=== PATIENT | female | born 1960 | race Hispanic/Latino ===

== ENCOUNTER 2018-10-24 13:42 | Emergency (ER) | payer SELFPAY ==
[2018-10-24] MEDS ORDERED: AZITHROMYCIN 200 MG/5ML ORAL SUSP ONE (14:12)
[2018-10-24] MEDS ORDERED: AMOX/K CLAV 875 MG TAB ONE (14:18)
[2018-10-24] MEDS ORDERED: HYDROCODONE/APAP 10/325 TAB ONE (14:18)
[2018-10-24] MEDS ORDERED: LIDOCAINE 1% 20 ML MDV ONE (14:18)
--- NOTE | 2018-10-24 14:43 | RAD REPORT ---
EXAM DESCRIPTION: RAD -Hand Left 3 View - 10/24/2018 2:34 pm CLINICAL HISTORY: Left hand pain status post injury FINDINGS: Moderately displaced fracture involves the base of the first metacarpal. No dislocation seen. The bones are osteoporotic
[2018-10-24] MEDS ORDERED: CEFAZOLIN SODIUM 1 GM/VIAL ONE (15:24)
[2018-10-24] MEDS ORDERED: NA CHLORIDE 0.9% 100 ML IV ONE (15:24)
--- NOTE | 2018-10-24 16:23 | RAD REPORT ---
EXAM DESCRIPTION: RAD - Humerus Right - 10/24/2018 4:17 pm CLINICAL HISTORY: PAIN Animal bite, pain and swelling COMPARISON: Hand Left 3 View dated 10/24/2018 FINDINGS: No fracture, dislocation or aggressive marrow lesion. No radiopaque foreign body seen.
--- NOTE | 2018-10-24 16:28 | ER ---
Nurse's Notes [facility] Name: Alexander Byrd Age: 58 yrs Sex: Female : 1960 Arrival Date: 10/24/2018 Time: 13:44 Bed 19 Private MD: None, None Diagnosis: Displaced fracture of shaft of first metacarpal bone, left hand;Bitten by dog;Puncture wound without foreign body of left hand;Laceration without foreign body of right upper arm Presentation: 10/24 13:54 Presenting complaint: Patient states: Dog bite to R upper arm and L wrist/ hand that ss occurred approx 45 minutes ago while at home attempting to separate her two dogs. [place] [employer] have been notified and were on scene as well as EMS. Transition of care: patient was not received from another setting of care. Onset of symptoms was October 24, 2018. Risk Assessment: Do you want to hurt yourself or someone else? Patient reports no desire to harm self or others. Initial Sepsis Screen: Does the patient meet any 2 criteria? RR > 20 per min. Does the patient have a suspected source of infection? No. Patient's initial sepsis screen is negative. Care prior to arrival: None. Care prior to arrival: kerlix dressing placed By EMS to L wrist/ hand. 13:54 Acuity: ISAIAS 3 ss 13:54 Method Of Arrival: Ambulatory ss Triage Assessment: 14:15 Bite description: bite sustained to right tricep and right bicep and right arm and left hb hand by a dog, animal information: vaccination(s) is current. Historical: - Allergies: 13:57 Advil (lip swelling); ss 13:57 peanuts; ss - PMHx: 13:57 Anxiety; ss - Immunization history:: Adult Immunizations up to date. - Social history:: Smoking status: Patient/guardian denies using tobacco. - Ebola Screening: : Patient denies exposure to infectious person Patient denies travel to an Ebola-affected area in the 21 days before illness onset. Screenin:15 Abuse screen: Denies threats or abuse. Denies injuries from another. Nutritional hb screening: No deficits noted. Tuberculosis screening: No symptoms or risk factors identified. Fall Risk None identified. Assessment: 14:05 General: Appears in no apparent distress. Behavior is cooperative, crying. Pain: Pain hb currently is 8 out of 10 on a pain scale. Neuro: Level of Consciousness is awake, alert, obeys commands, Oriented to person, place, time, situation. Cardiovascular: Heart tones S1 S2 Capillary refill < 3 seconds Patient's skin is warm and dry. Respiratory: Airway is patent Respiratory effort is even, unlabored, Respiratory pattern is regular, symmetrical, Breath sounds are clear bilaterally. GI: No signs and/or symptoms were reported involving the gastrointestinal system. : No signs and/or symptoms were reported regarding the genitourinary system. EENT: No signs and/or symptoms were reported regarding the EENT system. Derm: Skin is healthy with good turgor, Skin is pink, warm \T\ dry. Musculoskeletal: No signs and/or symptoms reported regarding the musculoskeletal system. Injury Description: multiple puncture wound to left hand, hematoma to left hand and right upper arm, lacerations to right upper arm x 3. 15:00 Reassessment: Patient appears in no apparent distress at this time. Patient and/or hb family updated on plan of care and expected duration. Pain level reassessed. Patient is alert, oriented x 3, equal unlabored respirations, skin warm/dry/pink. 15:50 Reassessment: [place] [employer] Event #[id number]. hb 16:00 Reassessment: Patient appears in no apparent distress at this time. No changes from previously documented assessment. Patient and/or family updated on plan of care and expected duration. Pain level reassessed. Patient is alert, oriented x 3, equal unlabored respirations, skin warm/dry/pink. 16:08 Reassessment: Pt refused tetanus vaccine, WATER CONSERVATION SPECIALIST Zuri lazcano. hb 17:00 Reassessment: Patient appears in no apparent distress at this time. Patient and/or hb family updated on plan of care and expected duration. Pain level reassessed. Patient is alert, oriented x 3, equal unlabored respirations, skin warm/dry/pink. Transfer to [facility] pending. Vital Signs: 13:53 BP 125 / 83; Pulse 107; Resp 22; Temp 99.0(TE); Pulse Ox 97% on R/A; Weight 68.04 kg; ss Height 5 ft. 3 in. (160.02 cm); Pain 8/10; 15:00 BP 126 / 76; Pulse 89; Resp 16; Pulse Ox 100% on R/A; hb 16:30 BP 122 / 70; Pulse 75; Resp 16; Temp 98.7; Pulse Ox 100% on R/A; Pain 4/10; hb 13:53 Body Mass Index 26.57 (68.04 kg, 160.02 cm) ED Course: 13:44 Patient arrived in ED. mr 13:44 None, None is Private Physician. mr 13:54 Zuri Fontana, [facility] kb 13:54 Elier Patrick MD is Attending Physician. kb 13:55 Triage completed. ss 13:57 Arm band placed on left wrist. ss 14:00 Patient has correct armband on for positive identification. Bed in low position. Call hb light in reach. Side rails up X 1. 14:05 Galina Le, STONE is Primary Nurse. hb 14:15 Wound care: cleaned wounds to left hand and right upper arm with chlorhexidine and dh3 normal saline. Soaked wounds to left hand with Betadine and normal saline. Temporary dressing applied to right upper arm wounds with wet gauze and Kerlix. 14:30 X-ray completed. Portable x-ray completed in exam room. Patient tolerated procedure jb2 well. 14:35 Hand Left 3 View XRAY In Process Unspecified. EDMS 16:17 X-ray completed. Portable x-ray completed in exam room. Patient tolerated procedure ls3 well. 16:18 Humerus Right XRAY In Process Unspecified. EDMS 16:47 Dressings: Kerlix X 2; left hand and right upper arm non-adherent dressing x 4 left dh3 hand and right upper arm. 17:30 No provider procedures requiring assistance completed. Patient transferred, IV remains hb in place. Administered Medications: 14:11 Drug: [place] 10 mg-325 mg 1 tabs Route: PO; hb 15:00 Follow up: Response: No adverse reaction hb 14:11 Drug: Augmentin 875 mg Route: PO; hb 15:00 Follow up: Response: No adverse reaction hb 14:50 Drug: Lidocaine (1 %) 1 vials {Note: by AMADOU Keating.} Volume: 20 ml; Route: Infiltration;hb 15:30 Follow up: Response: No adverse reaction hb 15:26 Drug: Ancef 1 grams Route: IVPB; Site: left antecubital; hb 16:08 Follow up: Response: No adverse reaction; IV Status: Completed infusion hb 16:08 Not Given (Patient Refused): Tetanus-Diphtheria Toxoid Adult 0.5 ml IM once hb 17:12 Drug: Unasyn 3 grams Route: IVPB; Infused Over: 30 mins; Site: left antecubital; hb 17:42 Follow up: Response: No adverse reaction; IV Status: Completed infusion hb Outcome: 16:28 ER care complete, transfer ordered by MD. krause 17:50 Transferred by ground EMS to [facility]. hb 17:50 Condition: stable 17:50 Instructed on the need for transfer, Demonstrated understanding of instructions. 17:52 Patient left the ED. hb Signatures: Dispatcher [employer] EDMS Zuri Fontana, PROCESSING TALC AND BORATE SUPERVISOR-C PROCESSING TALC AND BORATE SUPERVISOR-Ham RobertoaNilam Simon Moreira jb2 Simona Bailey RN RN Galina Le RN RN Talita Schaefer dh3 Monica Dailey ls3 Corrections: (The following items were deleted from the chart) 14:26 14:15 Wound care: cleaned wounds to left hand and right upper arm with chlorhexidine dh3 and normal saline. Soaked wounds to left hand with Betadine and normal saline. Dressed right upper arm wounds with wet gauze and Kerlix. dh3
--- NOTE | 2018-10-24 16:28 | EDPHYS ---
Physician Documentation [facility] Name: Alexander Byrd Age: 58 yrs Sex: Female : 1960 Arrival Date: 10/24/2018 Time: 13:44 Bed 19 Private MD: None, None ED Physician Elier Patrick HPI: 10/24 14:07 This 58 yrs old Female presents to ER via Ambulatory with complaints of Dog kb Bite. 14:07 The patient was bitten on the left hand and right upper arm, by a dog, while trying to kb stop animals from fighting, at home. Onset: The symptoms/episode began/occurred just prior to arrival. Animal information: The animal was reported to appear healthy. Animal's vaccinations are up to date. Secondary to the bite the patient reports multiple lacerations, that are superficial, with the longest being 2 cm(s), pain, swelling. Associated signs and symptoms: Pertinent positives: pain at site, swelling at site, tenderness. Severity of symptoms: At their worst the symptoms were moderate, in the emergency department the symptoms are unchanged. The patient has not experienced similar symptoms in the past. The patient has not recently seen a physician. Pt reports her dogs were fighting so she tried to break them up and ended up getting bitten. 3 lacerations to right upper arm, bleeding controlled. Decreased ROM and large hematomas to left hand, 2 puncture wounds/lacerations to left hand. Flip SHERMAN on scene to take report. Historical: - Allergies: 13:57 Advil (lip swelling); ss 13:57 peanuts; ss - PMHx: 13:57 Anxiety; ss - Immunization history:: Adult Immunizations up to date. - Social history:: Smoking status: Patient/guardian denies using tobacco. - Ebola Screening: : Patient denies exposure to infectious person Patient denies travel to an Ebola-affected area in the 21 days before illness onset. ROS: 14:04 Constitutional: Negative for fever, chills, and weight loss, ENT: Negative for injury, kb pain, and discharge, Neck: Negative for injury, pain, and swelling, Cardiovascular: Negative for chest pain, palpitations, and edema, Respiratory: Negative for shortness of breath, cough, wheezing, and pleuritic chest pain, Abdomen/GI: Negative for abdominal pain, nausea, vomiting, diarrhea, and constipation, Neuro: Negative for headache, weakness, numbness, tingling, and seizure. 14:04 MS/extremity: Positive for injury or acute deformity, bite, decreased range of motion, ecchymosis, pain, swelling, tenderness, of the left hand. 14:04 Skin: Positive for ecchymosis, hematoma, laceration(s), puncture, swelling, of the left hand and right upper arm. Exam: 14:04 Constitutional: This is a well developed, well nourished patient who is awake, alert, kb and in no acute distress. Head/Face: Normocephalic, atraumatic. Chest/axilla: Normal chest wall appearance and motion. Nontender with no deformity. No lesions are appreciated. Cardiovascular: Regular rate and rhythm with a normal S1 and S2. No gallops, murmurs, or rubs. Normal PMI, no JVD. No pulse deficits. Respiratory: Lungs have equal breath sounds bilaterally, clear to auscultation and percussion. No rales, rhonchi or wheezes noted. No increased work of breathing, no retractions or nasal flaring. Abdomen/GI: Soft, non-tender, with normal bowel sounds. No distension or tympany. No guarding or rebound. No evidence of tenderness throughout. Neuro: Awake and alert, GCS 15, oriented to person, place, time, and situation. Cranial nerves II-XII grossly intact. Motor strength 5/5 in all extremities. Sensory grossly intact. Cerebellar exam normal. Normal gait. 14:04 Musculoskeletal/extremity: Extremities: grossly normal except: noted in the left hand: bite, decreased ROM, ecchymosis, pain, swelling, tenderness, ROM: limited active range of motion due to pain, in the left hand, Circulation is intact in all extremities. Sensation intact. 14:04 Skin: injury, bite(s), superficial, jagged, of the left hand and right upper arm, laceration(s), the wound is approximately 1.5 cm(s), of the right bicep, the second wound is approximately 2 cm(s), of the right tricep, the third wound is approximately 1.5 cm(s), of the right tricep, that can be described as clean, no foreign body, irregular. Vital Signs: 13:53 BP 125 / 83; Pulse 107; Resp 22; Temp 99.0(TE); Pulse Ox 97% on R/A; Weight 68.04 kg; ss Height 5 ft. 3 in. (160.02 cm); Pain 8/10; 15:00 BP 126 / 76; Pulse 89; Resp 16; Pulse Ox 100% on R/A; hb 16:30 BP 122 / 70; Pulse 75; Resp 16; Temp 98.7; Pulse Ox 100% on R/A; Pain 4/10; hb 13:53 Body Mass Index 26.57 (68.04 kg, 160.02 cm) ss Laceration: 15:47 Wound Repair of 2cm ( 0.8in ) subcutaneous laceration to right tricep. Linear shaped.. kb Distal neuro/vascular/tendon intact. Anesthesia: Wound infiltrated with 1 mls of 1% lidocaine. Wound prep: Extensive cleansing with hibiclenz by me, Wound irrigation with saline by me. Skin closed with 2 5-0 Prolene using interrupted sutures and sterile technique. Dressed with bandaid. Patient tolerated well. 15:47 Wound Repair of 2cm ( 0.8in ) subcutaneous laceration to right tricep. Linear shaped.. kb Distal neuro/vascular/tendon intact. Anesthesia: Wound infiltrated with 1 mls of 1% lidocaine. Wound prep: Extensive cleansing with hibiclenz by me, Wound irrigation with saline by me. Skin closed with 2 5-0 Prolene using interrupted sutures and sterile technique. Dressed with bandaid. Patient tolerated well. 15:47 Wound Repair of 1.5cm ( 0.6in ) subcutaneous laceration to right bicep. Linear shaped.. kb Distal neuro/vascular/tendon intact. Anesthesia: Wound infiltrated with 1 mls of 1% lidocaine. Wound prep: Moderate cleansing with hibiclenz by me, Wound irrigation with saline by me. Skin closed with 1 5-0 Prolene using interrupted sutures and sterile technique. Dressed with bandaid. Patient tolerated well. MDM: 13:54 Patient medically screened. kb 14:07 Data reviewed: vital signs, nurses notes. Data interpreted: Pulse oximetry: on room air kb is 97 %. Interpretation: normal. 15:01 Physician consultation: Esa Alves MD was called at 15:01, regarding consult, jimi voicemail left, awaiting call back . 15:49 Physician consultation: Esa Alves MD was contacted at 15:15, regarding consult, patient's condition, after a discussion of the case, a recommendation for transfer for higher level of care is made. 16:26 Counseling: I had a detailed discussion with the patient and/or guardian regarding: the historical points, exam findings, and any diagnostic results supporting the discharge/admit diagnosis, radiology results, the need to transfer to another facility, for higher level of care, [facility] does not immediately have the required specialist. ED course: Dr Moy, hand surgeon at [facility], accepted pt for transfer. 10/24 14:01 Order name: Hand Left 3 View XRAY; Complete Time: 14:49 kb 10/24 15:46 Order name: Humerus Right XRAY; Complete Time: 16:25 kb 10/24 14:01 Order name: Prolene, Sutures; Complete Time: 14:14 kb 10/24 14:01 Order name: Dressing - Wound; Complete Time: 16:49 kb 10/24 14:01 Order name: Gloves, Sterile; Complete Time: 14:14 kb 10/24 14:01 Order name: Setup Suture Tray; Complete Time: 14:14 kb 10/24 15:02 Order name: IV Start; Complete Time: 15:27 kb Administered Medications: 14:11 Drug: [place] 10 mg-325 mg 1 tabs Route: PO; hb 15:00 Follow up: Response: No adverse reaction hb 14:11 Drug: Augmentin 875 mg Route: PO; hb 15:00 Follow up: Response: No adverse reaction hb 14:50 Drug: Lidocaine (1 %) 1 vials {Note: by AMADOU Keating.} Volume: 20 ml; Route: Infiltration;hb 15:30 Follow up: Response: No adverse reaction hb 15:26 Drug: Ancef 1 grams Route: IVPB; Site: left antecubital; hb 16:08 Follow up: Response: No adverse reaction; IV Status: Completed infusion hb 16:08 Not Given (Patient Refused): Tetanus-Diphtheria Toxoid Adult 0.5 ml IM once hb 17:12 Drug: Unasyn 3 grams Route: IVPB; Infused Over: 30 mins; Site: left antecubital; hb 17:42 Follow up: Response: No adverse reaction; IV Status: Completed infusion hb Disposition: 10/25 07:17 Co-signature as Attending Physician, Elier Patrick MD I agree with the assessment and bar plan of care. Disposition: 10/24/18 16:28 Transfer ordered to [facility]. Diagnosis are Displaced fracture of shaft of first metacarpal bone, left hand, Bitten by dog, Puncture wound without foreign body of left hand, Laceration without foreign body of right upper arm. - Reason for transfer: Higher level of care. - Accepting physician is Chinmay. - Condition is Stable. - Problem is new. - Symptoms are unchanged. Signatures: Dispatcher [employer] EDMS Zuri Fontana, WET PRESS TENDER-C WET PRESS TENDER-Ckb Elier Patrick MD MD cha Smirch, Shelby, STONE RITTER Galina Le RN RN Corrections: (The following items were deleted from the chart) 10/24 17:52 16:28 10/24/2018 16:28 Transfer ordered to [facility]. hb Diagnosis is Displaced fracture of shaft of first metacarpal bone, left hand; Bitten by dog; Puncture wound without foreign body of left hand; Laceration without foreign body of right upper arm. Reason for transfer: Higher level of care. Accepting physician is Chinmay. Condition is Stable. Problem is new. Symptoms are unchanged. kb
[2018-10-24] MEDS ORDERED: AMPICILLIN/SULBACT 3 GM in NA CHLORIDE 0.9% 100 ML IVPB ONE (17:00)
== END 2018-10-24 17:52 | disposition short-term general hospital (02) ==
LOC: ER 13:42
PROC: 0JQD0ZZ Repair Right Upper Arm Subcutaneous Tissue and Fascia, Open Approach (ICD-10-PCS; principal; 2018-10-24)
DX: S61.452A Open bite of left hand, initial encounter (principal); S41.151A Open bite of right upper arm, initial encounter; S62.242A Displaced fracture of shaft of first metacarpal bone, left hand, initial encounter for closed fracture; W54.0XXA Bitten by dog, initial encounter; F41.9 Anxiety disorder, unspecified; Z88.6 Allergy status to analgesic agent; Z91.010 Allergy to peanuts
CPT/HCPCS: 96365; 96367; 99285; J0295; J0690

== ENCOUNTER 2020-12-30 20:40 | Inpatient (IN) | payer SELFPAY ==
--- OUTSIDE RECORDS SUMMARY | 2020-12-30 20:44 | XMS REPORT | Continuity of Care Document ---
:1960 Author Organization [facility] t Address [address] [place] [address] Care Team Providers Name Role Phone Asked, No Pcp Primary Care Physician Unavailable Rebeka Domingo MD Attending Clinician Francisco CHEEK Attending Clinician Ortiz Singh MD Attending Clinician Lenin Brooke Attending Clinician MICHAEL Attending Clinician Unavailable FRANCISCO Admitting Clinician Unavailable Problems Condition Condition Condition Status Onset Resolution Last Treating Co mments Source Name Details Category Date Date Treatment Clinician Date Gastroesop Gastroesop Disease Active 2020-0 [place] hageal hageal 4-13 Methodi reflux reflux 00:00: st disease disease 00 Chest pain Chest pain Disease Active 2020-0 [place] 4-12 [facility]i 00:00: st 00 Pain of Pain of Problem Active [facility] left hand left hand ity of [place] [facility] ans Laceration Laceration Problem Active U nivers of flexor of flexor ity of muscle, muscle, [place] fascia and fascia and Ph ysici tendon of tendon of ans left index left index finger at finger at wrist and wrist and hand hand level, level, initial initial encounter encounter Extensor Extensor Problem Active Unive rs tendon tendon ity of laceration laceration [place] of left of left Physici wrist with wrist with an s open open wound, wound, initial initial encounter encounter Displaced Displaced Problem Active Uni vers fracture fracture ity of of shaft of shaft [place] of first of first Physic i metacarpal metacarpal an s bone, bone, right right hand, hand, initial initial encounter encounter for open for open fracture fracture Allergies, Adverse Reactions, Alerts Allergy Allergy Status Severity Reaction(s) Onset Inactive Treating Comm ents Source Name Type Date Date Clinician Ibuprofe Propensi Active Hives [place] ty to 12-16 [facility] adverse 00:00: st reaction 00 s to drug Family History Family Member Diagnosis Comments Start Date Stop Date Source Natural father Heart disease [place] [facility] Natural mother Arthritis [place] [facility] Natural mother Cancer [facility] Natural mother Depression [facility] Natural mother Hypertension [place] [facility] Social History Social Habit Start Date Stop Date Quantity Comments Source Tobacco use and 2020-12-16 2020-12-16 Never used [facility] ethodist exposure 00:00:00 00:00:00 Alcohol intake 2020-12-16 2020-12-16 Current drinker Javi[facility] 00:00:00 00:00:00 of alcohol (finding) Sex Ass[birth year] [facility] ethodist 00:00:00 00:00:00 Smoking Status Start Date Stop Date Source Never smoker [place] [facility] t Medications Ordered Filled Start Stop Current Ordering Indication Dosage Frequency Signature Comments Components Source Medication Medication Date Date Medication? Clinician (SIG) Name Name hydrocortis 2020- Yes Q.5D Insert Priscila isabeln one 12-18 into the Methodi (ANUSOL-HC) 00:00: 23:59 rectum 2 s t 2.5 % 00 :00 (two) rectal times a cream day as needed for hemorrhoid s for up to 30 days. Lactobacill 2020- Yes 1{tbl} Q.[id number] Take 1 [facility] 12-18 [id number] tablet by Met cristino [place] 00:00: 23:[address] ulgar 00 :00 (three) (FLORANEX) times a 1 million day for 30 cell tablet days. sucralfate 2020- Yes 1g Q.25D Take 10 mL [place] (CARAFATE) 12-18 (1 g Methodi 100 mg/mL 00:00: 23:59 total) by st suspension 00 :00 mouth 4 (four) times a day before meals and nightly for 30 days. ondansetron 2020- Yes 4mg Q8H Take 1 Priscila ston (Zofran) 4 12-18 tablet (4 Met hodi MG tablet 00:00: 23:59 mg total) st 00 :00 by mouth every 8 (eight) hours as needed for nausea or vomiting for up to 30 days. metroNIDAZO 2020- Yes 500mg Q.[id number] Take 1 Urr[facility]ia LE (FLAGYL) 12-18 [id number] tablet Methodi 500 MG 00:00: 23:59 3D ([address] tablet 00 :00 total) by mouth 3 (three) times a day for 14 days. amoxicillin 2020- Yes 500mg Q.[id number] Take 1 Renan (AMOXIL) 12-18 [id number] capsule M ethodi 500 MG 00:00: 23:59 3D ([address] capsule 00 :00 total) by mouth 3 (three) times a day for 14 days. bismuth 2020- Yes 30mL Q.25D Take 30 mL Raymon sweet subsalicyla 12-18 by mouth 4 M ethodi te (PEPTO 00:00: 23:59 (four) st BISMOL) 262 00 :00 times a mg/15 mL day for 14 suspension days. clarithromy 2020- Yes 500mg Q.5D Take 1 Raymon sweet wes 12-18 tablet Methodi (BIAXIN) 00:00: 23:59 ([address] 500 MG 00 :00 total) by tablet mouth 2 (two) times a day for 14 days. traMADoL 2020-2020- No acute pain 50mg Q6H Take 1 Renan (Ultram) 50 12-18 tablet (50 M ethodi mg tablet 00:00: 23:59 mg total) st 00 :00 by mouth every 6 (six) hours as needed for moderate pain for up to 10 days .acute pain. metroNIDAZO Yes 500mg Q.5D Take 500 [place] LE (FLAGYL) 4-08 mg by Methodi 500 MG 00:00: mouth 2 st tablet 00 (two) times a day. Acetaminoph Acetaminoph 2019-0 Yes SHEILA TAKE 1 Univers en-Codeine en-Codeine 2-28 MANSOUR TABLET ity of #3 300-30 #3 300-30 00:00: M.D. EVERY 4 TO [place] MG Oral MG Oral 00 6 HOURS Phy sici Tablet Tablet NEEDED FOR ans PAIN. Vital Signs Vital Name Observation Time Observation Value Comments Source Systolic blood 2020-12-18 07:34:51 135 mm[Hg] Jason n [facility] pressure Diastolic blood 2020-12-18 07:34:51 70 mm[Hg] Sebastian on [facility] pressure Heart rate 2020-12-18 07:34:51 77 /min Renan Emerson Body temperature 2020-12-18 07:34:51 37 Lynda Javier ton [facility] Oxygen saturation in 2020-12-18 07:34:51 96 /min Renan Emerson Arterial blood by Pulse oximetry Respiratory rate 2020-12-18 05:22:23 18 /min Javier [facility] Body height 2020-12-16 20:41:51 157.5 cm Renan Emerson Body weight 2020-12-16 20:41:51 61.916 kg Renan Emerson BMI 2020-12-16 20:41:51 24.97 kg/m2 Renan Emerson Procedures Procedure Date / Time Performing Clinician Source Performed US HEPATIC 2020-12-17 14:26:51 Deanna Singh hodist Natvarlakatelyn ECG 12-LEAD 2020-12-17 13:40:44 Mely Hirsch Anali XR SACRUM AND COCCYX 2020-12-17 13:30:00 Deanna Singh Natvarlal URINE CULTURE 2020-12-17 11:46:00 Natalee Rudolph Nv [facility]odist URINALYSIS SCREEN AND 2020-12-17 11:46:00 Natalee Rudolph MICROSCOPY, WITH REFLEX TO CULTURE TROPONIN 2020-12-17 04:00:00 Natalee Rudolph [facility] COMPREHENSIVE METABOLIC 2020-12-17 04:00:00 Natalee Rudolph [place] [facility] PANEL ESTIMATED GFR 2020-12-17 04:00:00 Natalee Rudolph Me [facility] RESPIRATORY PATHOGEN 2020-12-16 20:12:00 Danie Domingo [facility] PANEL WITH COVID-19 ECG 12-LEAD 2020-12-16 20:10:22 Natalee Rudolph [facility] TROPONIN 2020-12-16 19:28:00 Natalee Rudolph [facility] XR CHEST 1 VW PORTABLE 2020-12-16 17:00:00 Danie Domingo [facility] B NATRIURETIC PEPTIDE 2020-12-16 16:35:00 Danie Domingo [facility] CREATINE KINASE, TOTAL 2020-12-16 16:35:00 Danie Domingo [facility] (CPK) TROPONIN 2020-12-16 16:35:00 Natalee Rudolph [facility] HC COMPLETE BLD COUNT 2020-12-16 14:48:00 Danie Domingo [facility] W/AUTO DIFF COMPREHENSIVE METABOLIC 2020-12-16 14:48:00 Danie Domingo [facility] PANEL LIPASE LEVEL 2020-12-16 14:48:00 Danie Domingo [facility] AMYLASE LEVEL 2020-12-16 14:48:00 Danie Domingo [facility] ESTIMATED GFR 2020-12-16 14:48:00 Danie Domingo [facility] [U] XRAY HAND MIN 3 VWS 2018-12-19 00:00:00 [facility] LEFT [id number] Physicians [U] XRAY HAND MIN 3 VWS 2018-11-28 00:00:00 [facility] LEFT [id number] Physicians [U] XRAY HAND MIN 3 VWS 2018-11-21 00:00:00 [facility] LEFT [id number] Physicians [U] XRAY HAND MIN 3 VWS 2018-11-10 00:00:00 [facility] LEFT [id number] Physicians Post Op Promise 29 2018-11-04 00:00:00 [facility] Survey Physicians Post Op Promis 29 Survey 2018-11-04 00:00:00 [facility] Physicians Plan of Care Planned Activity Planned Date Details Comments Source Future Scheduled 2021-04-06 INFLUENZA VACCINE [place] [facility] Test 00:00:00 [code = INFLUENZA VACCINE] Future Scheduled 2010 BREAST CANCER [place] [facility] Test 00:00:00 SCREENING [code = BREAST CANCER SCREENING] Future Scheduled 2010 COLONOSCOPY SCREENING [place] [facility] Test 00:00:00 [code = COLONOSCOPY SCREENING] Future Scheduled 2010 SHINGLES VACCINES [place] [facility] Test 00:00:00 (#1) [code = SHINGLES VACCINES (#1)] Future Scheduled 1981 Screening for [facility] Test 00:00:00 malignant neoplasm of cervix (procedure) [code = 286754097] Future Scheduled 1978 Hepatitis C screening [place] [facility] Test 00:00:00 (procedure) [code = 886160309] Future Scheduled 1976 COVID-19 VACCINE (1) Priscila ston [facility] Test 00:00:00 [code = COVID-19 VACCINE (1)] Encounters Start End Encounter Admission Attending Care Care Encounter Source Date/Time Date/Time Type Type Clinicians Facility Department ID 2020-12-16 2020-12-18 Inpatient [facility] 064 [id number] [place] 00:00:00 00:00:[address] 2020-11-18 2020-11-[address] [facility] [id number] 17:09:00 19:58:00 Lauren [place] [id number] [place] [id number] Hallie [id number] 2018-12-22 2018-12-22 JOHN [facility] 51 [id number] Univers 09:45:00 09:45:00 t; joycelyn [facility] Nickolas Hollins Physici M.D. ans 2018-12-01 2018-12-01 JOHN [facility] 51 [id number] [facility] 08:45:00 08:45:00 t; joycelyn [facility] Nickolas Hollins, Physici M.D. ans 2018-11-22 2018-11-22 [facility]OD[facility] 51 [id number] Univers 10:30:00 10:30:00 t; joycelyn [facility] Nickolas Hollins Physici M.D. ans 2018-11-11 2018-11-11 [facility] JOHN RODRIGUEZ [facility] 51 [id number] Univers 14:30:00 14:30:00 t; joycelyn [facility] [place] Aliya [facility] M.D. ans 2018-11-10 2018-11-10 [facility] JOHN RODRIGUE[facility] 50 [id number] Univers 10:45:00 10:45:00 t; joycelyn [facility] Nickolas Hollins Physici M.D. ans 2018-11-03 2018-11-03 [facility] JOHN RODRIGUEZ [facility] 50 [id number] Univers 09:30:00 09:30:00 t; Gunjan SOSA M.D. [place] Aliya SOSA M.D. ans Results Test Description Test Time Test Comments Results Result Comments Source ECG 12 lead 2020-12-21 18:12:10 Test Item Value Reference Range Interpretation Comme nts Ventricular rate (test code = 253) 69 Atrial rate (test code = 255) 69 OR interval (test code = 266) 134 QRSD interval (test code = 260) 90 QT interval (test code = 264) 394 QTC interval (test code = 265) 422 P axis 1 (test code = 267) 72 QRS axis 1 (test code = 268) 4 T wave axis (test code = 270) 6 EKG impression (test code = 273) Normal sinus rhythm-Normal ECG-In automated comparison with ECG of 16-DEC-2020 20:10,-No significant change was found- Renan Cowan [id number] 17:41:04 Test Item Value Reference Range Interpretation Comments Urine culture Mixed kalina Specimen isolate (test <=10-3 col/cc InformationSp ecimen code = 34523-3) Source: Urin eSpecimen Site: Clean cat Renan Ghotra [id number] 16:31:50Hm Interface, Radiology Results 12/17/2020 4:34 PM CDT EXAMINATION: US HEPATICCLINICAL HISTORY: acute transaminitisCOMPARISON:None.TECHNIQUE: Focused sonographic evaluation of the liver was performed utilizing grayscale/B mode as well as color Doppler.FINDINGS:Liver: The liver demonstrates is normal in size and echogenicity without focal mass or intrahepatic biliary ductal dilatation.Gallbladder: The gallbladder has been surgically removed.CBD: The common bile duct measures 0.5 cm, within normal limits. Portions of the extra hepatic common bile duct measuring up to 1.0 cm, likely due to reservoir effect status post cholecystectomy.MPV: Doppler evaluation of the portal vein demonstrates normal hepatopetal flow. Measuring 0.9 cm, within normal limits.Ascites: No free fluid/ascites was seen.Right pleural effusion: NoneIM PRESSION:Prior cholecystectomy. The common bile duct measures up to 1 cm which is at the upper limits of normal following cholecystectomy.[facility]- [id number] and approved by vice president compliance/fellow: Rony Flor M.D.I, JERMAINE ACEVEDO MD, personally reviewed the images and resident's/fellow's findings and agree with the final report.Renan Sanchez Sacrum And [id number] 14:41:31Hm Interface, Radiology Results 12/17/2020 2:44 PM CDT EXAMINATION: XR SACRUM AND COCCYXCLINICAL HISTORY: painCOMPARISON: NoneIMPRESSION:7 views were obtained.No fracture. No subluxation. No suspicious osseous abnormalities.Minimal degenerative sclerosis about the sacroiliac joints.[id number] Chest 1 Vw [id number] 17:32:04Hm Interface, Radiology Results 12/16/2020 5:35 PM CDT EXAMINATION: XR CHEST 1 VW PORTABLECLINICAL HISTORY: 60 years Female chest painCOMPARISON: None.IMPRESSION:The cardiomediastinal silhouette is not enlarged The lungs are clear The osseous structures are within normal limits...[place] [facility][U] XRAY HAND MIN 3 VWS LEFT [id number] 08:31:00Images acquired, not reported on this accession number.[facility][U] XRAY HAND MIN 3 VWS LEFT [id number] 15:09:00Images acquired, not reported on this accession number.[facility][U] XRAY HAND MIN 3 VWS LEFT [id number] 2018-11-03 09:32:00Images acquired, not reported on this accession number. [facility]
[2020-12-30 22:57] LABS: Urine Blood Trace-intact (Negative); Urine Glucose Negative (Negative); Urine Protein 3+ (Negative); Urine pH 5.5 (5.0-7.0)
[2020-12-30 23:19] LABS: Absolute Lymphocytes (CBC) 1.1 K/uL (0.7-4.9); Basophils % 0.4 % (0-1.3); Hematocrit 39.3 % (36.0-45.0); Lymphocytes % 8.5 % (15.3-44.8); MPV 9.2 fL (7.6-11.3); RBC Red Blood Cell Count 4.41 M/uL (3.86-4.86)
[2020-12-30] MEDS ORDERED: CEFTRIAXONE/SWI 1gm 1 GM/10 ML SYR ONE (23:28)
[2020-12-30] MEDS ORDERED: ONDANSETRON 4 MG/2 ML VIAL ONE (23:28)
[2020-12-30] MEDS ORDERED: FAMOTIDINE 20 MG/2 ML VIAL IV ONE (23:28)
[2020-12-30 23:41] LABS: Albumin 3.9 g/dL (3.4-5.0); Bilirubin Direct 0.2 mg/dL (0-0.2); Potassium 3.5 mmol/L (3.5-5.1); Protein, Total 7.6 g/dL (6.4-8.2)
[2020-12-31] MEDS ORDERED: MORPHINE 2 MG/ML SYR ONE ×2 (00:26→02:13)
[2020-12-31 00:57] LABS: Urine Bacteria <20 /HPF (<20); Urine Urothelial Cells <5 /HPF (NONE SEEN)
[2020-12-31 00:58] LABS: Urine RBC <5 /HPF (NONE SEEN)
--- NOTE | 2020-12-31 02:25 | EDPHYS ---
Physician Documentation [facility] Name: Alexander Byrd Age: 60 yrs Sex: Female : 1960 Arrival Date: 12/30/2020 Time: 20:41 Bed 4 Private MD: ED Physician Yang Love HPI: 12/30 22:55 This 60 yrs old Female presents to ER via Ambulatory with complaints of Back cp Pain, Nausea. 22:55 The patient presents with pain that is acute, with no known mechanism of injury. cp 22:55 The symptoms are located in the left mid back and right mid back. Onset: The cp symptoms/episode began/occurred today. The pain does not radiate. Associated signs and symptoms: Pertinent positives: abdominal pain, Pertinent negatives: chest pain, constipation, fever, headache, numbness, tingling, vomiting, weakness. Severity of symptoms: in the emergency department the symptoms are unchanged, despite home interventions. Patient reports history of H. Pylori. Currently taking oral Amoxicillin, Clarithromycin and Metronidazole for past several weeks. Patient reports epigastric pain for past several months. Historical: - Allergies: 21:16 Advil (lip swelling); ca1 21:16 peanuts; ca1 - PMHx: 21:16 Anxiety; H. Pylori; ca1 - PSHx: 21:16 Cholecystectomy; ca1 - Immunization history:: Flu vaccine is up to date. - Social history:: Smoking status: Patient denies any tobacco usage or history of. ROS: 23:05 Abdomen/GI: Positive for abdominal pain, nausea, Negative for vomiting, diarrhea, cp constipation, black/tarry stool, rectal bleeding. 23:05 Constitutional: Negative for fever. cp 23:05 Cardiovascular: Negative for chest pain, palpitations. 23:05 Respiratory: Negative for cough, shortness of breath, wheezing. 23:05 Back: Positive for flank pain, bilaterally. 23:05 Neuro: Negative for altered mental status, headache, weakness. 23:05 All other systems are negative. Exam: 23:10 Constitutional: The patient appears in no acute distress, alert, awake, non-toxic, well cp developed, well nourished. 23:10 Head/Face: Normocephalic, atraumatic. cp 23:10 Eyes: Periorbital structures: appear normal, Conjunctiva: normal, no exudate, no injection, Sclera: no appreciated abnormality, Lids and lashes: appear normal, bilaterally. 23:10 ENT: External ear(s): are unremarkable, Nose: is normal, Posterior pharynx: Airway: no evidence of obstruction, patent. 23:10 Chest/axilla: Inspection: normal, Palpation: is normal, no crepitus, no tenderness. 23:10 Cardiovascular: Rate: tachycardic, Rhythm: regular. 23:10 Respiratory: the patient does not display signs of respiratory distress, Respirations: normal, no use of accessory muscles, no retractions, labored breathing, is not present, Breath sounds: are clear throughout, no decreased breath sounds. 23:10 Abdomen/GI: Inspection: abdomen appears normal, Bowel sounds: active, all quadrants, Palpation: soft, in all quadrants, moderate abdominal tenderness, in the epigastric area, involuntary guarding, is elicited in the epigastric area. 23:10 Back: pain, that is moderate, of the mid back area, ROM is painful, with all movement. 23:10 Skin: no rash present. 23:10 Neuro: Orientation: to person, place \T\ time. Mentation: is normal, Motor: moves all fours, strength is normal, Gait: is steady, without difficulty. Vital Signs: 21:12 BP 143 / 91; Pulse 108; Resp 17 S; Temp 97.7(TE); Pulse Ox 97% on R/A; Weight 58.97 kg ca1 (R); Height 5 ft. 1 in. (154.94 cm) (R); Pain 06/15; 12/31 01:20 BP 151 / 81; Pulse 91; Resp 18; Pulse Ox 98% on R/A; ea 03:00 BP 149 / 81; Pulse 91; Resp 17; Pulse Ox 98% on R/A; rv 04:00 BP 125 / 64; Pulse 87; Resp 17; Pulse Ox 95% on R/A; rv 12/30 21:12 Body Mass Index 24.56 (58.97 kg, 154.94 cm) ca1 MDM: 12/30 22:37 Patient medically screened. cp 23:00 Differential diagnosis: Cholelithiasis Neoplasm Peptic Ulcer Perforated Ulcer cp Pyelonephritis. 12/31 02:21 Data reviewed: vital signs, nurses notes, lab test result(s), radiologic studies, CT cp scan, I have discussed the patient's presentation/case with the attending Emergency Department Physician; and as a result, I will admit patient. Counseling: I had a detailed discussion with the patient and/or guardian regarding: the historical points, exam findings, and any diagnostic results supporting the discharge/admit diagnosis, lab results, radiology results. Physician consultation: Alhaji Nayelisushma DONTE was called at 02:20, was contacted at 02:20, regarding admission, to the medical/surgical unit. patient's condition. 12/30 22:48 Order name: Basic Metabolic Panel; Complete Time: 23:48 12/30 23:48 Interpretation: Normal except: GLUC 121; CRE 1.33; GFR 41. cp 12/30 22:48 Order name: CBC with Diff; Complete Time: 23:48 12/30 23:48 Interpretation: Normal except: WBC 13.10; EM% 82.9; LYM% 8.5; NEUT A 10.9. 12/30 22:48 Order name: Hepatic Function; Complete Time: 23:48 12/30 23:48 Interpretation: Normal except: GLOB 3.7. cp 12/30 22:48 Order name: Lipase; Complete Time: 23:48 12/30 23:49 Interpretation: Normal except: LIP 111. 12/30 22:48 Order name: Urine Microscopic Only; Complete Time: 00:59 12/31 00:59 Interpretation: Normal except: URCRY MANY; GLIT PRESENT. 12/30 22:56 Order name: Urine Dipstick-Ancillary; Complete Time: 23:48 [facility] 12/30 23:48 Interpretation: Normal except: UKET 1+; UBLD Trace-intact; UPROT 3+; UESTR 1+. 12/31 00:59 Order name: Urine Culture EDNC 12/31 02:21 Order name: Procalcitonin 12/31 02:21 Order name: Lactate 12/31 02:23 Order name: Blood Culture Adult (2) la1 12/31 05:22 Order name: SARS-COV-2 RT PCR EDNC 12/31 05:49 Order name: CBC with Automated Diff EDNC 12/31 05:55 Order name: Uric Acid EDNC 12/30 22:48 Order name: IV Saline Lock; Complete Time: 23:06 12/30 22:48 Order name: Labs collected and sent; Complete Time: 23:06 12/30 22:48 Order name: Urine Dipstick-Ancillary (obtain specimen); Complete Time: 23:22 12/30 23:55 Order name: CT Abd/Pelvis - IV Contrast Only cp Administered Medications: 12/30 23:20 Not Given (Other Intervention Used): Zofran (Ondansetron) 4 mg PO once ea 23:20 Not Given (Other Intervention Used): Pepcid (famotidine) 20 mg PO once ea 23:20 Drug: Pepcid (famotidine) 20 mg Route: IVP; Site: right antecubital; ea 12/31 02:03 Follow up: Response: No adverse reaction 12/30 23:20 Drug: Zofran (Ondansetron) 4 mg Route: IVP; Site: right antecubital; ea 12/31 02:03 Follow up: Response: No adverse reaction 12/30 23:21 Drug: Rocephin (cefTRIAXone) 1 grams Route: IV; Rate: 1 calculated rate; Site: right ea antecubital; 12/31 00:00 Follow up: Response: No adverse reaction; IV Status: Completed infusion ea 00:14 Drug: morphine 2 mg Route: IVP; Site: right antecubital; ea 02:02 Drug: morphine 2 mg Route: IVP; Site: right antecubital; ea 03:14 Follow up: Response: No adverse reaction ea Disposition: 02:30 Chart complete. 21:18 Co-signature as Attending Physician, Yang Love MD. rn Disposition: 12/31/20 02:24 Hospitalization ordered by Sam Love for Inpatient Admission. 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 - [facility] - Status is Inpatient Admission. ap3 - Condition is Stable. - Problem is new. - Symptoms have improved. Signatures: Dispatcher [employer] EDKarina Lim Martha, RN RN mw Woody, Diana, RN RN dw Nieto, Roman, MD MD rn Page, Corey, PA PA cp Antunez, Elena, RN RN ea Prokisch, Amanda, RN RN ap3 Tanya Wilde RN STONE ca1 Corrections: (The following items were deleted from the chart) 03:17 02:24 Hospitalization Ordered by Sam Love MD for Inpatient Admission. Preliminary mw diagnosis is Acute tubulo-interstitial nephritis. Bed requested for Telemetry/MedSurg (Inpatient). Status is Inpatient Admission. Condition is Stable. Problem is new. Symptoms have improved. cp 03:41 03:04 CORONAVIRUS+MR.LAB.BRZ ordered. EDMS EDMS 13:17 03:17 12/31/2020 02:24 Hospitalization Ordered by Sam Love MD for Inpatient bd Admission. 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 Bed requested for [facility] ER HOLD. Status is Inpatient Admission. Condition is Stable. Problem is new. Symptoms have improved. mw 13:18 13:17 12/31/2020 02:24 Hospitalization Ordered by Sam Love MD for Inpatient dw Admission. 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 Bed requested for [facility]. Status is Inpatient Admission. Condition is Stable. Problem is new. Symptoms have improved. bd 13:18 13:18 12/31/2020 02:24 Hospitalization Ordered by Sam Love MD for Inpatient bd Admission. 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 Bed requested for Telemetry/MedSurg (Inpatient). Status is Inpatient Admission. Condition is Stable. Problem is new. Symptoms have improved. dw 14:01 13:18 12/31/2020 02:24 Hospitalization Ordered by Sam Love MD for Inpatient ap3 Admission. 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 Bed requested for [facility]. Status is Inpatient Admission. Condition is Stable. Problem is new. Symptoms have improved. bd
--- NOTE | 2020-12-31 02:25 | ER ---
Nurse's Notes [facility] Name: Alexander Byrd Age: 60 yrs Sex: Female : 1960 Arrival Date: 12/30/2020 Time: 20:41 Bed 4 Private MD: Diagnosis: Acute tubulo-interstitial nephritis Presentation: 12/30 21:12 Chief complaint: Patient states: Jonathan flank pain started 1700 today. I feel like it's my ca1 kidneys. I have H. Pylori and I am on lots of medications and maybe that's what caused it. +nausea. Denies HX of Kidney stones. Coronavirus screen: Client denies travel out of the [place] in the last 14 days. nausea, Client presents with at least one sign or symptom that may indicate coronavirus-19. Standard/surgical mask placed on the client. Provider contacted for isolation considerations. The client reports previous COVID testing was negative. Date of collection: December 18, 2020. Ebola Screen: Patient negative for fever greater than or equal to 101.5 degrees Fahrenheit, and additional compatible Ebola Virus Disease symptoms Patient denies exposure to infectious person. Patient denies travel to an Ebola-affected area in the 21 days before illness onset. No symptoms or risks identified at this time. Initial Sepsis Screen: Does the patient meet any 2 criteria? No. Patient's initial sepsis screen is negative. Does the patient have a suspected source of infection? No. Patient's initial sepsis screen is negative. Risk Assessment: Do you want to hurt yourself or someone else? Patient reports no desire to harm self or others. Onset of symptoms was December 30, 2020 at 17:00. 21:12 Method Of Arrival: Ambulatory ca1 21:12 Acuity: ISAIAS 3 ca1 Historical: - Allergies: 21:16 Advil (lip swelling); ca1 21:16 peanuts; ca1 - PMHx: 21:16 Anxiety; H. Pylori; ca1 - PSHx: 21:16 Cholecystectomy; ca1 - Immunization history:: Flu vaccine is up to date. - Social history:: Smoking status: Patient denies any tobacco usage or history of. Screenin:46 Abuse screen: Denies threats or abuse. Nutritional screening: No deficits noted. ea Tuberculosis screening: No symptoms or risk factors identified. Fall Risk None identified. Assessment: 23:07 General: Appears uncomfortable, Behavior is calm, cooperative. Pain: Complains of pain rv in abdomen. Neuro: Level of Consciousness is awake, alert, obeys commands, Oriented to person, place, time, situation. Cardiovascular: Patient's skin is warm and dry. Respiratory: Airway is patent Respiratory effort is even, unlabored, Breath sounds are clear bilaterally. GI: Abdomen is round non-distended, Reports lower abdominal pain, upper abdominal pain. Derm: Skin is intact. 12/31 01:18 Reassessment: Patient and/or family updated on plan of care and expected duration. Pain ea level reassessed. Patient is alert, oriented x 3, equal unlabored respirations, skin warm/dry/pink. 03:15 Reassessment: Patient and/or family updated on plan of care and expected duration. Pain ea level reassessed. Patient is alert, oriented x 3, equal unlabored respirations, skin warm/dry/pink. Provider at bedside updating pt on plan of care. Vital Signs: 12/30 21:12 BP 143 / 91; Pulse 108; Resp 17 S; Temp 97.7(TE); Pulse Ox 97% on R/A; Weight 58.97 kg ca1 (R); Height 5 ft. 1 in. (154.94 cm) (R); Pain 10/10; 12/31 01:20 BP 151 / 81; Pulse 91; Resp 18; Pulse Ox 98% on R/A; ea 03:00 BP 149 / 81; Pulse 91; Resp 17; Pulse Ox 98% on R/A; rv 04:00 BP 125 / 64; Pulse 87; Resp 17; Pulse Ox 95% on R/A; rv 12/30 21:12 Body Mass Index 24.56 (58.97 kg, 154.94 cm) ca1 ED Course: 12/30 20:41 Patient arrived in ED. am4 21:15 Triage completed. ca1 21:16 Arm band placed on right wrist. ca1 22:36 Elier Staley PA is PHCP. cp 22:36 Yang Love MD is Attending Physician. cp 22:46 Stephanie Salas, STONE is Primary Nurse. ea 22:48 Patient has correct armband on for positive identification. Bed in low position. Call ea light in reach. Side rails up X2. 23:07 Initial lab(s) drawn, by me, sent to lab. Missed attempt(s): 20 gauge in right rv antecubital area. Inserted saline lock: 20 gauge in right forearm, using aseptic technique. Blood collected. 12/31 01:32 CT Abd/Pelvis - IV Contrast Only In Process Unspecified. EDMS 02:22 Sam Love MD is Hospitalizing Provider. cp 03:15 No provider procedures requiring assistance completed. Patient admitted, IV remains in ea place. 04:35 Inserted saline lock: 24 gauge in left upper arm, using aseptic technique. Blood ds4 collected. 07:17 Primary Nurse role handed off by Stephanie Salas RN bd Administered Medications: 12/30 23:20 Not Given (Other Intervention Used): Zofran (Ondansetron) 4 mg PO once ea 23:20 Not Given (Other Intervention Used): Pepcid (famotidine) 20 mg PO once ea 23:20 Drug: Pepcid (famotidine) 20 mg Route: IVP; Site: right antecubital; ea 12/31 02:03 Follow up: Response: No adverse reaction ea 12/30 23:20 Drug: Zofran (Ondansetron) 4 mg Route: IVP; Site: right antecubital; ea 12/31 02:03 Follow up: Response: No adverse reaction ea 12/30 23:21 Drug: Rocephin (cefTRIAXone) 1 grams Route: IV; Rate: 1 calculated rate; Site: right ea antecubital; 12/31 00:00 Follow up: Response: No adverse reaction; IV Status: Completed infusion ea 00:14 Drug: morphine 2 mg Route: IVP; Site: right antecubital; ea 02:02 Drug: morphine 2 mg Route: IVP; Site: right antecubital; ea 03:14 Follow up: Response: No adverse reaction ea Outcome: 02:24 Decision to Hospitalize by Provider. cp 04:22 Admitted to ER Hold. Please see [facility] for further documentation. rv 04:22 Condition: good 04:22 Instructed on the need for admit. 14:01 Patient left the ED. ap3 Signatures: Dispatcher [employer] EDMS Karina Roy Donovan ds4 Elier Staley PA PA Stephanie Barreto RN RN ea Prokisch, Amanda, RN RN ap3 Christopher Magallanes RN RN rv Acob, Tanya RN RN ca1 Marguerite Mendoza am4 Corrections: (The following items were deleted from the chart) 12/30 21:16 21:12 Chief complaint: Patient states: Jonathan flank pain started 1700 today. I feel like ca1 it's my kidneys. I have H. Pylori and I am on lots of medications and maybe that's what caused it. +nausea ca1
--- NOTE | 2020-12-31 03:36 | P.HP ---
Certification for Inpatient Patient admitted to: Inpatient With expected LOS: >2 Midnights Patient will require the following post-hospital care: None Practitioner: I am a practitioner with admitting privileges, knowledge of patient current condition, hospital course, and medical plan of care. Services: Services provided to patient in accordance with Admission requirements found in Title 42 Section 412.3 of the Code of Federal Regulations Patient History Date of Service: 12/31/20 Reason for admission: Bilateral pyelonephritis History of Present Illness: 60-year-old female with no significant past medical history presents emergency department for bilateral flank pain. Patient reports that she tested positive for H. pylori at the beginning of the month and has been on triple therapy with amoxicillin, clarithromycin, metronidazole for last 19 days. Patient was evaluated in the emergency department, labs significant for white blood cell count 13.1 creatinine 1.33 GFR 41 urine microscopic shows many uric acid crystals and positive for glitter cells. CT abdomen pelvis with contrast demonstrates severe bilateral perinephric stranding most likely secondary to pyelonephritis, additional finding of 1.5 cm intramural/extrophytic enhancing lesion of the stomach suggestive of a small neoplasm such as GI stromal tumor. Patient unaware of abnormal findings detailed in the stomach. ED provider wishes to admit for further evaluation and management. Allergies ibuprofen [From Advil] Allergy (Unverified 01/16/16 13:10) Unknown NKDA Allergy (Uncoded 07/23/15 03:34) Unknown No Known Allergies Allergy (Uncoded 01/16/16 02:35) Unknown peanuts Allergy (Uncoded 01/16/16 13:10) Unknown - Past Medical/Surgical History -: H-pylori -: Cholecystectomy Psychosocial/ Personal History: Patient is unemployed, lives with her - Family History Family History: Reviewed- Non-Contributory - Social History Smoking Status: Never smoker Alcohol use: No CD- Drugs: No Caffeine use: Yes Place of Residence: Home Review of Systems Gastrointestinal: Nausea, Abdominal Pain, Other (Flank pain) Physical Examination - Physical Exam General: Alert, In no apparent distress HEENT: Atraumatic, PERRLA, Mucous membr. moist/pink Neck: Supple, 2+ carotid pulse no bruit, No LAD Respiratory: Clear to auscultation bilaterally, Normal air movement Cardiovascular: Regular rate/rhythm, Normal S1 S2 Capillary refill: <2 Seconds Gastrointestinal: Normal bowel sounds, No rebound, No guarding, Tenderness (Some mild epigastric tenderness noted) Musculoskeletal: No tenderness Integumentary: No rashes Neurological: Normal speech, Normal strength at 5/5 x4 extr, Normal tone, Normal affect - Studies Laboratory Data (last 24 hrs) 12/30/20 23:04: WBC 13.10 H, Hgb 13.4, Hct 39.3, Plt Count 247 12/30/20 23:04: Sodium 141, Potassium 3.5, BUN 17, Creatinine 1.33 H, Glucose 121 H, Total Bilirubin 1.0, AST 25, ALT 63, Alkaline Phosphatase 88, Lipase 111 Assessment and Plan - Plan Assessment Bilateral pyelonephritis SARAH 1.5 cm intramural/extrophytic stomach lesion-recent history of H. pylori Plan Bilateral pyelonephritis: Blood in urine cultures obtained, patient does not appear septic at this time. Patient recently completed 19 days of antibiotic therapy with clarithromycin, metronidazole, amoxicillin. For this reason will continue with broad-spectrum antibiotics cefepime/vancomycin at this time and deescalate as appropriate. Urine microscopic negative for UTI but does show uric acid crystals and glitter cells, will obtain uric acid level with morning labs, glitter cells specific for pyelonephritis. P.r.n. pain medicine and anti emetics, start with clear liquid diet, advance as tolerated. DVT prophylaxis Lovenox 40 mg subcutaneous once daily. No signs of emphysematous pyelonephritis, obstruction, stone, will consult urology as necessary. SARAH: Likely prerenal, continue with IV fluids, recheck renal function with daily labs. Consult nephrology as necessary. 1.5 cm intramural/extrophytic stomach lesion-recent history of H. pylori : Patient with no known history of gastric cancer, will need to see Gastroenterology likely on an outpatient basis. Will consult gastroenterology as needed, discussed findings with patient and need for follow up. Discharge Plan: Home Plan to discharge in: Greater than 2 days - Advance Directives Does patient have a Living Will: No Does patient have a Durable POA for Healthcare: No - Code Status/Comfort Care Code Status Assessed: Yes (Full code) Critical Care: No Time Spent Managing Pts Care (In Minutes): 55
[2020-12-31] MEDS ORDERED: TRAMADOL HCL 50 MG TAB PO PRN (04:43)
[2020-12-31] MEDS ORDERED: ONDANSETRON 4 MG/2 ML VIAL IV PRN (04:43)
[2020-12-31] MEDS ORDERED: MORPHINE 2 MG/ML SYR IV PRN (04:43)
[2020-12-31] MEDS ORDERED: ACETAMINOPHEN 500 MG TAB PO PRN (04:43)
[2020-12-31] MEDS: NA CHLORIDE 0.9% 1,000 ML IV SCH ×3 (04:43→23:23)
[2020-12-31 04:57] VITALS: BMI 24.5
[2020-12-31] MEDS ORDERED: NA CHLORIDE 0.9% 1,000 ML ONE (05:32)
[2020-12-31 05:38] LABS: Absolute Lymphocytes (CBC) 1.5 K/uL (0.7-4.9); Basophils % 0.3 % (0-1.3); Hematocrit 39.5 % (36.0-45.0); Lymphocytes % 13.1 % (15.3-44.8); MPV 9.8 fL (7.6-11.3); RBC Red Blood Cell Count 4.31 M/uL (3.86-4.86)
[2020-12-31] MEDS ORDERED: VANCOMYCIN/NS 1 gm 1 GM/250 ML BAG IVPB SCH (06:00)
[2020-12-31] MEDS ORDERED: VANCOMYCIN 1 GM/VIAL ONE (07:39)
[2020-12-31] MEDS ORDERED: NA CHLORIDE 0.9% 250 ML ONE (07:39)
[2020-12-31] MEDS ORDERED: ENOXAPARIN 40 MG/0.4 ML SQ ONE (08:41)
[2020-12-31] MEDS: CEFTRIAXONE/SWI 1gm 1 GM/10 ML SYR IV SCH (09:00)
[2020-12-31] MEDS: ENOXAPARIN 40 MG/0.4 ML SQ SCH (09:00)
[2020-12-31] MEDS ORDERED: LACTOBACILLUS/ACIDOPHILUS TAB PO SCH (09:00)
[2020-12-31] MEDS: LACTOBACILLUS/ACIDOPHILUS TAB PO SCH ×3 (09:00→23:00)
[2020-12-31] MEDS ORDERED: CEFTRIAXONE 1 GM/NS 50 ML 1 GM/50 ML BAG IV SCH (09:00)
[2020-12-31] MEDS ORDERED: CEFTRIAXONE/SWI 1gm 1 GM/10 ML SYR ONE (10:05)
--- NOTE | 2020-12-31 10:39 | P.CNS ---
Date of Consult: 12/31/20 Chief Complaint: Bilateral pyelonephritis History of Present Illness: The patient has a 6-year-old female with a past medical history of H pylori infection who presented to the emergency department for bilateral flank pain going on for the past 2 days. Patient recently tested positive for H pylori and weaning the month. Patient was treated with triple therapy of amoxicillin, clarithromycin, and metronidazole for the past 19 days. Patient states that she intermittently took the cluster-10 however did not take it before 19 days because they gave her increasing stomach and substernal pain. Undetermined and H pylori infection has been eradicated. In the ED labs significant for white blood cell count of 13.1, creatinine 1.33, GFR 41. Urine microscopic shows uric acid crystals and positive glitter cells. CT abdomen pelvis with contrast shows severe bilateral perinephric stranding most likely secondary to pyelonephritis with an additional finding of the 1.5 cm intramural/extrophyytic lesion of the stomach. Patient has been started on empiric vancomycin and cefepime. Blood cultures pending, a urine cultures pending. Patient denies diarrhea, chest pain, shortness of breath. Patient reports bilateral lower back pain, substernal pain and pain in the bilateral upper quadrants of her abdomen. Patient states that she has ways of nausea but denies vomiting. Allergies ibuprofen [From Advil] Allergy (Unverified 12/31/20 07:58) Hives/Rash peanuts Allergy (Uncoded 12/31/20 07:58) Hives/Rash - Past Medical/Surgical History -: H-pylori -: Cholecystectomy Psychosocial/ Personal History: Patient is unemployed, lives with her - Social History Alcohol use: No CD- Drugs: No Caffeine use: Yes Place of Residence: Home Review of Systems 10-point ROS is otherwise unremarkable Physical Examination Temp Pulse Resp BP Pulse Ox 98.8 F 89 16 141/78 H 97 12/31/20 08:00 12/31/20 08:00 12/31/20 08:00 12/31/20 08:00 12/31/20 08:00 General: Alert, Acute distress HEENT: Atraumatic, Normocephalic, PERRLA Neck: Supple, 2+ carotid pulse no bruit Respiratory: Clear to auscultation bilaterally, Normal air movement Cardiovascular: No edema, Normal pulses, Regular rate/rhythm Capillary refill: <2 Seconds Gastrointestinal: Normal bowel sounds, Soft and benign, No rebound, No guarding Musculoskeletal: No clubbing, No swelling, No erythema, No tenderness Integumentary: No rashes, No breakdown, No significant lesion Neurological: Normal gait, Normal speech Laboratory Data (last 24 hrs) 12/30/20 23:04: WBC 13.10 H, Hgb 13.4, Hct 39.3, Plt Count 247 12/30/20 23:04: Sodium 141, Potassium 3.5, BUN 17, Creatinine 1.33 H, Glucose 121 H, Total Bilirubin 1.0, AST 25, ALT 63, Alkaline Phosphatase 88, Lipase 111 Conclusions/Impression: Antibiotics: Vancomycin start: 12/31 stop:-- Ceftriaxone start: 12/31 stop: -- Assessment: 1. Bilateral pyelonephritis 2. Recent H pylori infection 3. Plan: 1. Continue current antibiotic treatment. Awaiting blood culture and urine culture results. Urine microscopy showed uric acid crystals and glitter cells. Leukocytosis down trending. The patient is on probiotic. 2. Undetermined an H pylori infection has been eradicated. Recommending urea breath test. 3. AK and IA most likely due to infection/inflammation. Continue monitor creatinine and GFR. - medical management per primary team -continue monitor CBC and BMP -continue to monitor for signs of infection Plan of care discussed with Dr. Arreola Thank you for consultation.
[2020-12-31] MEDS ORDERED: ONDANSETRON 4 MG/2 ML VIAL ONE (13:18)
--- NOTE | 2020-12-31 15:33 | RAD REPORT ---
EXAM DESCRIPTION: CT - Abdomen Pelvis W Contrast - 12/31/2020 6:39 am COMPARISON: None. CLINICAL HISTORY: [facility] MAIN ABD PAIN TECHNIQUE: CT of the abdomen and pelvis was acquired with IV contrast material. Coronal and sagitt al reconstructions were obtained. Automated exposure control was utilized on this examination as a dose lowering technique. FINDINGS: Lung bases: Clear. Liver: Hepatic hypodensities measure up to 1.1 cm are favored to represent benign cysts or hemangioma s. Gallbladder and biliary: Cholecystectomy. Mild dilatation of the common bile duct is likely due to re servoir effect. Pancreas: Normal. Spleen: Normal. Adrenal glands: Normal adrenal glands. Kidneys: Severe bilateral perinephric stranding is present. Stomach and Small Bowel: There is an intramural/exophytic enhancing 1.5 cm lesion of the distal great er curvature of the stomach on series 501 image 20. Urinary bladder: Normal. Uterus and Adnexa: Normal. Colon and Appendix: The colon is unremarkable. No evidence of appendicitis. Retroperitoneum and lymph nodes: Retroperitoneal/perinephric fluid or stranding is present. No signif icant lymphadenopathy. Vascular: Mild atherosclerosis. Peritoneal cavity: No ascites or free air. Musculoskeletal and soft tissues: Soft tissues are unremarkable. No aggressive bone lesions. No com pression fracture. IMPRESSION: 1. Severe bilateral perinephric stranding is most likely secondary to urinary tract infe ction/pyelonephritis. 2. A 1.5 cm intramural/exophytic enhancing lesion of the stomach is suggestive of a small neoplasm burger ch as a GI stromal tumor. Recommend GI consultation. Electronically signed by: aDnish Kelly MD 12/31/2020 1:59 AM CDT Due to temporary technical issues with the PACS/Fluency reporting system, reports are being signed by the in house radiologists without review as a courtesy to insure prompt reporting. The interpreting radiologist is fully responsible for the content of the report.
[2021-01-01 04:59] LABS: Absolute Lymphocytes (CBC) 1.6 K/uL (0.7-4.9); Basophils % 0.6 % (0-1.3); Hematocrit 33.5 % (36.0-45.0); Lymphocytes % 17.8 % (15.3-44.8); MPV 9.9 fL (7.6-11.3); RBC Red Blood Cell Count 3.71 M/uL (3.86-4.86)
[2021-01-01 05:22] LABS: Albumin 2.9 g/dL (3.4-5.0); Bilirubin Total 0.8 mg/dL (0.2-1.0); Magnesium 2.2 mg/dL (1.8-2.4); Potassium 3.6 mmol/L (3.5-5.1); Protein, Total 6.1 g/dL (6.4-8.2); Thyroid Stimulating Hormone 0.4 uIU/mL (0.360-3.740)
[2021-01-01] MEDS: LACTOBACILLUS/ACIDOPHILUS TAB PO SCH ×3 (09:30→21:00)
[2021-01-01] MEDS: CEFTRIAXONE/SWI 1gm 1 GM/10 ML SYR IV SCH (09:30)
[2021-01-01] MEDS: NACHLORIDE 0.45% 1,000 ML IV SCH ×2 (09:30→19:30)
[2021-01-01] MEDS: ENOXAPARIN 40 MG/0.4 ML SQ SCH (09:30)
--- NOTE | 2021-01-01 09:37 | RAD REPORT ---
EXAM DESCRIPTION: US - Renal Ultrasound-Complete - 01/01/2021 9:21 am CLINICAL HISTORY: Abdominal pain/pyelonephritis COMPARISON: December 31, 2020 cat scan FINDINGS: The right kidney measures 10 cm with a normal echotexture. The left kidney measures 10 cm with a normal echotexture. Extrarenal pelves are present bilaterally Hydronephrosis is not seen. No gross abnormality of bladder IMPRESSION: Unremarkable renal ultrasound.
--- NOTE | 2021-01-01 14:42 | P.PN ---
Subjective Date of Service: 01/01/21 Chief Complaint: Bilateral pyelonephritis Subjective: Improving Patient seen and examined at bedside, stage still experiencing some pain under her diaphragm. Review of Systems 10-point ROS is otherwise unremarkable Physical Examination - Vital Signs Temperature: 99.0 F Blood Pressure: 149/76 Pulse: 75 Respirations: 18 Pulse Ox (%): 99 Assessment And Plan - Plan eneral: Alert, Acute distress HEENT: Atraumatic, Normocephalic, PERRLA Neck: Supple, 2+ carotid pulse no bruit Respiratory: Clear to auscultation bilaterally, Normal air movement Cardiovascular: No edema, Normal pulses, Regular rate/rhythm Capillary refill: <2 Seconds Gastrointestinal: Normal bowel sounds, Soft and benign, No rebound, No guarding Musculoskeletal: No clubbing, No swelling, No erythema, No tenderness Integumentary: No rashes, No breakdown, No significant lesion Neurological: Normal gait, Normal speech Conclusions/Impression: Antibiotics: Vancomycin start: 12/31 stop: 01/01 Ceftriaxone start: 12/31 stop: -- Assessment: 1. Bilateral pyelonephritis 2. Recent H pylori infection 3. SARAH Cut Plan: 1. Blood cultures negative, urine culture preliminary results shows non beta hemolytic strep. Vancomycin discontinued. Continue ceftriaxone until final patient partner urine culture is back. Patient will likely need antibiotic duration to 4 weeks. Urine microscopy showed uric acid crystals and glitter cells. The patient is on probiotic. Renal a renal ultrasound negative. CT abdomen pelvis with contrast shows severe bilateral perinephric stranding most likely secondary to pyelonephritis with an additional finding of the 1.5 cm intramural/extrophyytic lesion of the stomach. CT abdomen and pelvis did show lesion on the stomach. Recommend patient begin PPI. 2. Undetermined if H pylori infection has been eradicated. H pylori AG test ordered. 3. SARAH most likely due to infection/inflammation. Continue monitor creatinine and GFR. - medical management per primary team -continue monitor CBC and BMP -continue to monitor for signs of infection Plan of care discussed with Dr. Arreola Thank you for consultation.
--- NOTE | 2021-01-01 15:41 | P.PN ---
Subjective Date of Service: 01/01/21 Chief Complaint: Bilateral pyelonephritis Subjective: Improving, Doing well Physical Examination - Vital Signs Temperature: 99.0 F Blood Pressure: 149/76 Pulse: 75 Respirations: 18 Pulse Ox (%): 99 Assessment & Plan Discharge Plan: Home Plan to discharge in: 48 Hours Physician Review Additional Text: Assessment Bilateral pyelonephritis Acute renal failure likely related to above 1.5 cm intramural/extrophytic stomach lesion-recent history of H. pylori Plan Bilateral pyelonephritis: Continue with IV antibiotic therapy. Will monitor closely. Await urine and blood culture results to finalize. Will provide medication for pain. Encourage ambulation. Encourage incentive spirometer. Will discuss with infectious disease. DVT prophylaxis in place. Anticipate improvement over the next 24 hours with possible discharge after that time. Acute renal failure likely related to above: Likely prerenal, continue with IV fluids, renal ultrasound unremarkable. Will consult nephrology for further other conditions. 1.5 cm intramural/extrophytic stomach lesion-recent history of H. pylori : Patient with no known history of gastric cancer, will need to see Gastroenterology as an outpatient. Will discuss with her rubber goods tester concerning her recent hospitalization and findings of H. pylori. We will try to obtain records from [facility] as that is where she was treated. H. pylori antigen pending. Will consider urea breath test as an outpatient. Time Spent Managing Pts Care (In Minutes): 55
[2021-01-01] MEDS ORDERED: NA CHLORIDE 0.9% 1,000 ML ONE (19:43)
--- NOTE | 2021-01-01 20:51 | P.CNS ---
Date of Consult: 01/01/21 Reason for Consult: SARAH/ CKD Requesting Physician: Maikol Cadet Chief Complaint: Bilateral pyelonephritis History of Present Illness: 60-year-old female with no significant past medical history presents emergency department for bilateral flank pain. Patient reports that she tested positive for H. pylori at the beginning of the month and has been on triple therapy with amoxicillin, clarithromycin, metronidazole for last 19 days. Patient was evaluated in the emergency department, labs significant for white blood cell count 13.1 creatinine 1.33 GFR 41 urine microscopic shows many uric acid crystals and positive for glitter cells. CT abdomen pelvis with contrast demonstrates severe bilateral perinephric stranding most likely secondary to pyelonephritis, additional finding of 1.5 cm intramural/extrophytic enhancing lesion of the stomach suggestive of a small neoplasm such as GI stromal tumor. Patient unaware of abnormal findings detailed in the stomach. ED provider wishes to admit for further evaluation and management. 22:55 This 60 yrs old Female presents to ER via Ambulatory with complaints of Back cp Pain, Nausea. 22:55 The patient presents with pain that is acute, with no known mechanism of injury. cp 22:55 The symptoms are located in the left mid back and right mid back. Onset: The cp symptoms/episode began/occurred today. The pain does not radiate. Associated signs and symptoms: Pertinent positives: abdominal pain, Pertinent negatives: chest pain, constipation, fever, headache, numbness, tingling, vomiting, weakness. Severity of symptoms: in the emergency department the symptoms are unchanged, despite home interventions. Patient reports history of H. Pylori. Currently taking oral Amoxicillin, Clarithromycin and Metronidazole for past several weeks. Patient reports epigastric pain for past several months. Allergies ibuprofen [From Advil] Allergy (Severe, Verified 12/31/20 14:15) Hives/Rash peanuts Allergy (Severe, Uncoded 12/31/20 14:15) Hives/Rash Home medications list reviewed: Yes - Past Medical/Surgical History -: H-pylori -: Cholecystectomy Psychosocial/ Personal History: Patient is unemployed, lives with her - Social History Alcohol use: No CD- Drugs: No Caffeine use: Yes Place of Residence: Home Review of Systems 10-point ROS is otherwise unremarkable General: Weakness Neurological: Weakness Physical Examination Temp Pulse Resp BP Pulse Ox 98.8 F 85 16 153/77 H 99 01/01/21 20:00 01/01/21 20:00 01/01/21 20:00 01/01/21 20:00 01/01/21 16:30 General: In no apparent distress, Oriented x3, Cooperative HEENT: Atraumatic Neck: Supple Respiratory: Clear to auscultation bilaterally Cardiovascular: No edema, Regular rate/rhythm Gastrointestinal: Soft and benign, Non-distended Musculoskeletal: No clubbing, No contractures Integumentary: No rashes, No cyanosis Neurological: Normal speech Blood work reviewed in the chart. Imagings Data: EXAM DESCRIPTION: CT - Abdomen Pelvis W Contrast - 12/31/2020 6:39 am COMPARISON: None. CLINICAL HISTORY: [facility] MAIN ABD PAIN TECHNIQUE: CT of the abdomen and pelvis was acquired with IV contrast material. Coronal and sagittal reconstructions were obtained. Automated exposure control was utilized on this examination as a dose lowering technique. FINDINGS: Lung bases: Clear. Liver: Hepatic hypodensities measure up to 1.1 cm are favored to represent benign cysts or hemangiomas. Gallbladder and biliary: Cholecystectomy. Mild dilatation of the common bile duct is likely due to reservoir effect. Pancreas: Normal. Spleen: Normal. Adrenal glands: Normal adrenal glands. Kidneys: Severe bilateral perinephric stranding is present. Stomach and Small Bowel: There is an intramural/exophytic enhancing 1.5 cm lesion of the distal greater curvature of the stomach on series 501 image 20. Urinary bladder: Normal. Uterus and Adnexa: Normal. Colon and Appendix: The colon is unremarkable. No evidence of appendicitis. Retroperitoneum and lymph nodes: Retroperitoneal/perinephric fluid or stranding is present. No significant lymphadenopathy. Vascular: Mild atherosclerosis. Peritoneal cavity: No ascites or free air. Musculoskeletal and soft tissues: Soft tissues are unremarkable. No aggressive bone lesions. No compression fracture. IMPRESSION: 1. Severe bilateral perinephric stranding is most likely secondary to urinary tract infection/pyelonephritis. 2. A 1.5 cm intramural/exophytic enhancing lesion of the stomach is suggestive of a small neoplasm such as a GI stromal tumor. Recommend GI consultation. EXAM DESCRIPTION: US - Renal Ultrasound-Complete - 01/01/2021 9:21 am CLINICAL HISTORY: Abdominal pain/pyelonephritis COMPARISON: December 31, 2020 cat scan FINDINGS: The right kidney measures 10 cm with a normal echotexture. The left kidney measures 10 cm with a normal echotexture. Extrarenal pelves are present bilaterally Hydronephrosis is not seen. No gross abnormality of bladder IMPRESSION: Unremarkable renal ultrasound. Conclusions/Impression: A/P: Continue the current POC and Medications other than the changes listed. AM Labs PRN. Recommend daily weight. Please see the orders for complete details. SARAH in the setting of hypovolemia and pyelonephritis. CKD III with proteinuria -No NSAIDs -Continue IVF with 1/2NS Hypokalemia -Give oral KCl Hypocalcemia -Start Vitamin D HTN with CKD -Start Coreg BID Moderate malnutrition -Advance diet as tolerated -Continue probiotic Anemia in chronic illness -Monitor H&H Acute pyelonephritis -Continue Rocephin -Follow up culture Thank you kindly for the consultation.
[2021-01-01] MEDS ORDERED: POTASSIUM CL SA 10 MEQ TAB PO ONE ×2 (20:52→21:36)
[2021-01-02] MEDS ORDERED: carvediloL 6.25 MG TAB ONE (00:19)
[2021-01-02] MEDS: NACHLORIDE 0.45% 1,000 ML IV SCH (04:40)
[2021-01-02 05:18] LABS: Absolute Lymphocytes (CBC) 1.9 K/uL (0.7-4.9); Basophils % 0.7 % (0-1.3); Hematocrit 31.1 % (36.0-45.0); Lymphocytes % 24.7 % (15.3-44.8); MPV 10.1 fL (7.6-11.3); RBC Red Blood Cell Count 3.41 M/uL (3.86-4.86)
[2021-01-02 05:34] LABS: Albumin 2.8 g/dL (3.4-5.0); Bilirubin Total 0.8 mg/dL (0.2-1.0); Magnesium 2.2 mg/dL (1.8-2.4); Phosphorus 3.4 mg/dL (2.5-4.9); Protein, Total 6.1 g/dL (6.4-8.2); Uric Acid 5.1 mg/dL (2.6-6.0)
[2021-01-02] MEDS ORDERED: NACHLORIDE 0.45% 1,000 ML IV SCH (06:02)
[2021-01-02] MEDS: FAMOTIDINE 20 MG/2 ML VIAL IV SCH ×2 (09:00→21:00)
[2021-01-02] MEDS: LORazepam 2 MG/ML VIAL IV SCH ×3 (09:00→21:30)
[2021-01-02] MEDS: carvediloL 6.25 MG TAB PO SCH ×3 (09:00→21:00)
[2021-01-02] MEDS: CEFTRIAXONE/SWI 1gm 1 GM/10 ML SYR IV SCH (09:00)
[2021-01-02] MEDS ORDERED: FAMOTIDINE 20 MG/2 ML VIAL IV ONE ×2 (09:28→21:12)
--- NOTE | 2021-01-02 10:24 | P.PN ---
Subjective Date of Service: 01/02/21 Chief Complaint: Bilateral pyelonephritis Subjective: Other (Patient reports some improvement. Still reports some epigastric pain.) Physical Examination - Vital Signs Temperature: 98.8 F Blood Pressure: 143/75 Pulse: 83 Respirations: 18 Pulse Ox (%): 99 Assessment & Plan Discharge Plan: Home Plan to discharge in: 24 Hours Physician Review Additional Text: Assessment Bilateral pyelonephritis Acute renal failure likely related to above 1.5 cm intramural/extrophytic stomach lesion-recent history of H. pylori GERD Anxiety Hypertension Plan Bilateral pyelonephritis: Culture so far negative. Continue IV neurotic therapy. Encourage ambulation. Encourage incentive spirometer. Patient will likely require broad-spectrum antibiotic coverage at discharge. Patient will have GI evaluation with EGD today. Likely discharge in the next 24 to 48 hours. Acute renal failure likely related to above: Likely prerenal, continue with IV fluids, renal ultrasound unremarkable. Case discussed with nephrology. 1.5 cm intramural/extrophytic stomach lesion-recent history of H. pylori : Spoke with GI today concerning her epigastric pain. GI plans for EGD to further evaluate. Need to obtain records from [facility]. GI reports prior EGD done several years back. Urea breath test pending. GERD: We will start Pepcid. Case discussed in detail with GI. GI plans for EGD today. Anxiety: We will provide medication. Patient would benefit with psychiatric evaluation as an outpatient to determine if patient requires further medication. Hypertension: Nephrology started medication. We will monitor this closely. Adjust accordingly. Time Spent Managing Pts Care (In Minutes): 55
[2021-01-02] MEDS ORDERED: Ringers Lactate 1,000 ML IV ONE (14:40)
[2021-01-02] MEDS ORDERED: propofoL 200 MG/20 ML VIAL IV ONE (16:55)
[2021-01-02] MEDS ORDERED: LIDOCAINE 1% MPF 5 ML VIAL ONE (16:55)
[2021-01-02 17:30] VITALS: O2SAT 99
[2021-01-02] MEDS: CALCITROL 0.25 MCG CAP PO SCH (18:25)
[2021-01-02] MEDS: VITAMIN D 5,000 UNIT CAP PO SCH (18:25)
--- NOTE | 2021-01-02 20:24 | P.PN ---
Date of Service: 01/02/21 Vital Signs Temp Pulse Resp BP Pulse Ox 98.4 F 56 16 183/83 H 99 01/02/21 18:15 01/02/21 18:15 01/02/21 18:15 01/02/21 18:15 01/02/21 10:24 Medications Acetaminophen (Acetaminophen 500 Mg Tab) 500 mg PO Q4HP PRN PRN Reason: TEMP > 100' F Calcitriol (Calcitrol 0.25 Mcg Cap) 0.5 mcg PO DAILY [facility] Last Admin: 01/02/21 18:25 Dose: 0.5 mcg Documented by: Carvedilol (Carvedilol 6.25 Mg Tab) 6.25 mg PO BID [facility] Last Admin: 01/02/21 09:00 Dose: 6.25 mg Documented by: Cholecalciferol (Vitamin D 5,000 Unit Cap) 5,000 unit PO DAILY [facility] Last Admin: 01/02/21 18:25 Dose: 5,000 unit Documented by: Enoxaparin Sodium (Enoxaparin 40 Mg/0.4 Ml) 40 mg SQ DAILY [facility] Last Admin: 01/01/21 09:30 Dose: Not Given Documented by: Famotidine (Famotidine 20 Mg/2 Ml Vial) 20 mg IV BID [facility]; Protocol Last Admin: 01/02/21 09:00 Dose: 20 mg Documented by: Ceftriaxone Sodium/Sodium Chloride (Rocephin 1 Gm/10 Ml Swi Ivp) 1 gm in 10 mls @ 600 mls/hr IV DAILY [facility] Last Admin: 01/02/21 09:00 Dose: 10 mls Documented by: Sodium Chloride (Sodium Chloride 0.45%) 1,000 mls @ 50 mls/hr IV .Q20H [facility] Lactobacillus Acidoph/Bulgaricus (Lactobacillus/Acidophilus Tab) 1 tab PO TID [facility] Last Admin: 01/01/21 21:00 Dose: 1 tab Documented by: Lorazepam (Lorazepam 2 Mg/Ml Vial) 0.25 mg IV TID [facility] Last Admin: 01/02/21 14:00 Dose: 0.25 mg Documented by: Morphine Sulfate (Morphine 2 Mg/Ml Syr) 2 mg IV Q6H PRN PRN Reason: Pain scale 5-7 (Moderate) Ondansetron HCl (Ondansetron 4 Mg/2 Ml Vial) 4 mg IV Q6HP PRN PRN Reason: NAUSEA / VOMITING Last Admin: 12/31/20 13:03 Dose: 4 mg Documented by: Sodium Chloride (Flush Normal Saline 10 Ml) 10 ml IV BID [facility] Last Admin: 12/31/20 08:19 Dose: 10 ml Documented by: Tramadol HCl (Tramadol Hcl 50 Mg Tab) 50 mg PO Q6H PRN PRN Reason: Pain scale 5-7 (Moderate) Last Admin: 01/02/21 00:10 Dose: 50 mg Documented by: Microbiology Results 12/30/20 22:55 Clean Catch Urine Likely Count - Preliminary >100,000 CFU/ML. 12/30/20 22:55 Clean Catch Urine - Preliminary 12/31/20 04:20 Blood - Blood Aerobic Blood Culture - Preliminary No growth in 24 hours. 12/31/20 04:20 Blood - Blood Anaerobic Blood Culture - Preliminary No growth in 24 hours. Assessment/ Plan: Nephrology No acute cardiac or pulmonary complaints. No CP or SOB. Anxiety No acute events overnight. Vitals, medications, blood work and imaging reviewed in the chart. General: In no apparent distress, Oriented x3, Cooperative HEENT: Atraumatic Neck: Supple Respiratory: Clear to auscultation bilaterally Cardiovascular: No edema, Regular rate/rhythm Gastrointestinal: Soft and benign, Non-distended Musculoskeletal: No clubbing, No contractures Integumentary: No rashes, No cyanosis Neurological: Normal speech Blood work reviewed in the chart. Imagings Data: EXAM DESCRIPTION: CT - Abdomen Pelvis W Contrast - 12/31/2020 6:39 am COMPARISON: None. CLINICAL HISTORY: [facility] MAIN ABD PAIN TECHNIQUE: CT of the abdomen and pelvis was acquired with IV contrast material. Coronal and sagittal reconstructions were obtained. Automated exposure control was utilized on this examination as a dose lowering technique. FINDINGS: Lung bases: Clear. Liver: Hepatic hypodensities measure up to 1.1 cm are favored to represent benign cysts or hemangiomas. Gallbladder and biliary: Cholecystectomy. Mild dilatation of the common bile duct is likely due to reservoir effect. Pancreas: Normal. Spleen: Normal. Adrenal glands: Normal adrenal glands. Kidneys: Severe bilateral perinephric stranding is present. Stomach and Small Bowel: There is an intramural/exophytic enhancing 1.5 cm lesion of the distal greater curvature of the stomach on series 501 image 20. Urinary bladder: Normal. Uterus and Adnexa: Normal. Colon and Appendix: The colon is unremarkable. No evidence of appendicitis. Retroperitoneum and lymph nodes: Retroperitoneal/perinephric fluid or stranding is present. No significant lymphadenopathy. Vascular: Mild atherosclerosis. Peritoneal cavity: No ascites or free air. Musculoskeletal and soft tissues: Soft tissues are unremarkable. No aggressive bone lesions. No compression fracture. IMPRESSION: 1. Severe bilateral perinephric stranding is most likely secondary to urinary tract infection/pyelonephritis. 2. A 1.5 cm intramural/exophytic enhancing lesion of the stomach is suggestive of a small neoplasm such as a GI stromal tumor. Recommend GI consultation. EXAM DESCRIPTION: US - Renal Ultrasound-Complete - 01/01/2021 9:21 am CLINICAL HISTORY: Abdominal pain/pyelonephritis COMPARISON: December 31, 2020 cat scan FINDINGS: The right kidney measures 10 cm with a normal echotexture. The left kidney measures 10 cm with a normal echotexture. Extrarenal pelves are present bilaterally Hydronephrosis is not seen. No gross abnormality of bladder IMPRESSION: Unremarkable renal ultrasound. Conclusions/Impression: A/P: Continue the current POC and Medications other than the changes listed. AM Labs PRN. Recommend daily weight. Please see the orders for complete details. SARAH in the setting of hypovolemia and pyelonephritis. CKD III with proteinuria -No NSAIDs -Continue IVF with 1/2NS Hypokalemia -Replete prn Hypocalcemia -Continue Vitamin D HTN with CKD -Continue Coreg BID -Start Amlodipine BID Moderate malnutrition -Advance diet as tolerated -Continue probiotic Anemia in chronic illness -Monitor H&H Acute pyelonephritis -Continue Rocephin -Follow up culture
--- NOTE | 2021-01-02 20:43 | CON ---
Date of Consultation: 01/02/2021 Reason For Consultation: Midepigastric right upper quadrant and left upper quadrant pain with nausea , history of H pylori and abnormal CT scan showing possible gastric mass. History Of Present Illness: The patient is a 60-year-old female with history of hypertensio n, anxiety, gastroesophageal reflux disease, H pylori, status post laparoscopic cholecystectomy. The patient presented to hospital with midepigastric right upper quadrant and left upper quadrant pain w ith nausea. She states the pain in the upper abdomen is 9/10 at maximum, now 7/10. As stated above, she is status post cholecystectomy in the past. The patient also had severe back pain on admission with CT scan showing severe stranding around both kidneys consistent with bilateral pyelonephritis. She has had acute renal failure associated with that. She also has anemia with hemoglobin 10.5 with MCV of 91. Past Medical History: Significant for hypertension, anxiety disorder, gastroesophageal reflux diseas e, H pylori, and laparoscopic cholecystectomy. Medications: Currently in the hospital, she is on Tylenol, calcitriol, Coreg, Rocephin, vitamin D, L ovenox, Pepcid, Lactinex, Ativan, morphine, Zofran, Ultram. Allergies: IBUPROFEN AND PEANUTS. Social History: She is . Four children. No tobacco. No alcohol. Family History: Father of myocardial infarction. Mother and brother, both of colon cancer . Last colonoscopy for the patient was approximately 5 years ago. Review of Systems: The patient has severe back pain, fevers, chills, acute renal failure, midepigastric right upper quad rant and left upper quadrant pain, nausea, weakness, lethargy. No chest pain, shortness of breath, s eizure, syncope, lower extremity edema, muscle aches, joint aches, backaches, melena, hematochezia, h ematemesis, coffee-grounds emesis, hematuria, dysuria, polyuria, polydipsia. Laboratory Data: The patient has a white count of 7.9, down from 13.2 on admission; hemoglobin of 10 .5, down from 13.4 on admission; hematocrit 31; MCV of 91; platelet count 195; polys of 65%, down fro m 83%, lymphocytes 25%, monocytes 9%, eosinophils 1%. Sodium 146, potassium 4.0, chloride 115, bicar b 23, BUN of 11, creatinine of 1.7, glucose 85, uric acid 5.1, calcium 8.4, phosphorus 3.4, magnesium 2.2, total bilirubin 0.8, AST of 13, ALT of 36, alkaline phosphatase 61, total protein 6.1, albumin 2.8. TSH of 0.4, free T4 1.28. Lipase of 111, normal. UA with trace blood, many uric acid crystals , nucleated cells present, 3+ protein, 1+ leukocyte esterase, 1+ ketones, trace blood. Serology, COV [id number] abdomen and pelvis revealed a 1.5 cm intramural exophytic lesion at t he distal curvature of the stomach consistent with possible gastrointestinal stromal tumor, also arnaud re bilateral perinephric stranding consistent with bilateral pyelonephritis. Impression: 1.Midepigastric right upper quadrant and left upper quadrant pain with nausea, history of Helicobact er pylori and now with anemia with hemoglobin down to 10.5, MCV of 91. We will need to have vascular EGD. Pain is approximately 9/10 and maximum now at 7/10. She is status post laparoscopic cholecyst ectomy. I need to do an upper endoscopy to investigate this pain. 2.1.5 cm intramural exophytic lesion at the distal curvature of the stomach, noted on CT of the abdo men and pelvis. This is suggestive of gastrointestinal stromal tumor. We will need to investigate w ith EGD. 3.Severe bilateral perinephric stranding noted on CT scan, consistent with bilateral pyelonephritis. 4.Pyelonephritis and secondary acute renal failure. 5.Anemia with hemoglobin 10.5, MCV of 91.2. 6.History of hypertension, generalized anxiety disorder, gastroesophageal reflux disease, Helicobact er pylori, and laparoscopic cholecystectomy. Recommendations: 1.EGD. 2.PPI therapy. 3.Keep n.p.o. 4.Outpatient colonoscopy with family history of colon cancer in mother and brother with last colonos copy in 2015. ESTHER/JOSÉ MIGUEL Voice ID: [id number] Report ID: [id number]
[2021-01-02] MEDS: LACTOBACILLUS/ACIDOPHILUS TAB PO SCH (21:00)
[2021-01-02] MEDS: AMLODIPINE 5 MG TAB PO SCH (21:00)
[2021-01-02] MEDS ORDERED: AMLODIPINE 5 MG TAB ONE (21:22)
--- NOTE | 2021-01-02 23:27 | OP ---
Date of Procedure: 01/02/2021 Surgeon: Jaycob Harrison MD Reason For Procedure/indication: Midepigastric right upper quadrant and left upper quadrant pain wit h nausea, anemia with hemoglobin of 10.5, and history of H pylori. An abnormal CT of the abdomen rev ealed a 1.5 cm intramural exophytic lesion at the distal aspect of the greater curvature of the stoma ch suggestive of gastrointestinal stromal tumor. Medications: Per Anesthesia. Please see Anesthesia note. Informed Consent: The patient was informed of the benefits, risks, and alternatives of the procedure . Risks include infection, bleeding, perforation, aspiration, medication reaction, and even. Procedure: Esophagogastroduodenoscopy. Procedure In Detail: The patient was placed in left lateral decubitus position. Endoscope was place d in oropharynx and extended all the way down to the third portion of duodenum, brought back into the stomach. Retroflexion J-turn was performed and retroflexion views obtained. Findings include a sma ll hiatal hernia, a 1.5 cm submucosal mass in the distal aspect of the body of the stomach along the greater curvature as stated on the CT scan. There was some mild gastritis in the antrum, status post biopsies, otherwise unremarkable. Impression: Small hiatal hernia. There was some mild gastritis in the antrum and there was a 1.5 cm submucosal lesion in the distal aspect of the body of stomach along the greater curvature as describ ed on CT scan suggestive of gastrointestinal stromal tumor. This could not be biopsied since it was submucosal. Recommendations: 1.Await biopsy results. 2.Acid suppression therapy. 3.Endoscopic ultrasound to be performed at tertiary center for further characterization of this prob able GIST tumor and once diagnosed, we will refer to Oncology for probably tyrosine kinase inhibitor therapy. WS/MODL Voice ID: [id number] Report ID: [id number]
[2021-01-03 05:40] LABS: Absolute Lymphocytes (CBC) 1.4 K/uL (0.7-4.9); Basophils % 0.6 % (0-1.3); Lymphocytes % 18.2 % (15.3-44.8); MPV 9.6 fL (7.6-11.3); RBC Red Blood Cell Count 3.65 M/uL (3.86-4.86)
[2021-01-03 05:54] LABS: Albumin 2.9 g/dL (3.4-5.0); Bilirubin Total 0.8 mg/dL (0.2-1.0); Magnesium 2.1 mg/dL (1.8-2.4); Potassium 3.7 mmol/L (3.5-5.1); Protein, Total 6.3 g/dL (6.4-8.2)
[2021-01-03] MEDS ORDERED: OXYTOCIN/LR 0 UNIT/0 ML BAG IV ONE (07:48)
[2021-01-03] MEDS: VITAMIN D 5,000 UNIT CAP PO SCH (09:00)
[2021-01-03] MEDS: AMLODIPINE 5 MG TAB PO SCH (09:00)
[2021-01-03] MEDS: carvediloL 6.25 MG TAB PO SCH (09:00)
[2021-01-03] MEDS: FAMOTIDINE 20 MG/2 ML VIAL IV SCH (09:00)
[2021-01-03] MEDS: CEFTRIAXONE/SWI 1gm 1 GM/10 ML SYR IV SCH (09:00)
[2021-01-03] MEDS: LORazepam 2 MG/ML VIAL IV SCH (09:00)
[2021-01-03] MEDS: CALCITROL 0.25 MCG CAP PO SCH (09:00)
[2021-01-03] MEDS: LACTOBACILLUS/ACIDOPHILUS TAB PO SCH (09:00)
--- NOTE | 2021-01-03 09:12 | P.DS ---
Admission Date: 12/31/20 Discharge Date: 01/03/21 Primary Care Provider: none; GI-Dr. Harrison Disposition: ROUTINE DISCHARGE Discharge Condition: GOOD Reason for Admission: Bilateral pyelonephritis Consultations: GI-Dr. Harrison Nephrology-Dr. Bush Infectious disease-Dr. Arreola Procedures: COVID: Negative CT scan: FINDINGS: Lung bases: Clear. Liver: Hepatic hypodensities measure up to 1.1 cm are favored to represent benign cysts or hemangiomas. Gallbladder and biliary: Cholecystectomy. Mild dilatation of the common bile duct is likely due to reservoir effect. Pancreas: Normal. Spleen: Normal. Adrenal glands: Normal adrenal glands. Kidneys: Severe bilateral perinephric stranding is present. Stomach and Small Bowel: There is an intramural/exophytic enhancing 1.5 cm lesion of the distal greater curvature of the stomach on series 501 image 20. Urinary bladder: Normal. Uterus and Adnexa: Normal. Colon and Appendix: The colon is unremarkable. No evidence of appendicitis. Retroperitoneum and lymph nodes: Retroperitoneal/perinephric fluid or stranding is present. No significant lymphadenopathy. Vascular: Mild atherosclerosis. Peritoneal cavity: No ascites or free air. Musculoskeletal and soft tissues: Soft tissues are unremarkable. No aggressive bone lesions. No compression fracture. IMPRESSION: 1. Severe bilateral perinephric stranding is most likely secondary to urinary tract infection/pyelonephritis. 2. A 1.5 cm intramural/exophytic enhancing lesion of the stomach is suggestive of a small neoplasm such as a GI stromal tumor. Recommend GI consultation Renal US: COMPARISON: December 31, 2020 cat scan FINDINGS: The right kidney measures 10 cm with a normal echotexture. The left kidney measures 10 cm with a normal echotexture. Extrarenal pelves are present bilaterally Hydronephrosis is not seen. No gross abnormality of bladder IMPRESSION: Unremarkable renal ultrasound. EGD: Date of Procedure: 01/02/2021 Surgeon: Jaycob Harrison MD Reason For Procedure/indication: Midepigastric right upper quadrant and left upper quadrant pain with nausea, anemia with hemoglobin of 10.5, and history of H pylori. An abnormal CT of the abdomen revealed a 1.5 cm intramural exophytic lesion at the distal aspect of the greater curvature of the stomach suggestive of gastrointestinal stromal tumor. Medications: Per Anesthesia. Please see Anesthesia note. Procedure: Esophagogastroduodenoscopy. Procedure In Detail: The patient was placed in left lateral decubitus position. Endoscope was placed in oropharynx and extended all the way down to the third portion of duodenum, brought back into the stomach. Retroflexion J-turn was performed and retroflexion views obtained. Findings include a small hiatal hernia, a 1.5 cm submucosal mass in the distal aspect of the body of the stomach along the greater curvature as stated on the CT scan. There was some mild gastritis in the antrum, status post biopsies, otherwise unremarkable. Impression: Small hiatal hernia. There was some mild gastritis in the antrum and there was a 1.5 cm submucosal lesion in the distal aspect of the body of stomach along the greater curvature as described on CT scan suggestive of gastrointestinal stromal tumor. This could not be biopsied since it was submucosal. Recommendations: 1. Await biopsy results. 2. Acid suppression therapy. 3. Endoscopic ultrasound to be performed at tertiary center for further characterization of this probable GIST tumor and once diagnosed, we will refer to Oncology for probably tyrosine kinase inhibitor therapy. Medical Problem List: Bilateral pyelonephritis Acute renal failure likely related to above CT showing 1.5 cm intramural/extrophytic stomach lesion status post EDG showing small hiatal hernia, mild gastritis in the antrum, and 1.5 cm submucosal lesion in the distal aspect of the body of the stomach along the greater curvature as described by CT scan suggestive of gastric intestinal stromal tumor Mild gastritis with small hiatal hernia Anxiety Hypertension Brief History of Present Illness: 60-year-old female with no significant past medical history presents emergency department for bilateral flank pain. Patient reports that she tested positive for H. pylori at the beginning of the month and has been on triple therapy with amoxicillin, clarithromycin, metronidazole for last 19 days. Patient was evaluated in the emergency department, labs significant for white blood cell count 13.1 creatinine 1.33 GFR 41 urine microscopic shows many uric acid crystals and positive for glitter cells. CT abdomen pelvis with contrast demonstrates severe bilateral perinephric stranding most likely secondary to pyelonephritis, additional finding of 1.5 cm intramural/extrophytic enhancing lesion of the stomach suggestive of a small neoplasm such as GI stromal tumor. Patient unaware of abnormal findings detailed in the stomach. Patient admitted for further evaluation and treatment. Hospital Course: Patient was admitted for flank pain secondary to bilateral pyelonephritis. Patient also found to have acute renal failure. Patient had been recently treated for H pylori and been on multiple antibiotic therapy. In her work-up CT scan showed pyelonephritis but also showed a 1.5 cm intramural/extrophytic stomach lesion. Patient was seen and evaluated by infectious disease, GI and nephrology. Patient responded well to IV antibiotic therapy. Blood and urine cultures were negative. Concerning her pyelonephritis this has improved. At discharge the patient will continue with Cipro 250 mg 1 pill twice daily for 10 more days. Patient will also continue with lactobacillus 3 times a day. Recommend to recheck urine culture at that time to monitor resolution. UTI prevention provided. Education on pyelonephritis also provided. Patient will need to establish care with a local PCP to us to follow-up this hospitalization. Patient plans to follow-up with Dr. Cutler. For her acute renal failure, patient has done well. Renal function improved. Patient seen by nephrology. Recommend no further use of and also anti-inf lammatories. Future medications will need to be renally dosed. Wean ultrasound unremarkable. At discharge patient will continue with vitamin D 5000 units daily and calcitriol 0.5 mcg daily. Recommend to recheck labBMP in 1 week. Recommend follow-up with nephrology in 1 to 2 weeks to follow-up his hospitalization. As for the abnormal CT finding. Patient was seen and evaluated by GI who she has seen in the past. EGD was performed. Small hiatal hernia, mild gastritis in the antrum and a 1.5 cm submucosal lesion in the distal aspect of the body of the stomach along the greater curvature was identified. No biopsy was obtained since this lesion was submucosal. This lesion is suspicious for gastrointestinal stromal tumor. GI recommends that she see GI at a higher level center as an outpatient for Endoscopic US with EGD for Biospy. She will need to call Dr. Harrison at discharge to get information to arrange this as outpatient for next week. If this is cancer, she will also need to make arrangements for oncology. Biopsy will need to be obtained first. For her Gastritis and hiatal hernia, she will continue with Pepcid 20 mg one pill twice daily. Follow up with GI within one week to follow up this hospitalization. Patient found to have elevated blood pressure with hypertension. Medications were initiated. At discharge blood pressure better controlled with medication. At discharge patient will continue with Norvasc 5 mg 1 pill twice daily and carvedilol 6.25 mg 1 pill twice daily. Recommend to monitor blood pressure daily. Recommend to maintain blood pressure less than 130/80. Further adjustment can be done by PCP or nephrology. Patient will need to establish care with a local PCP to further monitor and address. Patient with anxiety. Recommend follow-up with PCP to further address. Vital Signs/Physical Exam: Temp Pulse Resp BP Pulse Ox 98.4 F 60 16 141/69 H 99 01/03/21 04:00 01/03/21 04:00 01/03/21 04:00 01/03/21 04:00 01/02/21 10:24 General: Alert, In no apparent distress, Oriented x3, Cooperative HEENT: Atraumatic Neck: Supple Respiratory: Clear to auscultation bilaterally, Normal air movement Cardiovascular: Normal pulses, Regular rate/rhythm Gastrointestinal: Normal bowel sounds, Soft and benign, Non-distended, No tenderness, No masses, No rebound, No guarding Musculoskeletal: No erythema, No tenderness, No warmth Integumentary: No tenderness/swelling Neurological: Normal speech, Normal strength at 5/5 x4 extr, Normal tone, Normal affect Laboratory Data at Discharge: WBC 7.50 K/uL (4.3-10.9) 01/03/21 05:02 Hgb 11.0 g/dL (12.0-15.0) L 01/03/21 05:02 Hct 33.0 % (36.0-45.0) L 01/03/21 05:02 Plt Count 211 K/uL (152-406) 01/03/21 05:02 Sodium 144 mmol/L (136-145) 01/03/21 05:02 Potassium 3.7 mmol/L (3.5-5.1) 01/03/21 05:02 BUN 11 mg/dL (7-18) 01/03/21 05:02 Creatinine 1.55 mg/dL (0.55-1.3) H 01/03/21 05:02 Glucose 82 mg/dL (74-106) 01/03/21 05:02 Uric Acid 5.1 mg/dL (2.6-6.0) 01/02/21 04:41 Phosphorus 3.4 mg/dL (2.5-4.9) 01/02/21 04:41 Magnesium 2.1 mg/dL (1.8-2.4) 01/03/21 05:02 Total Bilirubin 0.8 mg/dL (0.2-1.0) 01/03/21 05:02 AST 14 U/L (15-37) L 01/03/21 05:02 ALT 34 U/L (12-78) 01/03/21 05:02 Alkaline Phosphatase 63 U/L (45-117) 01/03/21 05:02 Lipase 111 U/L (73-393) 12/30/20 23:04 Home Medications: Amlodipine [Norvasc*] 5 mg PO BID #60 tab 01/03/21 Calcitrol [Rocaltrol*] 0.5 mcg PO DAILY #60 cap 01/03/21 Cholecalciferol (Vitamin D3) [Vitamin D 5,000 IU Cap*] 5,000 unit PO DAILY #30 cap 01/03/21 Ciprofloxacin HCl [Cipro 500 MG Tablet] 250 mg PO BID #10 tab 01/03/21 Famotidine [Pepcid] 20 mg PO BID #60 tab 01/03/21 Lactobacillus Acidophilus [Acidophilus Lactobacilli] 1 each PO TID #90 capsule 01/03/21 carvediloL [Coreg*] 6.25 mg PO BID #60 tab 01/03/21 New Medications: Lactobacillus Acidophilus [Acidophilus Lactobacilli] 1 each PO TID #90 capsule Ciprofloxacin HCl [Cipro 500 MG Tablet] 250 mg PO BID #10 tab carvediloL [Coreg*] 6.25 mg PO BID #60 tab Amlodipine [Norvasc*] 5 mg PO BID #60 tab Famotidine [Pepcid] 20 mg PO BID #60 tab Calcitrol [Rocaltrol*] 0.5 mcg PO DAILY #60 cap Cholecalciferol (Vitamin D3) [Vitamin D 5,000 IU Cap*] 5,000 unit PO DAILY #30 cap Physician Discharge Instructions: Patient was admitted for flank pain secondary to bilateral pyelonephritis. Patient also found to have acute renal failure. Patient had been recently treated for H pylori and been on multiple antibiotic therapy. In her work-up CT scan showed pyelonephritis but also showed a 1.5 cm intramural/extrophytic stomach lesion. Patient was seen and evaluated by infectious disease, GI and nephrology. Patient responded well to IV antibiotic therapy. Blood and urine cultures were negative. Concerning her pyelonephritis this has improved. At discharge the patient will continue with Cipro 250 mg 1 pill twice daily for 10 more days. Patient will also continue with lactobacillus 3 times a day. Recommend to recheck urine culture at that time to monitor resolution. UTI prevention provided. Education on pyelonephritis also provided. Patient will need to establish care with a local PCP to us to follow-up this hospitalization. Patient plans to follow-up with Dr. Cutler. For her acute renal failure, patient has done well. Renal function improved. Patient seen by nephrology. Recommend no further use of and also anti- inflammatories. Future medications will need to be renally dosed. Wean ultrasound unremarkable. At discharge patient will continue with vitamin D 5000 units daily and calcitriol 0.5 mcg daily. Recommend to recheck labBMP in 1 week. Recommend follow-up with nephrology in 1 to 2 weeks to follow-up his hospitalization. As for the abnormal CT finding. Patient was seen and evaluated by GI who she has seen in the past. EGD was performed. Small hiatal hernia, mild gastritis in the antrum and a 1.5 cm submucosal lesion in the distal aspect of the body of the stomach along the greater curvature was identified. No biopsy was obtained since this lesion was submucosal. This lesion is suspicious for gastrointest inal stromal tumor. GI recommends that she see GI at a higher level center as an outpatient for Endoscopic US with EGD for Biospy. She will need to call Dr. Harrison at discharge to get information to arrange this as outpatient for next week. If this is cancer, she will also need to make arrangements for oncology. Biopsy will need to be obtained first. For her Gastritis and hiatal hernia, she will continue with Pepcid 20 mg one pill twice daily. Follow up with GI within one week to follow up this hospitalization. Patient found to have elevated blood pressure with hypertension. Medications were initiated. At discharge blood pressure better controlled with medication. At discharge patient will continue with Norvasc 5 mg 1 pill twice daily and carvedilol 6.25 mg 1 pill twice daily. Recommend to monitor blood pressure daily. Recommend to maintain blood pressure less than 130/80. Further adjustment can be done by PCP or nephrology. Patient will need to establish care with a local PCP to further monitor and address. Patient with anxiety. Recommend follow-up with PCP to further address. Diet: AHA Activity: Ad siddharth Time spent managing pt's care (in minutes): 55
[2021-01-03 11:15] VITALS: BP 146/67; TEMP 99
--- NOTE | 2021-01-03 12:12 | P.PN ---
Subjective Date of Service: 01/03/21 Primary Care Provider: none; GI-Dr. Harrison Chief Complaint: Bilateral pyelonephritis Patient seen and examined at bedside, plan for Dc home today. Patient being sent home on oral ciprofloxacin. Review of Systems 10-point ROS is otherwise unremarkable Physical Examination - Vital Signs Temperature: 99.0 F Blood Pressure: 146/67 Pulse: 78 Respirations: 16 Pulse Ox (%): 99 - Studies Temp Pulse Resp BP Pulse Ox 99.0 F 78 16 146/67 H 99 01/03/21 11:14 01/03/21 11:14 01/03/21 11:14 01/03/21 11:14 01/02/21 10:24 Assessment And Plan - Plan eneral: Alert, Acute distress HEENT: Atraumatic, Normocephalic, PERRLA Neck: Supple, 2+ carotid pulse no bruit Respiratory: Clear to auscultation bilaterally, Normal air movement Cardiovascular: No edema, Normal pulses, Regular rate/rhythm Capillary refill: <2 Seconds Gastrointestinal: Normal bowel sounds, Soft and benign, No rebound, No guarding Musculoskeletal: No clubbing, No swelling, No erythema, No tenderness Integumentary: No rashes, No breakdown, No significant lesion Neurological: Normal gait, Normal speech Conclusions/Impression: Antibiotics: Vancomycin start: 12/31 stop: 01/01 Ceftriaxone start: 12/31 stop: 01/14 Assessment: 1. Bilateral pyelonephritis 2. Recent H pylori infection 3. SARAH Cut Plan: 1. Blood cultures negative, urine culture preliminary results shows non beta hemolytic strep. Vancomycin discontinued. Continue ceftriaxone-the patient candies Dc home on oral clindamycin. Patient will likely need antibiotic duration to 2 weeks. Urine microscopy showed uric acid crystals and glitter cells. The patient is on probiotic. Renal a renal ultrasound negative. CT abdomen pelvis with contrast shows severe bilateral perinephric stranding most likely secondary to pyelonephritis with an additional finding of the 1.5 cm intramural/extrophyytic lesion of the stomach. CT abdomen and pelvis did show lesion on the stomach. Recommend patient begin PPI. 2. Undetermined if H pylori infection has been eradicated. H pylori AG test ordered. 3. SARAH most likely due to infection/inflammation. Continue monitor creatinine and GFR. - medical management per primary team -continue monitor CBC and BMP -continue to monitor for signs of infection Plan of care discussed with Dr. Arreola Thank you for consultation.
== END 2021-01-03 11:30 | disposition home or self-care (01) | DRG 683 ==
LOC: ER 20:40 → ERHOLD 12-31 04:34 → 2ND-WC 12-31 13:40
PROVIDERS: ADMIT Family Medicine; ATTEND Family Medicine
PROC: 0DB68ZX Excision of Stomach, Via Natural or Artificial Opening Endoscopic, Diagnostic (ICD-10-PCS; principal; 2021-01-02 13:30)
DX: N17.9 Acute kidney failure, unspecified (principal); E44.0 Moderate protein-calorie malnutrition; A04.8 Other specified bacterial intestinal infections; N10 Acute pyelonephritis; K21.9 Gastro-esophageal reflux disease without esophagitis; F41.9 Anxiety disorder, unspecified; K29.50 Unspecified chronic gastritis without bleeding; K44.9 Diaphragmatic hernia without obstruction or gangrene; K31.9 Disease of stomach and duodenum, unspecified; Z20.822 Contact with and (suspected) exposure to COVID-19; N18.30 Chronic kidney disease, stage 3 unspecified; K29.70 Gastritis, unspecified, without bleeding; D49.0 Neoplasm of unspecified behavior of digestive system; B95.4 Other streptococcus as the cause of diseases classified elsewhere; I12.9 Hypertensive chronic kidney disease with stage 1 through stage 4 chronic kidney disease, or unspecified chronic kidney disease; E87.6 Hypokalemia; E83.51 Hypocalcemia; D63.8 Anemia in other chronic diseases classified elsewhere; E86.1 Hypovolemia; Z68.24 Body mass index [BMI] 24.0-24.9, adult
CPT/HCPCS: 36415; 74177; 76770; 80048; 80053; 80076; 81003; 81015; 83013; 83014; 83605; 83690; 83735; 84100; 84145; 84439; 84443; 84550; 85025; 87040; 87077; 87086; 87088; 87186; 88305; 88312; 96365; 96375; 99285; J0696; J1650; J2270; J2405; J2590; J2704; J3370; J7030; J7050; J7120; Q9967; U0003

== ENCOUNTER 2021-01-05 05:06 | Emergency (ER) | payer OTHER, SELFPAY ==
--- OUTSIDE RECORDS SUMMARY | 2021-01-05 05:10 | XMS REPORT | Continuity of Care Document ---
:[address] [facility] t Address [address] [place] [place] [address] Care Team Providers Name Role Phone Asked, No Pcp Primary Care Physician Unavailable Rebeka Domingo MD Attending Clinician Francisco CHEEK Attending Clinician Ortiz Signh MD Attending Clinician Lenin Brooke Attending Clinician [...] fracture ity of of shaft of shaft [place] of first of first Physic i metacarpal [...] Stop Date Source Natural father Heart disease [place] Natural mother Arthritis [place] [facility] Natural mother Cancer [facility] thodist Natural mother Depression [facility] thodist Natural mother Hypertension [place] Social History Social Habit Start Date Stop Date Quantity Comments Source Tobacco use and 2020-12-16 2020-12-16 Never used [facility] ethodist exposure 00:00:00 00:00:00 Alcohol intake 2020-12-16 2020-12-16 Current drinker Javiert on Mandaen 00:00:00 00:00:00 of alcohol (finding) Sex [birth year] [facility] ethodist 00:00:00 00:00:00 Smoking Status Start Date Stop Date Source Never smoker [place] [facility] t Medications Ordered Filled Start Stop [...] to 30 days. Lactobacill 2020- Yes 1{tbl} Q.[id number] Take 1 [facility] 12-18 [id number] tablet by Met cristino [place] 00:00: 23:[address] ulgar 00 :00 (three) (FLORANEX) times a 1 million day for 30 cell tablet days. sucralfate 2020- Yes 1g Q.25D Take 10 mL [place] (CARAFATE) 12-18 (1 g Methodi 100 mg/mL [...] for up to 30 days. metroNIDAZO 2020- No 500mg Q.43708412 Take 1 Urrutia LE (FLAGYL) 12-18 [id number] tablet Methodi 500 MG 00:00: 23:59 3D ([address] tablet 00 :00 total) by mouth 3 (three) times a day for 14 days. amoxicillin 2020- No 500mg Q.99157492 Take 1 Renan (AMOXIL) 12-18 [id number] capsule M ethodi 500 MG 00:00: 23:59 3D ([address] capsule 00 :00 total) by mouth 3 (three) times a day for 14 days. bismuth 2020- No 30mL Q.25D Take 30 mL Raymon sweet subsalicyla 12-18 by mouth 4 M ethodi te (PEPTO 00:00: 23:59 (four) st BISMOL) 262 00 :00 times a mg/15 mL day for 14 suspension days. clarithromy 2020- No 500mg Q.5D Take 1 Raymon wseet wes 12-18 tablet Methodi (BIAXIN) 00:00: 23:59 ([address] 500 MG 00 :00 total) by tablet mouth 2 (two) times a day for 14 days. traMADoL 2020-2020- No acute pain 50mg Q6H Take 1 Urrutia (Ultram) 50 12-18 tablet (50 M ethodi [...] blood 2020-12-18 07:34:51 135 mm[Hg] Jason n Mandaen pressure Diastolic blood 2020-12-18 07:34:51 70 mm[Hg] Sebastian on Mandaen pressure Heart rate 2020-12-18 07:34:51 77 /min Renan Emerson Body temperature 2020-12-18 07:34:51 37 Lynda Javier ton [place]anda[place] Oxygen saturation in 2020-12-18 07:34:51 96 /min Renan Emerson Arterial blood by Pulse oximetry Respiratory rate 2020-12-18 05:22:23 18 /min Javier ton Mandaen Body height 2020-12-16 20:41:51 157.5 cm Renan Emerson Body weight 2020-12-16 20:41:51 61.916 kg Renan Emerson BMI 2020-12-16 20:41:51 24.97 kg/m2 Renan Emerson Procedures Procedure Date / Time Performing Clinician Source Performed US HEPATIC 2020-12-17 14:26:51 Deanna Singh hodist Natvarlakatelyn ECG 12-LEAD 2020-12-17 13:40:44 Mely Hirsch Anali XR SACRUM AND COCCYX 2020-12-17 13:30:00 Deanna Singh Natvarlal URINE CULTURE 2020-12-17 11:46:00 Natalee Rudolph Fl thodist URINALYSIS SCREEN AND 2020-12-17 11:46:00 Natalee Rudolph MICROSCOPY, WITH REFLEX TO CULTURE TROPONIN 2020-12-17 04:00:00 Natalee Rudolph Fl thodist COMPREHENSIVE METABOLIC 2020-12-17 04:00:00 Natalee Rudolph [place] PANEL ESTIMATED GFR 2020-12-17 04:00:00 Natalee Rudolph Me thodist RESPIRATORY PATHOGEN 2020-12-16 20:12:00 Danie Domingo on Mandaen PANEL WITH COVID-19 ECG 12-LEAD 2020-12-16 20:10:22 Natalee Rudolph [place] Me thodist TROPONIN 2020-12-16 19:28:00 Natalee Rudolph Me thodist XR CHEST 1 VW PORTABLE 2020-12-16 17:00:00 Danie Domingo Manda[place] B NATRIURETIC PEPTIDE 2020-12-16 16:35:00 Danie Domingo [place] CREATINE KINASE, TOTAL 2020-12-16 16:35:00 Danie Domingo Manda[place] (CPK) TROPONIN 2020-12-16 16:35:00 Natalee Rudolph Me thodist HC COMPLETE BLD COUNT 2020-12-16 14:48:00 Danie Domingo [place] W/AUTO DIFF COMPREHENSIVE METABOLIC 2020-12-16 14:48:00 Danie Domingo [place] PANEL LIPASE LEVEL 2020-12-16 14:48:00 Danie Domingo Me thodist AMYLASE LEVEL 2020-12-16 14:48:00 Danie Domingo Me thodist ESTIMATED GFR 2020-12-16 14:48:00 Danie Domingo Me thodist [U] XRAY HAND MIN 3 VWS 2018-12-19 00:00:00 [facility] LEFT [id number] Physicians [U] XRAY HAND MIN 3 VWS 2018-11-28 00:00:00 [facility] LEFT [id number] Physicians [U] XRAY HAND MIN 3 VWS 2018-11-21 00:00:00 [facility] LEFT [id number] Physicians [U] XRAY HAND MIN 3 VWS 2018-11-10 00:00:00 [facility] LEFT [id number] Physicians Post Op Promise 29 2018-11-04 00:00:00 [facility] Survey Physicians Post Op Promis 29 Survey 2018-11-04 00:00:00 [facility] Physicians Plan of Care Planned Activity Planned Date Details Comments Source Future Scheduled 2021-04-06 INFLUENZA VACCINE [place] Test 00:00:00 [code = INFLUENZA VACCINE] Future Scheduled 2010 BREAST CANCER [place] [facility] Test 00:00:00 SCREENING [code = BREAST CANCER SCREENING] Future Scheduled 2010 COLONOSCOPY SCREENING [place] Test 00:00:00 [code = COLONOSCOPY SCREENING] Future Scheduled 2010 SHINGLES VACCINES [place] Test 00:00:00 (#1) [code = SHINGLES VACCINES (#1)] Future Scheduled 1981 Screening for [facility] thodist Test 00:00:00 malignant neoplasm of cervix (procedure) [code = 047205473] Future Scheduled 1978 Hepatitis C screening [place] Test 00:00:00 (procedure) [code = 700990828] Future Scheduled 1976 COVID-19 VACCINE (1) Priscila ston Mandaen Test 00:00:00 [code = COVID-19 VACCINE (1)] Encounters Start End Encounter Admission Attending Care Care Encounter Source Date/Time Date/Time Type Type Clinicians Facility Department ID 2020-12-16 2020-12-18 Inpatient [facility] [id number] [place] 00:00:00 00:00:[address] DE[address]NA [address] 2020-11-18 2020-11-18 Emergency [facility] [id number] 17:09:00 19:58:00 Lauren [place] [id number] [place] [id number] [place] [id number] 2018-12-22 2018-12-22 JOHN [facility] 51 [id number] [facility] 09:45:00 09:45:00 t; joycelyn [facility] Nickolas Hollins Physici M.D. ans 2018-12-01 2018-12-01 JOHN Hern[facility] 51 [id number] [facility] 08:45:00 08:45:00 t; joycelyn [facility] Nickolas Hollins, Physici M.D. ans 2018-11-22 2018[facility]11[facility]OD[facility] 51 [id number] [facility] 10:30:00 10:30:00 t; joycelyn [facility] Nickolas Hollins Physici M.D. ans 2018-11-11 2018-11-11 [facility] JOHN RODRIGUEZ [facility]ics 51 [id number] Univers 14:30:00 14:30:00 t; [facility] [place] Aliya SOSA M.D. ans 2018-11-10 2018-11-10 [facility] JOHN RODRIGUEZ [facility] 50 [id number] Univers 10:45:00 10:45:00 t; joycelyn [facility] Nickolas Hollins Physici M.D. ans 2018-11-03 2018-11-03 [facility] JOHN RODRIGUEZ Orthopedics 50 [id number] Univers 09:30:00 09:30:00 t; Gunjan SOSA M.D. [place] Aliya SOSA M.D. ans Results Test Description Test Time Test Comments Results Result Comments Source ECG 12 lead 2020-12-21 18:12:10 Test Item Value Reference Range Interpretation Comme nts Ventricular rate (test code = 253) 69 Atrial rate (test code = 255) 69 WA interval (test code = 266) 134 QRSD [...] 20:10,-No significant change was found- Renan Cowan [id number] 17:41:04 Test Item Value Reference Range Interpretation Comments Urine culture Mixed kalina Specimen isolate (test <=10-3 col/cc InformationSp ecimen code = 04204-3) Source: Urin eSpecimen Site: Clean cat Renan Ghotra [id number] 16:31:50Hm Interface, Radiology Results 12/17/2020 4:34 PM [...] at the upper limits of normal following cholecystectomy.[facility]- [id number] and approved by residential insurance inspector/fellow: Rony Flor M.D.I, JERMAINE ACEVEDO MD, personally reviewed the images and resident's/fellow's findings and agree with the final report.Renan Sanchez Sacrum And [id number] 14:41:31Hm Interface, Radiology Results 12/17/2020 2:44 PM CDT EXAMINATION: XR SACRUM AND COCCYXCLINICAL HISTORY: painCOMPARISON: NoneIMPRESSION:7 views were obtained.No fracture. No subluxation. No suspicious osseous abnormalities.Minimal degenerative sclerosis about the sacroiliac joints.[id number] 1 Vw [id number] 17:32:04Hm Interface, Radiology Results 12/16/2020 5:35 PM CDT EXAMINATION: XR CHEST 1 VW PORTABLECLINICAL HISTORY: 60 years Female chest painCOMPARISON: None.IMPRESSION:The cardiomediastinal silhouette is not enlarged The lungs are clear The osseous structures are within normal limits...Urrutia Mandaen[U] XRAY HAND MIN 3 VWS LEFT [id number] 08:31:00Images acquired, not reported on this accession number.[facility][U] XRAY HAND MIN 3 VWS LEFT [id number] 15:09:00Images acquired, not reported on this accession number.[facility][U] XRAY HAND MIN 3 VWS LEFT [id number] 2018-11-03 09:32:00Images acquired, not reported on this accession number. [facility]
[2021-01-05 05:48] LABS: Absolute Lymphocytes (CBC) 1.5 K/uL (0.7-4.9); Basophils % 0.9 % (0-1.3); Hematocrit 36.9 % (36.0-45.0); Lymphocytes % 20.6 % (15.3-44.8); MPV 8.8 fL (7.6-11.3); RBC Red Blood Cell Count 4.09 M/uL (3.86-4.86)
[2021-01-05 06:10] LABS: Albumin 3.5 g/dL (3.4-5.0); Bilirubin Direct 0.2 mg/dL (0-0.2); Bilirubin Total 0.9 mg/dL (0.2-1.0); Potassium 3.5 mmol/L (3.5-5.1); Protein, Total 7.6 g/dL (6.4-8.2)
[2021-01-05] MEDS ORDERED: NA CHLORIDE 0.9% 1,000 ML ONE ×2 (06:42→10:01)
[2021-01-05] MEDS ORDERED: FAMOTIDINE 20 MG/2 ML VIAL IV ONE (06:42)
[2021-01-05] MEDS ORDERED: MORPHINE 4 MG/ML SYR ONE ×2 (06:42→07:57)
[2021-01-05] MEDS ORDERED: ONDANSETRON 4 MG/2 ML VIAL ONE (06:42)
--- NOTE | 2021-01-05 09:20 | RAD REPORT ---
EXAM DESCRIPTION: CTAbdomen Pelvis W Contrast - 01/05/2021 9:09 am CLINICAL HISTORY: Abdominal pain. Abd pain;Nausea / vomiting COMPARISON: Abdomen Pelvis W Contrast dated 12/31/2020 TECHNIQUE: Biphasic CT imaging of the abdomen and pelvis was performed with 100 ml non-ionic IV cont rast. All CT scans are performed using dose optimization technique as appropriate and may include automated exposure control or mA/KV adjustment according to patient size. FINDINGS: The lung bases are clear. Small benign liver cysts. No aggressive liver lesion. No intra or extrahepatic biliary tree dilatatio n. Spleen, pancreas and adrenal glands are normal. There has been reduction in the degree perinephric fat stranding since the prior study. No abscess is present. No significant obstructive uropathy is seen. No bowel obstruction, free air, free fluid or abscess. The appendix is normal. No evidence of signi ficant lymphadenopathy. No suspicious bony findings. IMPRESSION: Moderate improvement in the perinephric fluid/ fat stranding since the comparative study .
--- NOTE | 2021-01-05 10:07 | ER ---
Nurse's Notes [facility] Name: Alexander Byrd Age: 60 yrs Sex: Female : 1960 Arrival Date: 01/05/2021 Time: 05:09 Bed 17 Private MD: Diagnosis: Upper abdominal pain, unspecified Presentation: 01/05 05:23 Chief complaint: Patient states: PATIENT WAS RECENTLY BEEN ADMITTED FOR KIDNEY rv INFECTION, DISCHARGED AND STILL HAVING SOME RUQ PAIN, INSISTS THAT THE PAIN IS CAUSED BY H. PYLORI. ENDOSCOPY WAS DONE DURING HOSPITALIZATION, FOUND HERNIA AND LESION, PATIENT IS ADVISED FOR A BIOPSY OUTPATIENT, BUT THE PAIN IS WORSE. Coronavirus screen: Client denies travel out of the [place] in the last 14 days. Ebola Screen: No symptoms or risks identified at this time. Initial Sepsis Screen: Does the patient meet any 2 criteria? No. Patient's initial sepsis screen is negative. Does the patient have a suspected source of infection? No. Patient's initial sepsis screen is negative. Risk Assessment: Do you want to hurt yourself or someone else? Patient reports no desire to harm self or others. Onset of symptoms was January 05, 2021. 05:23 Method Of Arrival: Ambulatory rv 05:23 Acuity: ISAIAS 3 rv Triage Assessment: 05:26 General: Appears uncomfortable, Behavior is calm, cooperative. Pain: Complains of pain rv in right upper quadrant. EENT: No signs and/or symptoms were reported regarding the EENT system. Neuro: Level of Consciousness is awake, alert, obeys commands, Oriented to person, place, time, situation. Cardiovascular: Patient's skin is warm and dry. Respiratory: Airway is patent Respiratory effort is even, unlabored, Breath sounds are clear bilaterally. GI: Abdomen is flat, non-distended. Derm: Skin is intact. Historical: - Allergies: 05:26 Advil (lip swelling); rv 05:26 peanuts; rv - PMHx: 05:26 Anxiety; h. pylori; rv - PSHx: 05:26 Cholecystectomy; rv - Immunization history:: Adult Immunizations up to date. - Social history:: Smoking status: Patient denies any tobacco usage or history of. Screenin:27 Abuse screen: Denies threats or abuse. Denies injuries from another. Nutritional rv screening: No deficits noted. Tuberculosis screening: No symptoms or risk factors identified. Fall Risk None identified. Assessment: 05:28 GI: Bowel sounds present X 4 quads. Abd is soft and non tender X 4 quads. rv 07:05 General: Appears in no apparent distress. Behavior is calm, cooperative. Pain: rb3 Complains of pain in right upper quadrant Pain currently is 6 out of 10 on a pain scale. Neuro: Level of Consciousness is awake, alert, obeys commands, Oriented to person, place, time, situation. Cardiovascular: Patient's skin is warm and dry. Respiratory: Airway is patent Respiratory effort is even, unlabored, Respiratory pattern is regular, symmetrical. 08:00 Reassessment: Patient appears in no apparent distress at this time. Patient and/or rb3 family updated on plan of care and expected duration. Pain level reassessed. Patient is alert, oriented x 3, equal unlabored respirations, skin warm/dry/pink. 09:00 Reassessment: Patient appears in no apparent distress at this time. Patient and/or rb3 family updated on plan of care and expected duration. Pain level reassessed. at the bedside. 10:00 Reassessment: Patient appears in no apparent distress at this time. No changes from rb3 previously documented assessment. Vital Signs: 05:23 BP 164 / 99; Pulse 86; Resp 18; Temp 98.4; Pulse Ox 97% on R/A; Weight 58.97 kg; Height rv 5 ft. 1 in. (154.94 cm); Pain 10/10; 07:00 BP 165 / 89; Pulse 66; Resp 16; Pulse Ox 99% ; rb3 08:00 BP 167 / 92; Pulse 78; Resp 19; Pulse Ox 98% ; rb3 09:00 BP 154 / 67; Pulse 66; Resp 17; Pulse Ox 99% ; rb3 10:00 BP 168 / 91; Pulse 77; Resp 16; Pulse Ox 100% ; rb3 05:23 Body Mass Index 24.56 (58.97 kg, 154.94 cm) rv ED Course: 05:09 Patient arrived in ED. bp1 05:15 Christopher Magallanes RN is Primary Nurse. rv 05:26 Triage completed. rv 05:26 Mina Freire MD is Attending Physician. 7 05:27 Arm band placed on right wrist. Patient placed in the treatment room, on a stretcher, rv Patient notified of wait time. 05:27 Patient has correct armband on for positive identification. Pulse ox on. NIBP on. rv 05:38 Inserted saline lock: 20 gauge in right antecubital area, using aseptic technique. rv Blood collected. 05:38 Initial lab(s) drawn, by me, sent to lab. rv 08:34 Attending Physician role handed off by Mina Freire MD ma2 08:34 Roel Noel MD is Attending Physician. ma2 09:08 CT Abd/Pelvis - PO and IV Contrast In Process Unspecified. EDMS 10:56 No provider procedures requiring assistance completed. IV discontinued, intact, rb3 bleeding controlled, No redness/swelling at site. Pressure dressing applied. Administered Medications: 06:28 Drug: NS 0.9% 1000 ml Route: IV; Rate: 1 bolus; Site: right antecubital; rr5 06:28 Drug: Zofran (Ondansetron) 4 mg Route: IVP; Site: right antecubital; rr5 07:05 Follow up: Response: No adverse reaction rb3 06:30 Drug: Pepcid (famotidine) 20 mg Route: IVP; Site: right antecubital; rr5 07:05 Follow up: Response: No adverse reaction rb3 06:32 Drug: morphine 4 mg {Note: 2mg/IV given as per patients request; RASS 0.} Route: IVP; rr5 Site: right antecubital; 07:05 Follow up: Response: No adverse reaction; Pain is unchanged, physician notified rb3 07:56 Drug: morphine 4 mg Route: IVP; Site: right antecubital; kg 08:22 Follow up: Response: No adverse reaction; Pain is decreased rb3 09:44 Drug: NS 0.9% 1000 ml Route: IV; Rate: 1 bolus; Site: right antecubital; rb3 10:33 Follow up: IV Status: Completed infusion rb3 10:20 Drug: Rocephin (cefTRIAXone) 1 grams Route: IV; Rate: calculated rate; Site: right rb3 antecubital; 10:40 Follow up: Response: No adverse reaction; IV Status: Completed infusion rb3 Outcome: 10:06 Discharge ordered by . ma2 10:56 Discharged to home ambulatory. rb3 10:56 Condition: stable 10:56 Discharge instructions given to patient, Instructed on discharge instructions, follow up and referral plans. Demonstrated understanding of instructions, follow-up care, Prescriptions given X none 10:58 Patient left the ED. rb3 Signatures: Dispatcher [employer] EDMS Roel Noel MD MD ma2 Christopher Magallanes RN RN rv Sam Augustin RN RN rr5 Madeline Alba Maurice, MD MD 7 Hafsa Beltre RN RN rb3 Cady Thornton kg
--- NOTE | 2021-01-05 10:07 | EDPHYS ---
Physician Documentation [facility] Name: Alexander Byrd Age: 60 yrs Sex: Female : 1960 Arrival Date: 01/05/2021 Time: 05:09 Bed 17 Private MD: ED Physician Roel Noel HPI: 01/05 06:44 This 60 yrs old Female presents to ER via Ambulatory with complaints of mh7 Abdominal Pain. 06:44 The patient presents with abdominal pain in the upper abdomen. mh7 06:44 Onset: The symptoms/episode began/occurred yesterday. The symptoms do not radiate. mh7 Associated signs and symptoms: Pertinent positives: nausea, Pertinent negatives: anorexia, blood in stools, chest pain, constipation, diarrhea, dysuria, fever, headache, hematuria, palpitations, shortness of breath, vaginal discharge, vomiting, vomiting blood. The symptoms are described as intermittent, vague, waxing/waning. Modifying factors: The symptoms are alleviated by nothing, the symptoms are aggravated by medication(s). Severity of pain: At its worst the pain was moderate last night, in the emergency department the pain is unchanged. 06:44 The patient has been recently been admitted at [facility], was mh7 discharged last week. Historical: - Allergies: 05:26 Advil (lip swelling); rv 05:26 peanuts; rv - PMHx: 05:26 Anxiety; h. pylori; rv - PSHx: 05:26 Cholecystectomy; rv - Immunization history:: Adult Immunizations up to date. - Social history:: Smoking status: Patient denies any tobacco usage or history of. ROS: 06:44 Constitutional: Negative for fever, chills, and weight loss, Eyes: Negative for injury, mh7 pain, redness, and discharge, ENT: Negative for injury, pain, and discharge, Neck: Negative for injury, pain, and swelling, Cardiovascular: Negative for chest pain, palpitations, and edema, Respiratory: Negative for shortness of breath, cough, wheezing, and pleuritic chest pain, Back: Negative for injury and pain, : Negative for injury, bleeding, discharge, and swelling, MS/Extremity: Negative for injury and deformity, Skin: Negative for injury, rash, and discoloration, Neuro: Negative for headache, weakness, numbness, tingling, and seizure, Psych: Negative for depression, anxiety, suicide ideation, homicidal ideation, and hallucinations, Allergy/Immunology: Negative for hives, rash, and allergies, Endocrine: Negative for neck swelling, polydipsia, polyuria, polyphagia, and marked weight changes, Hematologic/Lymphatic: Negative for swollen nodes, abnormal bleeding, and unusual bruising. Exam: 06:44 Constitutional: This is a well developed, well nourished patient who is awake, alert, mh7 and in no acute distress. Head/Face: Normocephalic, atraumatic. Eyes: Pupils equal round and reactive to light, extra-ocular motions intact. Lids and lashes normal. Conjunctiva and sclera are non-icteric and not injected. Cornea within normal limits. Periorbital areas with no swelling, redness, or edema. Neck: Trachea midline, no thyromegaly or masses palpated, and no cervical lymphadenopathy. Supple, full range of motion without nuchal rigidity, or vertebral point tenderness. No Meningismus. Chest/axilla: Normal chest wall appearance and motion. Nontender with no deformity. No lesions are appreciated. Cardiovascular: Regular rate and rhythm with a normal S1 and S2. No gallops, murmurs, or rubs. Normal PMI, no JVD. No pulse deficits. Respiratory: Lungs have equal breath sounds bilaterally, clear to auscultation and percussion. No rales, rhonchi or wheezes noted. No increased work of breathing, no retractions or nasal flaring. 06:44 Back: No spinal tenderness. No costovertebral tenderness. Full range of motion. Skin: Warm, dry with normal turgor. Normal color with no rashes, no lesions, and no evidence of cellulitis. MS/ Extremity: Pulses equal, no cyanosis. Neurovascular intact. Full, normal range of motion. Neuro: Awake and alert, GCS 15, oriented to person, place, time, and situation. Cranial nerves II-XII grossly intact. Motor strength 5/5 in all extremities. Sensory grossly intact. Cerebellar exam normal. Normal gait. Psych: Awake, alert, with orientation to person, place and time. Behavior, mood, and affect are within normal limits. 06:44 Abdomen/GI: Inspection: obese scar(s), are noted in the right upper quadrant, Bowel sounds: normal, in all quadrants, Palpation: moderate abdominal tenderness, in the epigastric area, right upper quadrant and left upper quadrant, mass, is not appreciated, rebound tenderness, is not appreciated, voluntary guarding, is not appreciated, involuntary guarding, is not appreciated, no appreciated organomegaly, Rectal exam: the exam is deferred, because of patient request, Indicators: McBurney's point is not tender, Hansen's sign is negative, Rovsing's sign is negative, Obturator sign is negative, Psoas sign is negative, Liver: no appreciated palpable abnormalities, Hernia: not appreciated. Vital Signs: 05:23 BP 164 / 99; Pulse 86; Resp 18; Temp 98.4; Pulse Ox 97% on R/A; Weight 58.97 kg; Height rv 5 ft. 1 in. (154.94 cm); Pain 10/10; 07:00 BP 165 / 89; Pulse 66; Resp 16; Pulse Ox 99% ; rb3 08:00 BP 167 / 92; Pulse 78; Resp 19; Pulse Ox 98% ; rb3 09:00 BP 154 / 67; Pulse 66; Resp 17; Pulse Ox 99% ; rb3 10:00 BP 168 / 91; Pulse 77; Resp 16; Pulse Ox 100% ; rb3 05:23 Body Mass Index 24.56 (58.97 kg, 154.94 cm) rv MDM: 07:01 Transition of care: After a detail discussion of the patient's case, care is mh7 transferred to Roel Noel MD. 08:57 Differential diagnosis: pancreatitis, Peritonitis, Pyelonephritis, urinary tract ma2 infection. 10:05 Data reviewed: vital signs, nurses notes. Counseling: I had a detailed discussion with [facility] the patient and/or guardian regarding: the historical points, exam findings, and any diagnostic results supporting the discharge/admit diagnosis, the presence of at least one elevated blood pressure reading (>120/80) during this emergency department visit, the need for outpatient follow up. Response to treatment: the patient's symptoms have markedly improved after treatment. 10:06 Patient medically screened. [facility] 01/05 05:32 Order name: Basic Metabolic Panel; Complete Time: 06:51 rv 01/05 05:32 Order name: CBC with Diff; Complete Time: 06:51 rv 01/05 05:32 Order name: Hepatic Function; Complete Time: 06:51 rv 01/05 05:32 Order name: Lipase; Complete Time: 06:51 rv 01/05 06:52 Order name: CT Abd/Pelvis - PO and IV Contrast; Complete Time: 09:28 mh7 01/05 10:09 Order name: Urine Dipstick-Ancillary EDMS 01/05 05:32 Order name: IV Saline Lock; Complete Time: 06:02 rv 01/05 05:32 Order name: Labs collected and sent; Complete Time: 06:02 rv 01/05 05:32 Order name: Urine Dipstick-Ancillary (obtain specimen); Complete Time: 10:55 rv Administered Medications: 06:28 Drug: NS 0.9% 1000 ml Route: IV; Rate: 1 bolus; Site: right antecubital; rr5 06:28 Drug: Zofran (Ondansetron) 4 mg Route: IVP; Site: right antecubital; rr5 07:05 Follow up: Response: No adverse reaction rb3 06:30 Drug: Pepcid (famotidine) 20 mg Route: IVP; Site: right antecubital; rr5 07:05 Follow up: Response: No adverse reaction rb3 06:32 Drug: morphine 4 mg {Note: 2mg/IV given as per patients request; RASS 0.} Route: IVP; rr5 Site: right antecubital; 07:05 Follow up: Response: No adverse reaction; Pain is unchanged, physician notified rb3 07:56 Drug: morphine 4 mg Route: IVP; Site: right antecubital; kg 08:22 Follow up: Response: No adverse reaction; Pain is decreased rb3 09:44 Drug: NS 0.9% 1000 ml Route: IV; Rate: 1 bolus; Site: right antecubital; rb3 10:33 Follow up: IV Status: Completed infusion rb3 10:20 Drug: Rocephin (cefTRIAXone) 1 grams Route: IV; Rate: calculated rate; Site: right rb3 antecubital; 10:40 Follow up: Response: No adverse reaction; IV Status: Completed infusion rb3 Disposition: 01/05/21 10:06 Discharged to Home. Impression: Upper abdominal pain, unspecified. - Condition is Stable. - Discharge Instructions: Abdominal Pain, Adult. - Medication Reconciliation Form, Thank You Letter, Antibiotic Education, Prescription Opioid Use form. - Follow up: Private Physician; When: Tomorrow; Reason: If symptoms return. Signatures: Dispatcher [employer] EDMS Roel Noel MD MD ma2 Christopher Magallanes, RN RN rv Sam Augustin RN RN rr5 Mina Freire MD MD mh7 Hafsa Beltre RN RN rb3 Cady Thornton kg Corrections: (The following items were deleted from the chart) 10:58 10:06 01/05/2021 10:06 Discharged to Home. Impression: Upper abdominal pain, rb3 unspecified. Condition is Stable. Forms are Medication Reconciliation Form, Thank You Letter, Antibiotic Education, Prescription Opioid Use. Follow up: Private Physician; When: Tomorrow; Reason: If symptoms return. martha
[2021-01-05 10:09] LABS: Urine Blood 1+ (Negative); Urine Glucose Negative (Negative); Urine Protein Negative (Negative); Urine pH 5.5 (5.0-7.0)
[2021-01-05] MEDS ORDERED: CEFTRIAXONE/SWI 1gm 1 GM/10 ML SYR ONE (10:33)
[2021-01-05 11:05] VITALS: TEMP 98.4
[2021-01-05 11:10] VITALS: BP 168/91; O2SAT 100
== END 2021-01-05 10:58 | disposition home or self-care (01) ==
LOC: ER 05:06
DX: R10.10 Upper abdominal pain, unspecified (principal); F41.9 Anxiety disorder, unspecified
CPT/HCPCS: 36415; 74177; 80048; 80076; 81003; 83690; 85025; 96361; 96365; 96375; 99284; J0696; J2405; J7030; Q9967

== ENCOUNTER 2021-01-19 20:31 | Emergency (ER) | payer SELFPAY ==
--- OUTSIDE RECORDS SUMMARY | 2021-01-19 20:34 | XMS REPORT | Continuity of Care Document ---
:1960 Author Organization [facility] t Address [address] [place] [address] Care Team Providers Name Role Phone Asked, [...] fracture ity of of shaft of shaft [place] of first of first Physic i metacarpal [...] Stop Date Source Natural father Heart disease [place] [facility] Natural mother Arthritis [facility] [place] [facility] thodist Natural mother Cancer [facility] [place] [facility] thodist Natural mother Depression [facility] [place] [facility] thodist Natural mother Hypertension [facility] Social History Social Habit Start Date Stop Date Quantity Comments Source Tobacco use and 2020-12-16 2020-12-[address] [facility] ethodist exposure 00:00:00 00:00:00 Alcohol intake 2020-12-16 2020-12-16 Current drinker Javiert on [facility] 00:00:00 00:00:00 of alcohol (finding) Sex Assigned At [address] [facility] ethodist 00:00:00 00:00:00 Smoking Status Start Date Stop Date Source Never smoker [place] [facility] t Medications Ordered Filled Start Stop Current Ordering Indication Dosage Frequency Signature Comments Components Source Medication Medication Date Date Medication? Clinician (SIG) Name Name hydrocortis 2020- No Q.5D Insert Priscila isabeln one 12-18 into the Methodi (ANUSOL-HC) 00:00: 23:59 rectum 2 s t 2.5 % 00 :00 (two) rectal times a cream day as needed for hemorrhoid s for up to 30 days. Lactobacill 2020- No 1{tbl} Q.[id number] Take 1 [facility] 12-18 [id number] tablet by Met cristino [place] 00:00: 23:[address] ulgar 00 :00 (three) (FLORANEX) times a 1 million day for 30 cell tablet days. sucralfate 2020- No 1g Q.25D Take 10 mL [place] (CARAFATE) 12-18 (1 g Methodi 100 mg/mL 00:00: 23:59 total) by st suspension 00 :00 mouth 4 (four) times a day before meals and nightly for 30 days. ondansetron 2020- No 4mg Q8H Take 1 Priscila ston (Zofran) 4 12-18 tablet (4 Met hodi MG tablet 00:00: 23:59 mg total) st 00 :00 by mouth every 8 (eight) hours as needed for nausea or vomiting for up to 30 days. metroNIDAZO 2020- No 500mg Q.54922813 Take 1 Urrutia LE (FLAGYL) 12-18 [id number] tablet Methodi 500 MG 00:00: 23:59 3D ([address] tablet 00 :00 total) by mouth 3 (three) times a day for 14 days. amoxicillin 2020- No 500mg Q.98508460 Take 1 Renan (AMOXIL) 12-18 [id number] capsule M ethodi 500 MG 00:00: 23:59 [...] 2020- No 500mg Q.5D Take 1 Raymon sweet wes [...] up to 10 days .acute pain. metroNIDAZO 2020- Yes 500mg Q.5D Take 500 H [place] [...] blood 2020-12-18 07:34:51 135 mm[Hg] Jason n [facility] pressure Diastolic blood 2020-12-18 07:34:51 70 mm[Hg] Sebastian on [facility] pressure Heart rate 2020-12-18 07:34:51 77 /min Renan Emerson Body temperature 2020-12-18 07:34:51 37 Lynda Javier ton [facility] Oxygen saturation in 2020-12-18 07:34:51 96 /min Renan Emerson Arterial blood by Pulse oximetry Respiratory rate 2020-12-18 05:22:23 18 /min [place] [facility] Body height 2020-12-16 20:41:51 157.5 cm Renan Emerson Body weight 2020-12-16 20:41:51 61.916 kg Renan Emerson BMI 2020-12-16 20:41:51 24.97 kg/m2 Renan Emerson Procedures Procedure Date / Time Performing Clinician Source Performed US HEPATIC 2020-12-17 14:26:51 Deanna iSngh hodist Natvarlakatelyn ECG 12-LEAD 2020-12-17 13:40:44 Mely Hirsch Anali XR SACRUM AND COCCYX 2020-12-17 13:30:00 Deanna Singh Natvarlal URINE CULTURE 2020-12-17 11:46:00 Natalee Rudolph [facility] URINALYSIS SCREEN AND 2020-12-17 11:46:00 Natalee Rudolph MICROSCOPY, WITH REFLEX TO CULTURE TROPONIN 2020-12-17 04:00:00 Natalee Rudolph [place] [facility] COMPREHENSIVE METABOLIC 2020-12-17 04:00:00 Natalee Rudolph [place] [facility] PANEL ESTIMATED GFR 2020-12-17 04:00:00 Natalee Rudolph Me [facility]ist RESPIRATORY PATHOGEN 2020-12-16 20:12:00 Danie Domingo on [facility] PANEL WITH COVID-19 ECG 12-LEAD 2020-12-16 20:10:22 Natalee Rudolph Ren[place] [facility] TROPONIN 2020-12-16 19:28:00 Natalee Rudolph [facility] XR CHEST 1 VW PORTABLE 2020-12-16 17:00:00 Danie Domingo [facility] B NATRIURETIC PEPTIDE 2020-12-16 16:35:00 Danie Domingo [facility] CREATINE KINASE, TOTAL 2020-12-16 16:35:00 Danie Domingo [facility] (CPK) TROPONIN 2020-12-16 16:35:00 Natalee Rudolph [facility] HC COMPLETE BLD COUNT 2020-12-16 14:48:00 Danie Domingo [facility] W/AUTO DIFF COMPREHENSIVE METABOLIC 2020-12-16 14:48:00 Danie Domingo [facility] PANEL LIPASE LEVEL 2020-12-16 14:48:00 Danie Domingo [facility] AMYLASE LEVEL 2020-12-16 14:48:00 Danie Domingo [facility] ESTIMATED GFR 2020-12-16 14:48:00 Danie Domingo Me [facility]ist [U] XRAY HAND MIN 3 VWS 2018-12-19 00:00:00 [facility] LEFT [id number] Physicians [U] XRAY HAND MIN 3 VWS 2018-11-28 00:00:00 [facility] LEFT [id number] Physicians [U] XRAY HAND MIN 3 VWS 2018-11-21 00:00:00 [facility] LEFT [id number] Physicians [U] XRAY HAND MIN 3 VWS 2018-11-10 00:00:00 [facility] LEFT [id number] Physicians Post Op Promise 29 2018-11-04 00:00:00 [facility] Survey Physicians Post Op Promis 29 Survey 2018-11-04 00:00:00 [facility] Physicians Plan of Care Planned Activity Planned Date Details Comments Source Future Scheduled 2021-04-06 INFLUENZA VACCINE [place] [facility] Test 00:00:00 [code = INFLUENZA VACCINE] Future Scheduled 2010 BREAST CANCER [place] Me [facility]ist Test 00:00:00 SCREENING [code = BREAST CANCER SCREENING] Future Scheduled 2010 COLONOSCOPY SCREENING [place] [facility] Test 00:00:00 [code = COLONOSCOPY SCREENING] Future Scheduled 2010 SHINGLES VACCINES [place] [facility] Test 00:00:00 (#1) [code = SHINGLES VACCINES (#1)] Future Scheduled [address] [facility] [place] [facility] thodist Test 00:00:00 malignant neoplasm of cervix (procedure) [code = 973352696] Future Scheduled 1978 Hepatitis C screening [place] [facility] Test 00:00:00 (procedure) [code = 985625690] Future Scheduled 1976 COVID-19 VACCINE (1) Priscila ston [facility] Test 00:00:00 [code = COVID-19 VACCINE (1)] Encounters Start End Encounter Admission Attending Care Care Encounter Source Date/Time Date/Time Type Type Clinicians Facility Department ID 2021-01-13 2021-01-13 Emergency E [id number] [facility] 08:15:00 08:15:00 2020-12-16 2020-12-18 Inpatient [facility] [id number] [place] 00:00:00 00:00:00 AM[address] 2020-11-18 2020-11-18 Emergency Kristi, [facility] [id number] 17:09:00 19:58:00 Lauren Reno [id number] [place] [id number] [place] [id number] 2018-12-22 2018-12-22 JOHN Hernández [facility] [id number] [facility] 09:45:00 09:45:00 joycelyn Saldana [facility] Nickolas RODRIGUEZ Physici M.D. [facility] 2018-12-01 2018-12-01 JOHN Hernández [facility] [id number] [facility] 08:45:00 08:45:00 t; joycelyn SOSA [facility] Nickolas Vieira Physici M.D. ans 2018-11-22 2018-11-22 [facility] [id number] [facility] 10:30:00 10:30:00 t; joycelyn [facility]A [facility] Nickolas Hollins Physici M.D. ans 2018-11-11 2018-11-11 [facility] Orthopedics 51 [id number] [facility] 14:30:00 14:30:00 t; joycelyn [facility] Nickolas Vieira Physici M.D. [facility] 2018-11-10 2018-11-10 [facility] Orthopedics 50 [id number] [facility] 10:45:00 10:45:00 t; joycelyn [facility] Nickolas Hollins Physici M.D. [facility] 2018-11-03 2018-11-03 [facility] Orthopedics 50 [id number] [facility] 09:30:00 09:30:00 t; Gunjan SOSA M.D. [place], Physici M.D. ans Results Test Description Test Time Test Comments Results Result Comments Source ECG 12 lead 2020-12-21 18:12:10 Test Item Value Reference Range Interpretation Comme nts Ventricular rate (test code = 253) 69 Atrial rate (test code = 255) 69 AK interval (test code = 266) 134 QRSD [...] 20:10,-No significant change was found- Renan Cowan [id number] 17:41:04 Test Item Value Reference Range Interpretation Comments Urine culture Mixed kalina Specimen isolate (test <=10-3 col/cc InformationSp ecimen code = 14794-8) Source: Urin eSpecimen Site: Clean cat annabel Ghotra [id number] 16:31:50Hm Interface, Radiology Results 12/17/2020 4:34 PM [...] at the upper limits of normal following cholecystectomy.[facility]- [id number] and approved by residential specialist/fellow: Rony Flor M.D.I, JERMAINE ACEVEDO MD, personally reviewed the images and resident's/fellow's findings and agree with the final report.Renan EmersonXR Sacrum And [id number] 14:41:31Hm Interface, Radiology Results 12/17/2020 2:44 PM CDT EXAMINATION: XR SACRUM AND COCCYXCLINICAL HISTORY: painCOMPARISON: NoneIMPRESSION:7 views were obtained.No fracture. No subluxation. No suspicious osseous abnormalities.Minimal degenerative sclerosis about the sacroiliac joints.[id number] Chest 1 Vw [id number] 17:32:04Hm Interface, Radiology Results 12/16/2020 5:35 PM CDT EXAMINATION: XR CHEST 1 VW PORTABLECLINICAL HISTORY: 60 years Female chest painCOMPARISON: None.IMPRESSION:The cardiomediastinal silhouette is not enlarged The lungs are clear The osseous structures are within normal limits...Renan [facility][U] XRAY HAND MIN 3 VWS LEFT [id number] 08:31:00Images acquired, not reported on this accession number.[facility][U] XRAY HAND MIN 3 VWS LEFT [id number] 15:09:00Images acquired, not reported on this accession number.[facility][U] XRAY HAND MIN 3 VWS LEFT [id number] 2018-11-03 09:32:00Images acquired, not reported on this accession number. [facility]
--- NOTE | 2021-01-19 22:40 | ER ---
Nurse's Notes [facility] Name: Alexander Byrd Age: 60 yrs Sex: Female : 1960 Arrival Date: 01/19/2021 Time: 20:35 Bed Waiting Private MD: Diagnosis: Presentation: 01/19 20:58 Chief complaint: Patient states: I have medications for H. Pylori since Wednesday. But the ca1 medication is not doing good to me. Been vomiting more since taking this medication. Coronavirus screen: Client denies travel out of the [place] in the last 14 days. vomiting. Client presents with at least one sign or symptom that may indicate coronavirus-19. Standard/surgical mask placed on the client. Provider contacted for isolation considerations. Ebola Screen: Patient negative for fever greater than or equal to 101.5 degrees Fahrenheit, and additional compatible Ebola Virus Disease symptoms Patient denies exposure to infectious person. Patient denies travel to an Ebola-affected area in the 21 days before illness onset. No symptoms or risks identified at this time. Initial Sepsis Screen: Does the patient meet any 2 criteria? No. Patient's initial sepsis screen is negative. Does the patient have a suspected source of infection? No. Patient's initial sepsis screen is negative. Risk Assessment: Do you want to hurt yourself or someone else? Patient reports no desire to harm self or others. Onset of symptoms was January 19, 2021. 20:58 Method Of Arrival: Ambulatory ca1 20:58 Acuity: ISAIAS 3 ca1 Historical: - Allergies: 21:01 Advil (lip swelling); ca1 21:01 peanuts; ca1 - PMHx: 21:01 Anxiety; h. pylori; ca1 - PSHx: 21:01 Cholecystectomy; ca1 - Immunization history:: Client reports having NOT received the Covid vaccine. Flu vaccine is not up to date. - Social history:: Smoking status: Patient denies any tobacco usage or history of. Vital Signs: 20:58 BP 172 / 90; Pulse 86; Resp 16 S; Temp 98.3(TE); Pulse Ox 99% on R/A; Weight 63.5 kg ca1 (M); Height 5 ft. 2 in. (157.48 cm) (R); Pain 8/10; 20:58 Body Mass Index 25.60 (63.50 kg, 157.48 cm) ca1 ED Course: 20:35 Patient arrived in ED. am4 21:00 Triage completed. ca1 21:01 Arm band placed on right wrist. ca1 Administered Medications: No medications were administered Outcome: 22:40 Eloped from waiting room, Time discovered patient gone: January 19, 2021 at 22:40 iw 22:40 Patient left the ED. iw Signatures: Riya Escalona RN RN iw Tanya Wilde RN RN ca1 Marguerite Mendoza am4 Corrections: (The following items were deleted from the chart) 21:01 20:58 BP 194 / 95; Pulse 97bpm; Resp 16bpm; Spontaneous; Pulse Ox 99% RA; Temp 98.3F ca1 Temporal; 63.5 kg Measured; Height 5 ft. 2 in. Reported; BMI: 25.6; Pain 8/10; ca1
[2021-01-19 22:54] VITALS: BP 172/90; TEMP 98.3; O2SAT 99
== END 2021-01-19 22:40 | disposition left against medical advice (07) ==
LOC: ER 20:31
DX: Z02.9 Encounter for administrative examinations, unspecified (principal)
CPT/HCPCS: 99281

== ENCOUNTER 2021-02-03 18:18 | Emergency (ER) | payer OTHER ==
--- OUTSIDE RECORDS SUMMARY | 2021-02-03 18:21 | XMS REPORT | Continuity of Care Document ---
:1960 Author Organization [facility] t Address [address] [place] [address] Care Team Providers Name Role Phone Asked, [...] fracture ity of of shaft of shaft [place] of first of first Physic i metacarpal [...] Stop Date Source Natural father Heart disease [place] Taoist Natural mother Arthritis [facility] thodist Natural mother Cancer [facility] Natural mother Depression [facility] thodist Natural mother Hypertension [facility] Social History Social Habit Start Date Stop Date Quantity Comments Source Tobacco use and 2020-12-16 2020-12-16 Never used [facility] ethodist exposure 00:00:00 00:00:00 Alcohol intake 2020-12-16 2020-12-16 Current drinker Javiert on Taoist 00:00:00 00:00:00 of alcohol (finding) Sex [birth year] [facility] ethodist 00:00:00 00:00:00 Smoking Status Start Date Stop Date Source Never smoker [place] Methodis t Medications Ordered Filled Start Stop [...] to 30 days. Lactobacill 2020- No 1{tbl} Q.70116508 Take 1 [facility] 12-18 [id number] tablet by Met cristino [place] 00:00: 23:[address] ulgar 00 :00 (three) (FLORANEX) times a 1 million day for 30 cell tablet days. sucralfate 2020- No 1g Q.25D Take 10 mL [place] (CARAFATE) 12-18 (1 g Methodi 100 mg/mL [...] to 30 days. metroNIDAZO 2020- No 500mg Q.42773887 Take 1 Urr[place]ia LE (FLAGYL) 12-18 [id number] tablet Methodi 500 MG 00:00: 23:59 3D ([address] tablet 00 :00 total) by mouth 3 (three) times a day for 14 days. amoxicillin 2020- No 500mg Q.84326642 Take 1 Renan (AMOXIL) 12-18 [id number] capsule M ethodi 500 MG 00:00: 23:59 [...] blood 2020-12-18 07:34:51 135 mm[Hg] Jason n Taoist pressure Diastolic blood 2020-12-18 07:34:51 70 mm[Hg] Sebastian on Taoist pressure Heart rate 2020-12-18 07:34:51 77 /min Renan Emerson Body temperature 2020-12-18 07:34:51 37 Lynda Javier ton Taoist Oxygen saturation in 2020-12-18 07:34:51 96 /min Renan Emerson Arterial blood by Pulse oximetry Respiratory rate 2020-12-18 05:22:23 18 /min Javier ton Taoist Body height 2020-12-16 20:41:51 157.5 cm Renan Emerson Body weight 2020-12-16 20:41:51 61.916 kg Renan Emerson BMI 2020-12-16 20:41:51 24.97 kg/m2 Renan Emerson Procedures Procedure Date / Time Performing Clinician Source Performed US HEPATIC 2020-12-17 14:26:51 Deanna Singh hodist Natvarlakatelyn ECG 12-LEAD 2020-12-17 13:40:44 Mely Hirsch Anali XR SACRUM AND COCCYX 2020-12-17 13:30:00 Deanna Singh Natvarlal URINE CULTURE 2020-12-17 11:46:00 Natalee Rudolph Ar thodist URINALYSIS SCREEN AND 2020-12-17 11:46:00 Natalee Rudolph MICROSCOPY, WITH REFLEX TO CULTURE TROPONIN 2020-12-17 04:00:00 Natalee Rudolph Ar thodist COMPREHENSIVE METABOLIC 2020-12-17 04:00:00 Natalee Rudolph [place] Taoist PANEL ESTIMATED GFR 2020-12-17 04:00:00 Natalee Rudolph Me thodist RESPIRATORY PATHOGEN 2020-12-16 20:12:00 Danie Domingo on Taoist PANEL WITH COVID-19 ECG 12-LEAD 2020-12-16 20:10:22 Natalee Rudolph Renan Me thodist TROPONIN 2020-12-16 19:28:00 Natalee Rudolph Me thodist XR CHEST 1 VW PORTABLE 2020-12-16 17:00:00 Danie Domingo Taoist B NATRIURETIC PEPTIDE 2020-12-16 16:35:00 Danie Domingo Taoist CREATINE KINASE, TOTAL 2020-12-16 16:35:00 Danie Domingo Taoist (CPK) TROPONIN 2020-12-16 16:35:00 Natalee Rudolph Me thodist HC COMPLETE BLD COUNT 2020-12-16 14:48:00 Danie Domingo Taoist W/AUTO DIFF COMPREHENSIVE METABOLIC 2020-12-16 14:48:00 Danie Domingo Taoist PANEL LIPASE LEVEL 2020-12-16 14:48:00 Danie Domingo Me thodist AMYLASE LEVEL 2020-12-16 14:48:00 Danie Domingo Me thodist ESTIMATED GFR 2020-12-16 14:48:00 Danie Domingo Me thodist [U] XRAY HAND MIN 3 VWS 2018-12-19 00:00:00 [facility] LEFT [id number] Physicians [U] XRAY HAND MIN 3 VWS 2018-11-28 00:00:00 [facility] LEFT [id number] Physicians [U] XRAY HAND MIN 3 VWS 2018-11-21 00:00:00 [facility] LEFT [id number] Physicians [U] XRAY HAND MIN 3 VWS 2018-11-10 00:00:00 [facility] LEFT [id number] Physicians Post Op Promise 29 2018-11-04 00:00:00 [facility] Survey Physicians Post Op Promis 29 Survey 2018-11-04 00:00:00 [facility] Physicians Plan of Care Planned Activity Planned Date Details Comments Source Future Scheduled 2021-04-06 INFLUENZA VACCINE [place] [facility] Test 00:00:00 [code = INFLUENZA VACCINE] Future Scheduled 2010 BREAST CANCER [place] Me thodist Test 00:00:00 SCREENING [code = BREAST CANCER SCREENING] Future Scheduled 2010 COLONOSCOPY SCREENING [place] [facility] Test 00:00:00 [code = COLONOSCOPY SCREENING] Future Scheduled 2010 SHINGLES VACCINES [place] [facility] Test 00:00:00 (#1) [code = SHINGLES VACCINES (#1)] Future Scheduled 1981 Screening for [facility] thodist Test 00:00:00 malignant neoplasm of cervix (procedure) [code = 338866395] Future Scheduled 1978 Hepatitis C screening [place] [facility] Test 00:00:00 (procedure) [code = 290431148] Future Scheduled 1972 COVID-19 VACCINE (1) Priscila ston Taoist Test 00:00:00 [code = COVID-19 VACCINE (1)] Encounters Start End Encounter Admission Attending Care Care Encounter Source Date/Time Date/Time Type Type Clinicians Facility Department ID 2021-01-13 2021-01-13 Emergency E [facility]BL [facility] [id number] [facility] 08:15:00 08:15:00 2020-12-16 2020-12-18 Inpatient [facility] [id number] [place] 00:00:00 00:00:00 AM[address] 2020-11-18 2020-11-18 Emergency Kristi, [facility] [id number] 17:09:00 19:58:00 Lauren [place] [id number] [place] [id number] [place] [id number] 2018-12-22 2018-12-22 JOHN Hernández [facility] 51 [id number] [facility] [place] [facility] 09:45:00 09:45:00 joycelyn Saldana [facility] Nickolas RODRIGUEZ Physici M.D. [facility] 2018-12-01 2018-12-01 JOHN Hernández [facility] 51 [id number] [facility] 08:45:00 08:45:00 t; joycelyn SOSA [facility] Nickolas Vieira Physici M.D. ans 2018-11-22 2018-11-22 [facility] 51 [id number] [facility] 10:30:00 10:30:00 t; joycelyn SOSA [facility] Nickolas Hollins Physici M.D. ans 2018-11-11 2018-11-11 [facility] 51 [id number] [facility] 14:30:00 14:30:00 t; joycelyn SOSA [facility] Nickolas Vieira Physici M.D. [facility] 2018-11-10 2018-11-10 [facility] 50 [id number] [facility] 10:45:00 10:45:00 t; joycelyn S[facility]A [facility] Nickolas Hollins Physici M.D. [facility] 2018-11-03 2018-11-03 [facility] 50 [id number] [facility] 09:30:00 09:30:00 t; Gunjan SOSA M.D. [place], Physici M.D. ans Results Test Description Test Time Test Comments Results Result Comments Source ECG 12 lead 2020-12-21 18:12:10 Test Item Value Reference Range Interpretation Comme nts Ventricular rate (test code = 253) 69 Atrial rate (test code = 255) 69 AL interval (test code = 266) 134 QRSD [...] 20:10,-No significant change was found- Renan Cowan [id number] 17:41:04 Test Item Value Reference Range Interpretation Comments Urine culture Mixed kalina Specimen isolate (test <=10-3 col/cc InformationSp ecimen code = 86480-2) Source: Urin eSpecimen Site: Clean cat annabel Ghotra [id number] 16:31:50Hm Interface, Radiology Results 12/17/2020 4:34 PM [...] at the upper limits of normal following cholecystectomy.[facility]- [id number] and approved by vice president quality improvement/fellow: Rony Flor M.D.I, JERMAINE ACEVEDO MD, personally reviewed the images and resident's/fellow's findings and agree with the final report.Renan EmersonXR Sacrum And [id number] 14:41:31Hm Interface, Radiology Results 12/17/2020 2:44 PM CDT EXAMINATION: XR SACRUM AND COCCYXCLINICAL HISTORY: painCOMPARISON: NoneIMPRESSION:7 views were obtained.No fracture. No subluxation. No suspicious osseous abnormalities.Minimal degenerative sclerosis about the sacroiliac joints.[id number] Chest 1 Vw [id number] 17:32:04Hm Interface, Radiology Results 12/16/2020 5:35 PM CDT EXAMINATION: XR CHEST 1 VW PORTABLECLINICAL HISTORY: 60 years Female chest painCOMPARISON: None.IMPRESSION:The cardiomediastinal silhouette is not enlarged The lungs are clear The osseous structures are within normal limits...Renan Taoist[U] XRAY HAND MIN 3 VWS LEFT [id number] 08:31:00Images acquired, not reported on this accession number.[facility][U] XRAY HAND MIN 3 VWS LEFT [id number] 15:09:00Images acquired, not reported on this accession number.[facility][U] XRAY HAND MIN 3 VWS LEFT [id number] 2018-11-03 09:32:00Images acquired, not reported on this accession number. [facility]
[2021-02-03] MEDS ORDERED: LORazepam 2 MG/ML VIAL ONE (19:46)
[2021-02-03] MEDS ORDERED: FAMOTIDINE 20 MG/2 ML VIAL IV ONE (19:46)
[2021-02-03 19:47] LABS: Protime INR 1.02
[2021-02-03 19:48] LABS: Absolute Lymphocytes (CBC) 2.8 K/uL (0.7-4.9); Basophils % 0.8 % (0-1.3); Hematocrit 33.6 % (36.0-45.0); Lymphocytes % 28.8 % (15.3-44.8); MPV 9.5 fL (7.6-11.3); RBC Red Blood Cell Count 3.79 M/uL (3.86-4.86)
[2021-02-03 19:55] LABS: ALT/SGPT 27 U/L (12-78); AST/SGOT 14 U/L (15-37); Albumin 3.9 g/dL (3.4-5.0); Alkaline Phosphatase 81 U/L (45-117); BUN Blood Urea Nitrogen 14 mg/dL (7-18); Bicarbonate 24 mmol/L (21-32); Bilirubin Direct 0.2 mg/dL (0-0.2); Glucose Level 101 mg/dL (74-106); Lipase 96 U/L (73-393); Magnesium 1.8 mg/dL (1.8-2.4); NT PRO-BNP 43 pg/mL (<125); Sodium Level 143 mmol/L (136-145); Troponin (Emerg Dept Use Only) < 0.02 ng/mL (0.0-0.045)
[2021-02-03 19:57] LABS: Potassium 2.8 mmol/L (3.5-5.1)
--- NOTE | 2021-02-03 20:28 | RAD REPORT ---
EXAM DESCRIPTION: RAD - Chest Single View - 02/03/2021 7:54 pm CLINICAL HISTORY: chest pain, sob COMPARISON: November 2009 TECHNIQUE: AP portable chest image was obtained 02/03/2021 7:54 pm . FINDINGS: Lungs are clear. Heart and vasculature are normal. No measurable pleural effusion and no p neumothorax. No acute bony abnormality seen. No acute aortic findings suspected. IMPRESSION: No acute cardiopulmonary process.
--- NOTE | 2021-02-03 21:03 | RAD REPORT ---
EXAM DESCRIPTION: CT - Chest For Pe Angio - 02/03/2021 8:35 pm CLINICAL HISTORY: chest pain, sob COMPARISON: Chest Single View dated 02/03/2021 TECHNIQUE: Dynamically enhanced 3 mm thick images of the chest were obtained during administration o f approximately 150mL Isovue 370 IV contrast. Coronal and oblique MIP reconstruction images were gene rated and reviewed. Exam utilizes a protocol to evaluate the pulmonary arterial tree. All CT scans are performed using dose optimization technique as appropriate and may include automated exposure control or mA/KV adjustment according to patient size. FINDINGS: No pulmonary emboli are identified. The aorta as imaged shows no acute or suspicious finding. No pericardial thickening or effusion. No infiltrate or mass in the lung parenchyma. No pleural effusion or pleural thickening. No mediastinal or hilar suspicious masses. No chest wall masses or abnormal axillary lymphadenopathy. IMPRESSION: No pulmonary emboli identified. No other significant or suspicious findings.
--- NOTE | 2021-02-03 21:06 | RAD REPORT ---
EXAM DESCRIPTION: CT - Abdomen Pelvis W Contrast - 02/03/2021 8:35 pm CLINICAL HISTORY: abdominal pain, back pain COMPARISON: Abdomen Pelvis W Contrast dated 01/05/2021; Abdomen Pelvis W Contrast dated 12/31/2020 TECHNIQUE: Biphasic, helical CT imaging of the abdomen and pelvis was performed following 100 ml non -ionic IV contrast. No oral contrast administered. All CT scans are performed using dose optimization technique as appropriate and may include automated exposure control or mA/KV adjustment according to patient size. FINDINGS: No suspicious findings in the lung bases. The liver, spleen, and pancreas show no suspicious findings. Gallbladder is absent. No abnormal bilia ry tree dilatation. Symmetric renal function is seen with no hydronephrosis or suspicious renal mass. No obstructing or n onobstructing calculi. Previously detailed perinephric stranding resolved. No active renal parenchyma l process seen peer No pyelonephritis or acute parenchymal process. No bladder abnormalities. No adre nal abnormalities. Uterus and ovaries show no suspicious findings. No dilated bowel loops or bowel wall thickening. Appendix is normal. No free air, free fluid or infla mmatory stranding. No hernia, mass or bulky lymphadenopathy. No suspicious bony findings. IMPRESSION: Contrast enhanced CT abdomen and pelvis showing no acute or emergent finding.
[2021-02-03] MEDS ORDERED: POTASSIUM CL SA 10 MEQ TAB PO ONE (21:38)
--- NOTE | 2021-02-03 21:49 | EDPHYS ---
Physician Documentation [facility] Name: Alexander Byrd Age: 60 yrs Sex: Female : 1960 Arrival Date: 02/03/2021 Time: 18:21 Bed 26 Private MD: ED Physician Yang Love HPI: 02/03 19:00 This 60 yrs old Female presents to ER via Ambulatory with complaints of jmm Breathing Difficulty. 19:00 The patient has shortness of breath at rest. Onset: The symptoms/episode began/occurred jmm gradually, 8 month(s) ago. The patient's shortness of breath has no apparent modifying factors. Associated signs and symptoms: Pertinent positives: chest pain. This is a 60 year old female with a history of anxiety, h pylori that presents to the ED with complaints of worsening shortness of breath, epigastric pain, and lower chest pain. Patient states symptoms initially began approx 8 months ago when diagnosed with h.pylori, patient states she just recently finished her second course of abx on the of this month. . Historical: - Allergies: 18:31 Advil (lip swelling); ll1 18:31 peanuts; ll1 - PMHx: 18:31 Anxiety; h. pylori; ll1 - PSHx: 18:31 Cholecystectomy; ll1 - Immunization history:: Flu vaccine is up to date. - Social history:: Smoking status: Patient denies any tobacco usage or history of. ROS: 19:00 Constitutional: Negative for fever, chills, and weight loss. jmm 19:00 Cardiovascular: Positive for chest pain. 19:00 Respiratory: Positive for shortness of breath. 19:00 Abdomen/GI: Positive for abdominal pain. 19:00 All other systems are negative. Exam: 19:00 Head/Face: atraumatic. Eyes: EOMI, no conjunctival erythema appreciated ENT: Moist jm Mucus Membranes Neck: Trachea midline, Supple 19:00 Cardiovascular: Regular rate and rhythm. No edema appreciated Respiratory: Normal respirations, no respiratory distress appreciated Abdomen/GI: Non distended, soft Back: Normal ROM Skin: General appearance color normal MS/ Extremity: Moves all extremities, no obvious deformities appreciated, no edema noted to the lower extremities Neuro: Awake and alert, normal gait Psych: Behavior is normal, Mood is normal, Patient is cooperative and pleasant 19:00 Constitutional: The patient appears alert, awake, anxious. 19:00 Chest/axilla: Palpation: tenderness, that is mild, of the diaphragm. Vital Signs: 18:32 BP 159 / 89; Pulse 80; Resp 18; Temp 97.3; Pulse Ox 100% ; Weight 56.7 kg; Height 5 ft. ll1 2 in. (157.48 cm); Pain 7/10; 20:30 BP 149 / 84; Pulse 68; Resp 18; Pulse Ox 100% on R/A; zb 18:32 Body Mass Index 22.86 (56.70 kg, 157.48 cm) ll1 MDM: 19:04 Patient medically screened. [facility] 21:48 Data reviewed: vital signs. Data interpreted: Pulse oximetry: on room air is 100 %. pm1 Interpretation: normal. Counseling: I had a detailed discussion with the patient and/or guardian regarding: the historical points, exam findings, and any diagnostic results supporting the discharge/admit diagnosis, lab results, radiology results, the need for outpatient follow up, to return to the emergency department if symptoms worsen or persist or if there are any questions or concerns that arise at home. 21:50 ED course: CREATIVE PERFUMER aware reviewed. pm1 02/03 19:05 Order name: Basic Metabolic Panel [facility] 02/03 19:05 Order name: CBC with Diff; Complete Time: 20:06 [facility] 02/03 19:05 Order name: LFT's; Complete Time: 19:58 [facility] 02/03 19:05 Order name: Magnesium; Complete Time: 19:58 [facility] 02/03 19:05 Order name: NT PRO-BNP; Complete Time: 19:58 [facility] 02/03 19:05 Order name: PT-INR; Complete Time: 20:06 [facility] 02/03 19:05 Order name: Troponin (emerg Dept Use Only); Complete Time: 19:58 [facility] 02/03 19:05 Order name: XRAY Chest (1 view); Complete Time: 20:33 [facility] 02/03 19:05 Order name: D-Dimer; Complete Time: 20:06 [facility] 02/03 19:05 Order name: Lipase; Complete Time: 19:58 [facility] 02/03 19:06 Order name: Basic Metabolic Panel; Complete Time: 19:58 [facility] 02/03 19:58 Order name: CT Chest For PE Angio; Complete Time: 21:13 [facility] 02/03 20:06 Order name: CT Abd/Pelvis - IV Contrast Only; Complete Time: 21:13 [facility] 02/03 19:05 Order name: EKG; Complete Time: 19:07 [facility] 02/03 19:05 Order name: Cardiac monitoring; Complete Time: 20:09 [facility] 02/03 19:05 Order name: EKG - Nurse/Tech; Complete Time: 20:09 [facility] 02/03 19:05 Order name: IV Saline Lock; Complete Time: 19:20 [facility] 02/03 19:05 Order name: Labs collected and sent; Complete Time: 19:20 [facility] 02/03 19:05 Order name: O2 Per Protocol; Complete Time: 19:20 [facility] 02/03 19:05 Order name: O2 Sat Monitoring; Complete Time: 19:20 [facility] Administered Medications: 19:32 Drug: Pepcid (famotidine) 20 mg Route: IVP; Site: right antecubital; zb 20:09 Follow up: Response: No adverse reaction; Marked relief of symptoms zb 19:32 Drug: Ativan (LORazepam) 1 mg Route: IVP; Site: right antecubital; zb 20:09 Follow up: Response: No adverse reaction; Marked relief of symptoms; Anxiety decreased zb 21:00 Drug: K-Dur (potassium chloride) 40 mEq Route: PO; zb 21:51 Follow up: Response: No adverse reaction zb 21:39 CANCELLED (Physician Discretion): Valium (diazepam) 2 mg IVP once pm1 22:23 Drug: Valium (diazepam) 2 mg Route: IVP; Site: right antecubital; zb 22:25 Follow up: Response: Medication administered at discharge. zb Disposition: 02/04 19:08 Co-signature as Attending Physician, Yang Love MD. rn Disposition: 02/03/21 21:48 Discharged to Home. Impression: Chest pain, unspecified. - Condition is Stable. - Discharge Instructions: Nonspecific Chest Pain, Chest Wall Pain. - Prescriptions for Valium 2 mg Oral Tablet - take 1 tablet by ORAL route every 8 hours As needed; 10 tablet. - Medication Reconciliation Form, Thank You Letter, Antibiotic Education, Prescription Opioid Use form. - Follow up: Emergency Department; When: 2 - 3 days; Reason: Recheck today's complaints, Continuance of care, Re-evaluation by your physician. - Problem is new. - Symptoms have improved. Signatures: Dispatcher [employer] EDMS Jacob Burns PA PA jmm Nieto, Roman, MD MD rn Marinas, Patrick, WOODWORKER WOODWORKER pm1 Holly Pritchett RN RN ll1 Nancy Silva RN RN zb Corrections: (The following items were deleted from the chart) 02/03 21:39 21:39 Valium (diazepam) 2 mg IVP once ordered. pm1 pm1 22:36 21:48 02/03/2021 21:48 Discharged to Home. Impression: Chest pain, unspecified. zb Condition is Stable. Forms are Medication Reconciliation Form, Thank You Letter, Antibiotic Education, Prescription Opioid Use. Follow up: Emergency Department; When: 2 - 3 days; Reason: Recheck today's complaints, Continuance of care, Re-evaluation by your physician. Problem is new. Symptoms have improved. pm1
--- NOTE | 2021-02-03 21:49 | ER ---
Nurse's Notes [facility] Name: Alexander Byrd Age: 60 yrs Sex: Female : 1960 Arrival Date: 02/03/2021 Time: 18:21 Bed 26 Private MD: Diagnosis: Chest pain, unspecified Presentation: 02/03 18:32 Chief complaint: Patient states: Main complaint SOB. 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 States she has this happen every day for 6 months. States when she can't swallow, she can't breathe. Anxious. No N/V after eating/drinking. No fever. Has been seen many times for the same. H. Pylori and hiatal hernia found in the past. Coronavirus screen: Client denies travel out of the [place] in the last 14 days. At this time, the client does not indicate any symptoms associated with coronavirus-19. Ebola Screen: Patient denies travel to an Ebola-affected area in the 21 days before illness onset. Initial Sepsis Screen: Does the patient meet any 2 criteria? No. Patient's initial sepsis screen is negative. Does the patient have a suspected source of infection? No. Patient's initial sepsis screen is negative. Risk Assessment: Do you want to hurt yourself or someone else? Patient reports no desire to harm self or others. Onset of symptoms was August 30, 2020. 18:32 Method Of Arrival: Ambulatory ll1 18:32 Acuity: ISAIAS 3 ll1 Triage Assessment: 19:05 Respiratory: zb Historical: - Allergies: 18:31 Advil (lip swelling); ll1 18:31 peanuts; ll1 - PMHx: 18:31 Anxiety; h. pylori; ll1 - PSHx: 18:31 Cholecystectomy; ll1 - Immunization history:: Flu vaccine is up to date. - Social history:: Smoking status: Patient denies any tobacco usage or history of. Screenin:01 Abuse screen: Denies threats or abuse. Denies injuries from another. Nutritional zb screening: No deficits noted. Tuberculosis screening: No symptoms or risk factors identified. Fall Risk None identified. Assessment: 19:01 General: Appears uncomfortable, Behavior is anxious. Pain: Complains of pain in neck zb and abdomen Pain currently is 10 out of 10 on a pain scale. Pain began years ago. Is episodic. Neuro: Level of Consciousness is awake, alert, obeys commands, Oriented to person, place, time, situation. Cardiovascular: Reports palpitations, Heart tones S1 S2 present Capillary refill < 3 seconds in bilateral fingers Patient's skin is warm and dry. Rhythm is regular. Respiratory: Airway is patent Respiratory effort is even, unlabored, Breath sounds are clear. GI: Abdomen is flat, Reports lower abdominal pain, upper abdominal pain, indigestion. Derm: Skin is intact, is healthy with good turgor, Skin is dry, Skin is normal, Skin temperature is warm. Musculoskeletal: Circulation, motion, and sensation intact. Range of motion: intact in all extremities. 20:00 Reassessment: Patient appears in no apparent distress at this time. Patient and/or zb family updated on plan of care and expected duration. Pain level reassessed. Patient is alert, oriented x 3, equal unlabored respirations, skin warm/dry/pink. Patient denies pain at this time. Patient states feeling better. Patient states symptoms have improved. 21:28 Reassessment: Patient appears in no apparent distress at this time. Patient and/or zb family updated on plan of care and expected duration. Pain level reassessed. Patient is alert, oriented x 3, equal unlabored respirations, skin warm/dry/pink. ecp at bedside. 22:26 Reassessment: Patient appears in no apparent distress at this time. Patient and/or zb family updated on plan of care and expected duration. Pain level reassessed. Patient is alert, oriented x 3, equal unlabored respirations, skin warm/dry/pink. Vital Signs: 18:32 BP 159 / 89; Pulse 80; Resp 18; Temp 97.3; Pulse Ox 100% ; Weight 56.7 kg; Height 5 ft. ll1 2 in. (157.48 cm); Pain 7/10; 20:30 BP 149 / 84; Pulse 68; Resp 18; Pulse Ox 100% on R/A; zb 18:32 Body Mass Index 22.86 (56.70 kg, 157.48 cm) ll1 ED Course: 18:21 Patient arrived in ED. ds1 18:27 Arm band placed on. ll1 18:36 Triage completed. ll1 18:47 Nancy Silva, STONE is Primary Nurse. zb 18:57 Jacob Burns PA is PHCP. jmm 18:57 Yang Love MD is Attending Physician. m 19:05 Patient has correct armband on for positive identification. Placed in gown. Bed in low zb position. Call light in reach. Pulse ox on. NIBP on. Door closed. Noise minimized. 19:21 Inserted saline lock: 20 gauge in right antecubital area, using aseptic technique. zb Blood collected. 19:54 XRAY Chest (1 view) In Process Unspecified. EDMS 20:32 PHCP role handed off by Jacob Burns PA pm1 20:32 David Crow NP is PHCP. pm1 20:35 CT Chest For PE Angio In Process Unspecified. EDMS 20:35 CT Abd/Pelvis - IV Contrast Only In Process Unspecified. EDMS 22:25 No provider procedures requiring assistance completed. IV discontinued, intact, zb bleeding controlled, No redness/swelling at site. Pressure dressing applied. Administered Medications: 19:32 Drug: Pepcid (famotidine) 20 mg Route: IVP; Site: right antecubital; zb 20:09 Follow up: Response: No adverse reaction; Marked relief of symptoms zb 19:32 Drug: Ativan (LORazepam) 1 mg Route: IVP; Site: right antecubital; zb 20:09 Follow up: Response: No adverse reaction; Marked relief of symptoms; Anxiety decreased zb 21:00 Drug: K-Dur (potassium chloride) 40 mEq Route: PO; zb 21:51 Follow up: Response: No adverse reaction zb 21:39 CANCELLED (Physician Discretion): Valium (diazepam) 2 mg IVP once pm1 22:23 Drug: Valium (diazepam) 2 mg Route: IVP; Site: right antecubital; zb 22:25 Follow up: Response: Medication administered at discharge. zb Outcome: 21:48 Discharge ordered by . pm1 22:25 Discharged to home via wheelchair, with family. zb 22:25 Condition: stable 22:25 Discharge instructions given to patient, Instructed on discharge instructions, follow up and referral plans. medication usage, Demonstrated understanding of instructions, follow-up care, medications, Prescriptions given X 1. 22:36 Patient left the ED. zb Signatures: Dispatcher [employer] EDMS Jacob Burns PA PA jmm Sanford, Demi ds1 David Crow NP DISPLAY DESIGNER pm1 Holly Pritchett, STONE RN ll1 Nancy Silva RN RN zb Corrections: (The following items were deleted from the chart) 19:00 18:32 Chief complaint: Patient states: Mouth dries up, cant eat or drink without it ll1 feeling like its getting caught in chest. States she has this happen every day for 6 months. States when she can't swallow, she can't breathe. Anxious. No N/V after eating/drinking. ll1 19:21 19:01 Cardiovascular: Heart tones S1 S2 present Capillary refill < 3 seconds in zb bilateral fingers Patient's skin is warm and dry. Rhythm is regular zb 19:21 19:01 GI: Abdomen is flat, zb zb 22:26 22:25 Discharged to home ambulatory, zb zb
[2021-02-03] MEDS ORDERED: DIAZEPAM 10 MG/2 ML INJ SYRINGE ONE (22:32)
[2021-02-03 22:51] VITALS: TEMP 97.3; O2SAT 100
[2021-02-03 22:53] VITALS: BP 149/84
--- NOTE | 2021-02-05 12:02 | EKG ---
Test Date: 2021-02-03 Test Time: 19:36:07 Picker Packer: RODRIGUEZ MEASUREMENT RESULTS: Intervals: Rate: 72 [place]: 130 QRSD: 86 QT: 396 QTc: 433 [place]: P: 76 [place]: 130 QRS: 18 T: 30 INTERPRETIVE STATEMENTS: Normal sinus rhythm Normal ECG Compared to ECG 01/16/2016 01:27:08 No significant changes Electronically Signed On 02-05-21 11:54:33 CDT by Gio Troy
== END 2021-02-03 22:36 | disposition home or self-care (01) ==
LOC: ER 18:18
DX: R07.9 Chest pain, unspecified (principal); F41.9 Anxiety disorder, unspecified; Z88.6 Allergy status to analgesic agent; Z91.010 Allergy to peanuts
CPT/HCPCS: 36415; 71045; 71275; 74177; 80048; 80076; 83690; 83735; 83880; 84484; 85025; 85379; 85610; 93005; 96374; 96375; 99284; J3360; Q9967

== ENCOUNTER 2021-02-05 14:32 | Emergency (ER) | payer OTHER ==
[2021-02-05 15:46] LABS: Absolute Lymphocytes (CBC) 2.4 K/uL (0.7-4.9); Basophils % 0.9 % (0-1.3); Hematocrit 35.4 % (36.0-45.0); Lymphocytes % 26.4 % (15.3-44.8); MPV 9.2 fL (7.6-11.3); RBC Red Blood Cell Count 3.94 M/uL (3.86-4.86)
[2021-02-05] MEDS ORDERED: PANTOPRAZOLE 40 MG INJ ONE (15:58)
[2021-02-05 16:08] LABS: ALT/SGPT 26 U/L (12-78); AST/SGOT 14 U/L (15-37); Albumin 3.9 g/dL (3.4-5.0); Alkaline Phosphatase 76 U/L (45-117); BUN Blood Urea Nitrogen 13 mg/dL (7-18); Bicarbonate 28 mmol/L (21-32); Bilirubin Direct 0.2 mg/dL (0-0.2); Bilirubin Total 0.8 mg/dL (0.2-1.0); Glucose Level 90 mg/dL (74-106); Lipase 115 U/L (73-393); Potassium 3.3 mmol/L (3.5-5.1); Protein, Total 7.7 g/dL (6.4-8.2); Sodium Level 144 mmol/L (136-145); Troponin (Emerg Dept Use Only) < 0.02 ng/mL (0.0-0.045)
[2021-02-05] MEDS ORDERED: ONDANSETRON 4 MG/2 ML VIAL ONE (17:11)
[2021-02-05] MEDS ORDERED: LIDOCAINE VISCOUS 2% SOLN 15 ML UDC ONE (17:11)
[2021-02-05] MEDS ORDERED: MAGNES/ALUMIN/SIMET 30ML UCUP ONE (17:11)
--- NOTE | 2021-02-05 17:42 | RAD REPORT ---
EXAM DESCRIPTION: US - Abdomen Exam Limited - 02/05/2021 5:31 pm CLINICAL HISTORY: ABD PAIN COMPARISON: Abdomen Pelvis W Contrast dated 02/03/2021 FINDINGS: Gallbladder is absent. No mass or abnormal fluid collection in the gallbladder fossa. Comm on bile duct is normal at 5 mm. No duct stone suspected. Liver is normal size at 14-15 cm. No capsule nodularity or focal liver lesion. Liver parenchymal echo genicity normal range. No portal vein abnormality seen. IMPRESSION: Status post cholecystectomy with normal biliary tree. No liver abnormality seen.
--- NOTE | 2021-02-05 17:52 | EDPHYS ---
Physician Documentation [facility] Name: Alexander Byrd Age: 60 yrs Sex: Female : 1960 Arrival Date: 02/05/2021 Time: 14:32 Bed 19 Private MD: ED Physician Shon Isaac HPI: 02/05 19:03 This 60 yrs old Female presents to ER via Ambulatory with complaints of Chest kb Pain, Shortness Of Breath. 19:03 The patient presents with abdominal pain in the upper abdomen. Onset: The kb symptoms/episode began/occurred 6 month(s) ago. The symptoms do not radiate. Associated signs and symptoms: Pertinent positives: nausea. The symptoms are described as constant. Modifying factors: The symptoms are alleviated by nothing, the symptoms are aggravated by nothing. Severity of pain: At its worst the pain was moderate in the emergency department the pain is unchanged. The patient has experienced similar episodes in the past, chronically. The patient has been recently seen by a physician:. Pt reports upper abd pain that started 6 months ago. States she was seen multiple times by doctors and ERs. Finally diagnosed with H.pylori. Has done 2 rounds of antibiotics for H. pylori, but is still having pain. Pt has seen Dr Harrison and Dr Guerrero for these symptoms. Had endoscopy by Dr Harrison and is supposed to have another one by Dr Guerrero, but is waiting for them to set it up. Historical: - Allergies: 14:54 Advil (lip swelling); ph 14:54 peanuts; ph - PMHx: 14:54 Anxiety; h. pylori; ph - PSHx: 14:54 Cholecystectomy; ph - Immunization history:: Client reports having NOT received the Covid vaccine. - Social history:: Smoking status: Patient denies any tobacco usage or history of. ROS: 18:59 Constitutional: Negative for fever, chills, and weight loss. kb 18:59 Abdomen/GI: Positive for abdominal pain, nausea, Negative for vomiting, diarrhea. 18:59 Psych: Positive for anxiety, Negative for depression, drug dependence, alcohol dependence, auditory hallucinations, visual hallucinations, homicidal ideation, insomnia, suicide gesture, suicidal ideation. 18:59 All other systems are negative. Exam: 19:01 Constitutional: This is a well developed, well nourished patient who is awake, alert, kb and in no acute distress. Head/Face: Normocephalic, atraumatic. ENT: Moist Mucous membranes Cardiovascular: Regular rate and rhythm with a normal S1 and S2. No gallops, murmurs, or rubs. No pulse deficits. Respiratory: Respirations even and unlabored. No increased work of breathing, no retractions or nasal flaring. Skin: Warm, dry with normal turgor. Normal color. MS/ Extremity: Pulses equal, no cyanosis. Neurovascular intact. Full, normal range of motion. Neuro: Awake and alert, GCS 15, oriented to person, place, time, and situation. Moves all extremities. Normal gait. 19:01 Abdomen/GI: Inspection: abdomen appears normal, Bowel sounds: normal, Palpation: soft, in all quadrants, mild abdominal tenderness, in the left upper quadrant, moderate abdominal tenderness, in the right upper quadrant. 19:01 Psych: Behavior/mood is cooperative, anxious, Affect is animated, Oriented to person, place, time, Patient has no thoughts/intents to harm self or others. Judgement / Insight is normal. Memory is normal. Delusions/hallucinations are not present. Vital Signs: 14:54 BP 149 / 94; Pulse 81; Resp 18; Temp 97.5; Pulse Ox 99% on R/A; Weight 56.7 kg; Height ph 5 ft. 2 in. (157.48 cm); 16:00 BP 161 / 76; Pulse 75; Resp 17; Pulse Ox 99% on R/A; tw2 16:55 BP 165 / 89; Pulse 76; Resp 16; Pulse Ox 100% on R/A; tw2 18:04 BP 167 / 82; Pulse 82; Resp 16; Pulse Ox 100% on 2 lpm NC; tw2 18:27 BP 168 / 79; Pulse 82; Resp 17; Pulse Ox 99% on R/A; tw2 14:54 Body Mass Index 22.86 (56.70 kg, 157.48 cm) ph MDM: 15:01 Patient medically screened. kb 18:59 Data reviewed: vital signs, nurses notes. Data interpreted: Pulse oximetry: on room air kb is 99 %. Interpretation: normal. Counseling: I had a detailed discussion with the patient and/or guardian regarding: the historical points, exam findings, and any diagnostic results supporting the discharge/admit diagnosis, lab results, radiology results, the need for outpatient follow up, a family practitioner, a hvac journeyman, to return to the emergency department if symptoms worsen or persist or if there are any questions or concerns that arise at home. 02/05 15:23 Order name: Basic Metabolic Panel; Complete Time: 16:10 kb 02/05 15:23 Order name: CBC with Diff; Complete Time: 15:47 kb 02/05 15:23 Order name: Hepatic Function; Complete Time: 16:10 kb 02/05 15:23 Order name: Lipase; Complete Time: 16:10 kb 02/05 15:23 Order name: Troponin (emerg Dept Use Only); Complete Time: 16:10 kb 02/05 16:22 Order name: US Abdomen Limited; Complete Time: 17:46 kb 02/05 15:23 Order name: IV Saline Lock; Complete Time: 15:37 kb 02/05 15:23 Order name: Labs collected and sent; Complete Time: 15:37 kb 02/05 15:23 Order name: EKG; Complete Time: 15:24 kb 02/05 15:23 Order name: EKG - Nurse/Tech; Complete Time: 15:37 kb Administered Medications: 15:40 Drug: ProTONIX (pantoprazole) 40 mg Route: IVP; Site: left antecubital; tw2 16:00 Follow up: Response: No adverse reaction tw2 17:53 Drug: Zofran (Ondansetron) 4 mg {Note: pt agreeable to medication at this time..} tw2 Route: IVP; Site: left antecubital; 18:54 Follow up: Response: No adverse reaction; Nausea is decreased tw2 17:55 Drug: TORadol - (ketorolac) 15 mg Route: IVP; Site: left antecubital; tw2 18:54 Follow up: Response: No adverse reaction; Pain is unchanged, physician notified tw2 17:57 Drug: GI Cocktail without - (Maalox Suspension 30 ml, Lidocaine Liquid 2 % 15 tw2 ml) Route: PO; 18:00 Follow up: Response: Adverse reaction, Physician notified; Adverse reaction, Physician tw2 notified, pt states "i feel like i cant breathe and my throat is dry", pts o2 remains 100%, pt placed on o2 via nc at this time, encouraged to drink water and use lemon swab at this time, pt states "i know my oxygen is fine but i feel like i am allergic to it", provider notified. will continue to monitor. 19:10 Drug: Ativan (LORazepam) 1 mg Route: IVP; Site: left antecubital; tw2 19:24 Follow up: Response: No adverse reaction tw2 Disposition: 02/05/21 17:52 Discharged to Home. Impression: Upper abdominal pain, unspecified. - Condition is Stable. - Discharge Instructions: Abdominal Pain, Adult, [id number]. - Prescriptions for Bentyl 20 mg Oral Tablet - take 1 tablet by ORAL route every 6 hours As needed; 20 tablet. - Medication Reconciliation Form, Thank You Letter, Antibiotic Education, Prescription Opioid Use form. - Follow up: Emergency Department; When: As needed; Reason: Worsening of condition. Follow up: Private Physician; When: 2 - 3 days; Reason: Recheck today's complaints, Continuance of care, Re-evaluation by your physician. Signatures: Dispatcher [employer] EDZuri Alvarez, PATRICK-C MECHANICAL PRESS OPERATOR-Jodie Gutierrez, RN RN Nettie Contreras RN RN tw2 Corrections: (The following items were deleted from the chart) 19:26 17:52 02/05/2021 17:52 Discharged to Home. Impression: Upper abdominal pain, tw2 unspecified. Condition is Stable. Forms are Medication Reconciliation Form, Thank You Letter, Antibiotic Education, Prescription Opioid Use. Follow up: Emergency Department; When: As needed; Reason: Worsening of condition. Follow up: Private Physician; When: 2 - 3 days; Reason: Recheck today's complaints, Continuance of care, Re-evaluation by your physician. kb
--- NOTE | 2021-02-05 17:52 | ER ---
Nurse's Notes [facility] Name: Alexander Byrd Age: 60 yrs Sex: Female : 1960 Arrival Date: 02/05/2021 Time: 14:32 Bed 19 Private MD: Diagnosis: Upper abdominal pain, unspecified Presentation: 02/05 14:54 Chief complaint: Patient states: Reports that she has been seen in ED recently for SOB, ph states that she is still having SOB and is now experiencing chest pain. Reports that pain is in the mid-sternal and L chest area. Also reports nausea, denies vomiting or fever. Coronavirus screen: At this time, unable to obtain information related to travel outside the [place] Ebola Screen: No symptoms or risks identified at this time. Initial Sepsis Screen: Does the patient meet any 2 criteria? No. Patient's initial sepsis screen is negative. Does the patient have a suspected source of infection? No. Patient's initial sepsis screen is negative. Risk Assessment: Do you want to hurt yourself or someone else? Patient reports no desire to harm self or others. Onset of symptoms was February 05, 2021. 14:54 Method Of Arrival: Ambulatory ph 14:54 Acuity: ISAIAS 3 ph Historical: - Allergies: 14:54 Advil (lip swelling); ph 14:54 peanuts; ph - PMHx: 14:54 Anxiety; h. pylori; ph - PSHx: 14:54 Cholecystectomy; ph - Immunization history:: Client reports having NOT received the Covid vaccine. - Social history:: Smoking status: Patient denies any tobacco usage or history of. Screenin:02 Abuse screen: Denies threats or abuse. Nutritional screening: No deficits noted. tw2 Tuberculosis screening: No symptoms or risk factors identified. Fall Risk None identified. Assessment: 15:00 General: Appears slender, well groomed, Behavior is anxious. Pain: Complains of pain in tw2 chest Pain does not radiate. Pain began "i have been on a medicine regimen for h. pylori that just about killed me and i dont know if i still have it but i did 2 rounds of treatment and i do not feel better". Neuro: Level of Consciousness is awake, alert, obeys commands, Oriented to person, place, time, situation. Cardiovascular: Capillary refill < 3 seconds. Respiratory: Airway is patent Respiratory effort is even, unlabored, Respiratory pattern is regular, symmetrical. GI: No signs and/or symptoms were reported involving the gastrointestinal system. Abdomen is flat. : No signs and/or symptoms were reported regarding the genitourinary system. Musculoskeletal: Range of motion: intact in all extremities. 15:11 Reassessment: provider at bedside at this time. tw2 15:57 Reassessment: Patient appears in no apparent distress at this time. No changes from tw2 previously documented assessment. Patient and/or family updated on plan of care and expected duration. Pain level reassessed. Patient is alert, oriented x 3, equal unlabored respirations, skin warm/dry/pink. 16:55 Reassessment: pts spouse at nurses station states "she needs you her mouth is dry and tw2 she cant breathe", spoke with pt, pt states " i am nauseous and i have this burning in my stomach", provider notified, medication order given verbally order, returned to exam room with Zofran 4 mg IV, and GI cocktail, pt refused states "no i dont need that, i think i just need something for my nerves", pts spouse states "can you look to see what they gave her last time because it always helps her", provider notified. no further orders at this time, pt given lemon glycerin swabs at this time for dry mouth as VS remain stable. 17:48 Reassessment: provider at bedside at this time. tw2 18:46 Reassessment: attempted to discharge pt, pt began to cry and state she is "still in tw2 pain, why wont anyone help me", pt educated as to the need for follow up, pt states "not ready to go because im still in pain", provider notified. 18:54 Reassessment: provider at bedside at this time. tw2 19:25 Reassessment: Patient appears in no apparent distress at this time. No changes from tw2 previously documented assessment. Patient and/or family updated on plan of care and expected duration. Pain level reassessed. Patient is alert, oriented x 3, equal unlabored respirations, skin warm/dry/pink. pts spouse at bedside at this time, pt states "thank lonnie for doing all what yaroseanne did, i just wish yall could fix the pain", pt encouraged to follow up with GI drMaryann and to return to ER if symptoms persist. pt and spouse agreeable at this time to discharge. Vital Signs: 14:54 BP 149 / 94; Pulse 81; Resp 18; Temp 97.5; Pulse Ox 99% on R/A; Weight 56.7 kg; Height ph 5 ft. 2 in. (157.48 cm); 16:00 BP 161 / 76; Pulse 75; Resp 17; Pulse Ox 99% on R/A; tw2 16:55 BP 165 / 89; Pulse 76; Resp 16; Pulse Ox 100% on R/A; tw2 18:04 BP 167 / 82; Pulse 82; Resp 16; Pulse Ox 100% on 2 lpm NC; tw2 18:27 BP 168 / 79; Pulse 82; Resp 17; Pulse Ox 99% on R/A; tw2 14:54 Body Mass Index 22.86 (56.70 kg, 157.48 cm) ph ED Course: 14:32 Patient arrived in ED. as 14:54 Arm band placed on Patient placed. ph 14:58 Triage completed. ph 15:01 Zrui Fontana FNP-C is PHCP. kb 15:01 Yang Love MD is Attending Physician. kb 15:01 Shon Isaac MD is Attending Physician. kb 15:01 Nettie Contreras, STONE is Primary Nurse. tw2 15:02 Placed in gown. Bed in low position. Adult w/ patient. color television console monitor on. Pulse ox on. tw2 NIBP on. 15:04 Patient maintains SpO2 saturation greater than 95% on room air. tw2 17:31 US Abdomen Limited In Process Unspecified. EDMS 18:05 Awaiting: re-evaluation of medication admin PRIOR to discharge. tw2 19:24 No provider procedures requiring assistance completed. IV discontinued, intact, tw2 bleeding controlled, No redness/swelling at site. Pressure dressing applied. Administered Medications: 15:40 Drug: ProTONIX (pantoprazole) 40 mg Route: IVP; Site: left antecubital; tw2 16:00 Follow up: Response: No adverse reaction tw2 17:53 Drug: Zofran (Ondansetron) 4 mg {Note: pt agreeable to medication at this time..} tw2 Route: IVP; Site: left antecubital; 18:54 Follow up: Response: No adverse reaction; Nausea is decreased tw2 17:55 Drug: TORadol - (ketorolac) 15 mg Route: IVP; Site: left antecubital; tw2 18:54 Follow up: Response: No adverse reaction; Pain is unchanged, physician notified tw2 17:57 Drug: GI Cocktail without - (Maalox Suspension 30 ml, Lidocaine Liquid 2 % 15 tw2 ml) Route: PO; 18:00 Follow up: Response: Adverse reaction, Physician notified; Adverse reaction, Physician tw2 notified, pt states "i feel like i cant breathe and my throat is dry", pts o2 remains 100%, pt placed on o2 via nc at this time, encouraged to drink water and use lemon swab at this time, pt states "i know my oxygen is fine but i feel like i am allergic to it", provider notified. will continue to monitor. 19:10 Drug: Ativan (LORazepam) 1 mg Route: IVP; Site: left antecubital; tw2 19:24 Follow up: Response: No adverse reaction tw2 Outcome: 17:52 Discharge ordered by MD. krause 19:26 Discharged to home ambulatory, with significant other. tw2 19:26 Condition: stable 19:26 Discharge instructions given to patient, significant other, Instructed on discharge instructions, follow up and referral plans. no drinking with medication, no driving heavy equipment, medication usage, Demonstrated understanding of instructions, follow-up care, medications, Prescriptions given X 1. 19:26 Patient left the ED. tw2 Signatures: Dispatcher [employer] EDZuri Alvarez, DONTE NGUYEN-Azalea Sarah Patricia, RN RN Nettie Contreras RN RN tw2 Corrections: (The following items were deleted from the chart) 17:05 16:55 BP 165 / 89; Pulse 76bpm; Resp 10bpm; Pulse Ox 100% RA; tw2 tw2
[2021-02-05] MEDS ORDERED: KETOROLAC 30 MG/ML INJ ONE (18:13)
[2021-02-05] MEDS ORDERED: LORazepam 2 MG/ML VIAL ONE (19:30)
[2021-02-05 19:41] VITALS: TEMP 97.5
[2021-02-05 19:48] VITALS: BP 168/79; O2SAT 99
--- NOTE | 2021-02-06 07:52 | EKG ---
Test Date: 2021-02-05 Test Time: 15:29:40 Vice Principal: MARIMAR MEASUREMENT RESULTS: Intervals: Rate: 75 [place]: 136 QRSD: 78 QT: 384 QTc: 428 [place]: P: 35 [place]: 136 QRS: 7 T: 25 INTERPRETIVE STATEMENTS: Normal sinus rhythm Possible Anterior infarct, age undetermined Abnormal ECG Compared to ECG 02/03/2021 19:36:07 Myocardial infarct finding now present Electronically Signed On 02-06-21 07:50:33 CDT by Gio Troy
== END 2021-02-05 19:26 | disposition home or self-care (01) ==
LOC: ER 14:32
DX: R10.10 Upper abdominal pain, unspecified (principal); Z88.6 Allergy status to analgesic agent; Z91.010 Allergy to peanuts
CPT/HCPCS: 85025; 80048; 36415; 80076; 84484; 83690; 76705; C9113; J2405; 93005; 96374; 96375; 99285

== ENCOUNTER 2023-03-10 20:40 | Emergency (ER) | payer OTHER, SELFPAY ==
--- OUTSIDE RECORDS SUMMARY | 2023-03-10 20:45 | XMS REPORT | Continuity of Care Document ---
:1960 Author Organization [facility] t Address [address] [facility] [address] [place] [address] Care Team Providers Name Role Phone Asked, No Pcp Primary Care Physician Unavailable Daya Clemens Attending Clinician Unavailable DAYA CLEMENS Attending Clinician Unavailable Agnes Bashir Attending Clinician Unavailable DAT SPEARS Attending Clinician Unavailable STACIE DANG Attending Clinician Unavailable Lauren Brooke Attending Clinician SHEILA RODRIGUEZ M.D. Attending Clinician Unavailable Jayleen, Zisaima Admitting Clinician Unavailable [facility], ZIAD Admitting Clinician Unavailable Physician, No Primary or Family Admitting Clinician UnavailSTACIE Gomes Admitting Clinician Unavailable Payers Payer Name Policy Type Policy Number Effective Date Expiration Date S ource Problems Condition Condition Condition Status Onset Resolution Last Treating Co mments Source Name Details Category Date Date Treatment Clinician Date Gastroesop Gastroesop Disease Active M ethodi hageal hageal 4-13 st reflux reflux 00:00: Hospita disease disease 00 l Chest pain Chest pain Disease Active M ethodi 4-12 st 00:00: Hospita 00 l Pain of Pain of Problem Active [facility] left hand left hand Phys ici ans Laceration Laceration Problem Active U T of flexor of flexor Phys ici muscle, muscle, ans fascia and fascia and tendon of tendon of left index left index finger at finger at wrist and wrist and hand hand level, level, initial initial encounter encounter Extensor Extensor Problem Active UT tendon tendon Physici laceration laceration an s of left of left wrist with wrist with open open wound, wound, initial initial encounter encounter Displaced Displaced Problem Active [facility] fracture fracture Physic i of shaft of shaft ans of first of first metacarpal metacarpal bone, bone, right right hand, hand, initial initial encounter encounter for open for open fracture fracture No known No known Disease Unive rs active active ity of problems problems [facility] Allergies, Adverse Reactions, Alerts Allergy Allergy Status Severity Reaction(s) Onset Inactive Treating Comm ents Source Name Type Date Date Clinician ibuprofe DA Active SV FACIAL 2020-09 [facility] n SWELLING 2-07 [place] 00:00: Health 00 are [place] PEANUTS DA Active SV ANAPHYLAXIS 2020-09 [facility] 2-07 [place] 00:00: Healthc 00 are [place] latex DA Active SV SKIN 2020-09 [facility] IRRITATION 2-02 [place] 00:[facility]: Health[facility] 00 are [place] peanut FA Active SV [facility] 6-04 [place] 00:00: d [facility] ibuprofe DA Active SV [facility] n 6-04 [place] 00:[facility]: d 00 [facility] TRIPLE DA Active SV SHORTNESS OF [facility] MIX BREATH 6-04 [place] 00:00: d 00 [facility] Center peanut FA Active SV ANGIOEDEMA [facility] 6-04 [place] 00:00: d 00 [facility] Center ibuprofe DA Active SV ANGIOEDEMA [facility]CA n 6-04 [place] 00:00: d 00 [facility] Center Ibuprofe Propensi Active Hives Method i n ty to 12 st adverse 00:00: Hospita reaction 00 l s to drug Peanut Propensi Active Rash Univers ty to 3-15 ity of adverse 00:00: [place] reaction 00 Medical s [place] PEANUT DRUG Active Rash Univers INGREDI 3-15 ity of 00:00: [place] 00 [facility] Ibuprofe Propensi Active Swelling Univ ers n ty to 3-27 ity of adverse 00:00: [place] reaction [facility] IBUPROFE DRUG Active Swelling Univer s N INGREDI 3-27 ity of 00:00: [place] 00 [facility] Family History Family Member Diagnosis Comments Start Date Stop Date Source Natural father Heart disease [facility] Natural mother Arthritis [facility] Natural mother Cancer [facility] Natural mother Depression [facility] mother Hypertension [facility] Social History Social Habit Start Date Stop Date Quantity Comments Source History of tobacco Cigarette Smoker [facility] Exposure to Not sure University of SARS-CoV-2 (event) [facility] Gender identity [facility] Alcohol intake 2020-12-16 2020-12-16 Current drinker [facility] 00:00:00 00:00:00 of alcohol Hospital (finding) History of Social 2020-12-16 2020-12-[address] function 00:00:00 00:00:00 Hospital Tobacco use and 2020-12-16 2020-12-16 Smokeless [facility] exposure 00:00:00 00:00:00 tobacco non-user Hospital Sex Assigned At [birth year] [facility] 00:00:00 00:00:00 Hospital Smoking Status Start Date Stop Date Source Never smoker [facility] Medications Ordered Filled Start Stop Current Ordering Indication Dosage Frequency Signature Comments Components Source Medication Medication Date Date Medication? Clinician (SIG) Name Name metroNIDAZO Yes 500mg Q.5D Take 500 M ethodi LE (FLAGYL) 4-[address] 500 MG 00:00: mouth 2 Hospita tablet 00 (two) l times a day. iohexol 2020- No [id number] 80mL 80 mL, Un jorge (OMNIPAQUE 15 03-15 Intravenou it y of 350 BULK-75 23:45: 23:33 s, ONCE, 1 [place] mL) 00 :00 dose, Mon Medical injection 11/18/20 at Bran ch 80 mL 1845, Routine NaCl 0.9% 2020- No 1000mL at 999 Uni vers (NS) bolus 3-15 03-16 mL/hr, ity of infusion 23:30: 00:53 1,000 mL, [place] as 1,000 mL 00 :00 IV Medical Infusion, Branch ONCE, 1 dose, 11/18/20 at 1830, STAT ondansetron Yes [id number] 4mg Take 1 Univers 4 mg 3-15 tablet by ity of disintegrat 00:00: mouth [place] ing tablet 00 every 8 Medica l (eight) Branch hours as needed for Nausea and Vomiting (N/V). omeprazole Yes [id number] 40mg Take 1 U nivers 40 mg 3-15 capsule by ity of capsule 00:00: mouth [place] 00 daily. Medical Branch Nitrofurant 2020- No [id number] 100mg Take 1 Univers oin&Nit. 3-15 -21 capsule by ity of Macrocryst 00:00: 04:59 mouth 2 [place] as (MACROBID) 00 :00 (two) Medical 100 mg times Branch capsule daily for 5 days. Acetaminoph Acetaminoph Yes SHEILA TAKE 1 UT en-Codeine en-Codeine 2-28 MANSOUR TABLET Physici #3 300-30 #3 300-30 00:00: M.D. EVERY 4 TO ans MG Oral MG Oral 00 6 HOURS Tablet Tablet NEEDED FOR PAIN. LORazepam Yes .5mg Take 1 Tab Un jorge (ATIVAN) 3-27 by mouth 3 ity o f 0.5 mg 00:00: (three) [place] tablet 00 times Medical daily as Branch needed for Anxiety. famotidine Yes 20mg Take 1 Tab U nivers (PEPCID) 20 3-27 by mouth 2 it y of mg tablet 00:00: (two) [place] 00 times Medical daily. Branch Walker Yes Use as Univers (ELIZABETH 3-27 directed. ity of ROLLING 00:00: WBAT on Lauren WALKER) 00 RLE Medical Misc Branch Vital Signs Vital Name Observation Time Observation Value Comments Source Systolic blood 2020-11-19 00:00:00 148 mm[Hg] Univer sity of pressure [facility] Diastolic blood 2020-11-19 00:00:00 94 mm[Hg] Unive rsity of pressure [facility] Heart rate 2020-11-19 00:00:00 74 /min Universi ty of [facility] Respiratory rate 2020-11-19 00:00:00 16 /min Univ ersity of [facility] Oxygen saturation in 2020-11-19 00:00:00 95 /min University of Arterial blood by [place] Medi tamela Pulse oximetry Branch Body temperature 2020-11-18 22:08:00 37.44 Lynda Univ ersity of [facility] Body weight 2020-11-18 22:08:00 59.875 kg Universi ty of [facility] BMI 2020-11-18 22:08:00 24.14 kg/m2 Universi ty [facility] Systolic blood 2020-11-19 00:00:00 148 mm[Hg] Univer sity of pressure [facility] Diastolic blood 2020-11-19 00:00:00 94 mm[Hg] Unive rsity of [facility] Heart rate 2020-11-19 00:00:00 74 /min Universi ty of [facility] Respiratory rate 2020-11-19 00:00:00 16 /min Univ ersity of [facility] Oxygen saturation in 2020-11-19 00:00:00 95 /min University of Arterial blood by [facility] Pulse oximetry [place] Body temperature 2020-11-18 22:08:00 37.44 Lynda Univ ersity [facility] Body weight 2020-11-18 22:08:00 59.875 kg Universi ty [facility] BMI 2020-11-18 22:08:00 24.14 kg/m2 Universi ty [facility] Procedures Procedure Date / Time Performed Performing Clinician Harjit e [id number] 2021-08-12 00:00:00 AMRZI [facility] [id number] 2021-08-12 00:00:[facility]BD[facility] PELVIS W 2020-11-18 23:35:45 Lauren Berry Universi ty of [facility] Branch LIPASE 2020-11-18 22:42:00 Lauren Berry [place] o f [facility] HEPATIC FUNCTION PANEL 2020-11-18 22:42:00 Lauren Berry [facility] ([id number]) Medical Branch (ALB,T.PRO,BILI T,BU/BC,ALT,AST,ALK PHOS) BASIC METABOLIC PANEL 2020-11-18 22:42:[address] [facility] (NA, K, CL, CO2, Medical Branch GLUCOSE, BUN, CREATININE, CA) CBC WITH DIFF 2020-11-18 22:42:00 Lauren Berry [facility] URINALYSIS 2020-11-18 22:42:00 Lauren Berry [facility] COVID-19 (ID NOW RAPID 2020-11-18 22:42:00 Lauren Berry [facility] TESTING) Medical Branch NOTICE OF PRIVACY 2020-11-18 21:56:11 Doctor Unassigned, No [facility] PRACTICES Name Medical Branch [U] XRAY HAND MIN 3 2018-12-19 00:00:00 [facility] VWS LEFT [id number] [U] XRAY HAND MIN 3 2018-11-28 00:00:00 [facility] VWS LEFT [id number] [U] XRAY HAND MIN 3 2018-11-21 00:00:00 [facility]i c[facility] VWS LEFT [id number] [U] XRAY HAND MIN 3 2018-11-10 00:00:00 [facility] Physi cians VWS LEFT [id number] Post Op Promise 2018-11-04 00:00:00 UT Physic ians Survey Post Op Promis 2018-11-04 00:00:00 [facility] Physici ans Survey Plan of Care Planned Activity Planned Date Details Comments Source Future Scheduled 2023-02-21 [facility] Test 23:37:34 malignant neoplasm of colon (procedure) [code = 266200584] Future Scheduled 2023-02-21 [facility] Test 23:37:34 malignant neoplasm of colon (procedure) [code = 597811032] Future Scheduled 2023-02-21 [facility] Test 23:37:34 malignant neoplasm of colon (procedure) [code = 532246817] Future Scheduled 2023-02-21 COVID-19 VACCINE [facility] Test 23:37:34 (#1) [code = COVID-19 VACCINE (#1)] Future Scheduled 2023-02-21 Hepatitis C [facility] Test 23:37:34 screening (procedure) [code = 261295787] Future Scheduled 2023-02-21 [facility] Test 23:37:34 malignant neoplasm of cervix (procedure) [code = 535907385] Future Scheduled 2023-02-21 BREAST CANCER [facility] Test 23:37:34 SCREENING [code = BREAST CANCER SCREENING] Future Scheduled 2023-02-21 [facility] Test 23:37:34 malignant neoplasm of colon (procedure) [code = 467729157] Future Scheduled 2023-02-21 [facility] Test 23:37:34 malignant neoplasm of colon (procedure) [code = 937343507] Future Scheduled 2023-02-21 SHINGLES VACCINES [facility] Test 23:37:34 (1 of 2) [code = SHINGLES VACCINES (1 of 2)] Future Scheduled 2023-02-21 INFLUENZA VACCINE [facility] Test 23:37:34 [code = INFLUENZA VACCINE] Encounters Start End Encounter Admission Attending Care Care Encounter Source Date/Time Date/Time Type Type Clinicians Facility Department ID 2021-08-12 2021-08-17 Inpatient [facility] [id number] [facility] 08:58:00 14:46:00 50 [facility] 2021-07-16 2021-07-16 Outpatient DAYA MACK [facility] JEWELS [id number] [facility] 12:00:00 12:00:00 04 [facility] 2021-03-03 2021-03-03 Outpatient Agnes Miranda [facility] ENDO LA0 [id number] [facility] 07:10:00 07:10:00 80 [facility] 2021-02-07 2021-02-07 Inpatient Agnes Miranda H[facility] RADI LA00 [id number] [facility] 09:07:00 09:07:00 31 [facility] 2021-01-13 2021-01-13 Emergency DAT [address]ARCIA [id number]ER 08:15:00 13:30:00 2020-12-16 2020-12-18 Inpatient AL[facility] [id number] [place] [address] 00:00:00 00:00:[address] 2020-11-18 2020-11-18 Emergency Kristi, [facility] [id number] [facility] 17:09:00 19:58:00 Lauren [place] [id number] i ty of [place] [id number] [facility] [id number] [facility] 08 Branch 2020-11-18 2020-11-18 Emergency Kristi, [facility] [id number] 17:09:00 19:58:00 Katye R [place] [id number] [place] [id number] [facility] 2020-11-18 2020-11-18 Emergency X [facility] ERT [id number] Univers 16:56:00 [facility]-12-22 2018-12-22 Jina RODRIGUEZ [facility] Orthopedics [id number] [place] 09:45:00 09:45:00 t; joycelyn [facility] Nickolas Cat i, M.D. 2018-12-01 2018-12-01 Jina RODRIGUEZ [facility] Orthopedics 51 [id number] [place] 08:45:00 08:45:00 t; joycelyn [facility] Nickolas Cat i, M.D. 2018-11-22 2018-11-22 Jina RODRIGUEZ [facility] Orthopedics 51 [id number] [place] 10:30:00 10:30:00 t; joycelyn [facility] Nickolas Cat i, M.D. 2018-11-11 2018-11-11 Jina RODRIGUEZ [facility] Orthopedics 51 [id number] [place] 14:30:00 14:30:00 t; joycelyn [facility] Nickolas Cat i, M.D. 2018-11-10 2018-11-10 Jina RODRIGUEZ [facility] Orthopedics 50 [id number] [place] 10:45:00 10:45:00 t; joycelyn [facility] Nickolas Cat i, M.D. 2018-11-03 2018-11-03 Appointmen MICHAEL [facility] Orthopedics 50 [id number] [place] 09:30:00 09:30:00 Amandeep Saldana i, M.D. ans ASHTON, M.D. Results Test Description Test Time Test Comments Results Result Comments Source CBC W/AUTO DIFF 2021-08-17 06:11:00 Test Item Value Reference Range Interpretation Comme nts WHITE BLOOD CELL (test code = WBC) 8.3 10 3/uL 4.5-11.0 N RED BLOOD CELL (test code = RBC) 2.44 10 6/uL 3.50-5.50 L HEMOGLOBIN (test code = HGB) 7.5 g/dL 12.0-16.0 L HEMATOCRIT (test code = HCT) 22.8 % 37.0-55.0 L MEAN CELL VOLUME (test code = MCV) 93 fL 81-102 N MEAN CELL HGB (test code = MCH) 30.7 pg 26.0-34.0 N MEAN CELL HGB CONCENTRATION (test code = MCHC) 32.9 g/dL 31.0-37 .0 N RED CELL DISTRIBUTION WIDTH (test code = RDW) 12.1 % 11.6-14. 4 N PLATELET COUNT (test code = PLT) 245 10 3/uL 150-400 N MEAN PLATELET VOLUME (test code = MPV) 10.4 fL 9.0-12.6 N NEUTROPHIL % (test code = NT%) 58.5 % 33.0-76.0 N IMMATURE GRANULOCYTE % (test code = IG%) 0.5 % 0.0-1.0 N LYMPHOCYTE % (test code = LY%) 30.2 % 14.0-56.4 N MONOCYTE % (test code = MO%) 6.3 % 0.0-12.9 N EOSINOPHIL % (test code = EO%) 4.0 % 0.0-7.0 N BASOPHIL % (test code = BA%) 0.5 % 0-2.0 N NUCLEATED RBC % (test code = NRBC%) 0.2 % 0-0.2 N NEUTROPHIL # (test code = NT#) 4.85 10 3/uL 1.5-7.0 N IMMATURE GRANULOCYTE # (test code = IG#) 0.040 x10 3/uL 0.000-0.100 N LYMPHOCYTE # (test code = LY#) 2.50 10 3/uL 1.50-4.00 N MONOCYTE # (test code = MO#) 0.52 10 3/uL 0.20-0.80 N EOSINOPHIL # (test code = EO#) 0.33 10 3/uL 0.0-0.5 N BASOPHIL # (test code = BA#) 0.04 10 3/uL 0.0-0.1 N URINALYSIS [id number] 15:34:00 Test Item Value Reference Range Interpretation Comments UA COLOR (test code = COLU) STRAW YELLOW UA APPEARANCE (test code = CLEAR CLEAR APPU) UA GLUCOSE DIPSTICK (test code NEGATIVE NEGATIVE = DGLUU) UA BILIRUBIN DIPSTICK (test NEGATIVE NEGATIVE code = BILU) UA KETONE DIPSTICK (test code TRACE NEGATIVE A = KETU) UA SPECIFIC GRAVITY (test code 1.004 1.005-1.025 L = SGU) UA BLOOD DIPSTICK (test code = 1+ NEGATIVE A ARCHANA) UA PH DIPSTICK (test code = 7.0 5.0-8.0 CALEB) UA PROTEIN DIPSTICK (test code NEGATIVE NEGATIVE = PROU) UA UROBILINOGEN DIPSTICK (test NEGATIVE EU/dL 0.1-0.2 code = URO) UA NITRITE DIPSTICK (test code NEGATIVE NEGATIVE = MELIA) UA LEUKOCYTE ESTERASE DIPSTICK NEGATIVE NEGATIVE (test code = LEUU) UA MICROSCOPIC NEEDED? (test YES NO A code = UAMICRO) UA WBC (test code = WBCU) NONE SEEN /hpf 0-3 UA RBC (test code = RBCU) 0-2 /hpf 0-3 UA BACTERIA (test code = BACU) NONE SEEN /HPF NEGATIVE UA SQUAMOUS CELLS (test code = None seen /HPF FEW SQU) BASIC METABOLIC [id number] 06:16:00 Test Item Value Reference Range Interpretation Comments SODIUM (test code 142 mmol/L 135-145 N = NA) POTASSIUM (test 3.6 mmol/L 3.5-5.1 N code = K) CHLORIDE (test 105 mmol/L 98-107 N code = CL) CARBON DIOXIDE 29 mmol/L 21-32 N (test code = CO2) ANION GAP (test 11.6 2.0-16.0 N code = GAP) GLUCOSE (test code 98 mg/dL 65-99 N = GLU) BLOOD UREA 9 mg/dL 4-23 N NITROGEN (test code = BUN) GLOMERULAR >=60 max >60 The estimated FILTRATION RATE estimate ml/min glomerula r (test code = GFR) filtration rate is computed usingpatient ra ce, age (>18), sex, and serum creatinin e. If anyof the neede d data elements a re missing the Laboratory ryley ot compute an estimation of t he glomerular filtration rate . CREATININE (test 0.7 mg/dL 0.6-1.5 N code = CREAT) BUN/CREATININE 12.9 12.0-20.0 N RATIO (test code = BUN/CREA) CALCIUM (test code 8.7 mg/dL 8.5-10.1 N = CA) HGB [id number] 06:02:00 Test Item Value Reference Range Interpretation Comments HEMOGLOBIN (test code = HGB) 7.6 g/dL 12.0-16.0 L HEMATOCRIT (test code = HCT) 23.2 % 37.0-55.0 L [id number] 16:38:00 Test Item Value Reference Range Interpretation Comments SURGICAL (test code = SR) --------RUN DATE: 08/19/21 [facility] LAB *LIVE* PAGE 1 RUN TIME: 937 Specimen Inquiry RUN USER: INTERFACE --------PATIENT: STANFORDRICHMOND LOC: MS4 #: [id number] AGE/SX: 60/F ROOM: [place] [address] RE08/12/21REG DR: Daya Clemens MD : 60 BED: 1 DIS: 08/17/21 STATUS: DIS IN TLOC: -------- SPEC #: [id number] RECD: 08/13/21 STATUS: EVER REEssence #: [id number] CAMRYN: 08/12/21-[address]: Daya Clemens MD ENTERED: 08/13/21 SP TYPE: SURGICAL OTHR DR: ORDERED: [id number], [id number], [id number]/, [id number], ANATOMIC SPEC TISSUES: STOMACH SUBTOTAL / TOTAL RESECTION NOT TUMOR/SLEEVE - PARTIAL STOMACH FOR GASTRIC MASS ADDENDUM FINDINGS Addendum #1 Entered: 08/19/21 Properly controlled immunostain for NSE performed by [employer] on Block A1 andinterpreted at [facility] shows non-specific staining in the lesionalcells. The diagnosis remains unchanged. DISCLAIMERThese immunohistochemical studies were developed and preference characteristics determinedby [facility] Laboratory, Immunohistochemical Section. It may nothave been cleared or approved by the U.S. Food and Drug Administration. The FDA hasdetermined that such clearance or approval is not necessary. This test is used for clinicalpurposes. It should not be regarded as investigational or for research. This laboratory iscertified under the Clinical Laboratory Improvement Amendment of 1988 (CLIA) as qualifiedto perform high complexity clinical laboratory testing. 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 There is a stapled margin that measures 9.5 cm running from both ends of thespecimen. There is a nodule located on the serosal surface that measures 1.8 x 1.3 cm. The specimen is opened longitudinally to reveal regular borden rugal folds with a very slightamount of brown soft material. The specimen is sectioned through the nodule to reveal awhite, bloody, homogeneous surface that is firm. The nodule is located 0.5 cm away fromthe resection margin. The specimen is submitted representatively across cassettes A1-A4. JA/dm MICROSCOPIC DESCRIPTION Unless gross only, the diagnosis is based on microscopic examination. Properly controlled Diff Quik stain performed at [facility] on block A1 is negativefor organisms supporting the diagnosis. Properly controlled immunostains were performed on blocks A1 by [employer] andinterpreted at [facility] to further characterize the lesional cells with thefollowing results: Helicobacter pylori: negative for organisms supporting the diagnosis Muscle specific actin: highlights the lesional cells Smooth muscle actin: highlights the lesional cells Calponin: highlights the lesional cells Desmin: negative in the lesional cells Synaptophysin: focally positive in the lesional cells Ki-67: highlights less than 3% of the lesional cells CD34: highlights the blood vessels but is negative in the lesional cells Chromogranin: negative in the lesional cells CD117: negative in the lesional cells S100: negative in the lesional cells Cytokeratin AE1/AE3: negative in the lesional cells The overall staining pattern supports the diagnosis. This immunohistochemical test was developed and its preference characteristics determined CONTINUED ON NEXT PAGE --------RUN DATE: 08/19/21 [facility] LAB *LIVE* PAGE 3 RUN TIME: 937 Specimen Inquiry RUN USER: INTERFACE --------SPEC #: [id number] PATIENT: RICHMOND STANFORD #[id number] (Continued) MICROSCOPIC DESCRIPTION (Continued) by [employer] and interpreted at [facility] HistologyLaboratory, Immunohistochemical Section. It may not have been cleared or approved by theU.S. Food and Drug Administration. The FDA has determined that such clearance or approvalis not necessary. This test is used for clinical purposes. It should not be regarded asinvestigational or for research. This laboratory is certified under the ClinicalLaboratory Improvement Amendment of 1988 (CLIA) as qualified to perform high complexityclinical laboratory testing. CLINICAL INFORMATION Gastric mass Signed ____ Lucas León MD 08/15/21 1638 -------- END OF REPORT CBC W/AUTO [id number] 08:01:00 Test Item Value Reference Range Interpretation Comments WHITE BLOOD CELL (test code = 9.9 10 3/uL 4.5-11.0 N WBC) RED BLOOD CELL (test code = 2.54 10 6/uL 3.50-5.50 L RBC) HEMOGLOBIN (test code = HGB) 7.7 g/dL 12.0-16.0 L HEMATOCRIT (test code = HCT) 24.1 % 37.0-55.0 L MEAN CELL VOLUME (test code = 95 fL 81-102 N MCV) MEAN CELL HGB (test code = 30.3 pg 26.0-34.0 N MCH) MEAN CELL HGB CONCENTRATION 32.0 g/dL 31.0-37.0 N (test code = MCHC) RED CELL DISTRIBUTION WIDTH 12.2 % 11.6-14.4 N (test code = RDW) PLATELET COUNT (test code = 235 10 3/uL 150-400 N PLT) MEAN PLATELET VOLUME (test 10.3 fL 9.0-12.6 N code = MPV) NEUTROPHIL % (test code = NT%) 51.7 % 33.0-76.0 N IMMATURE GRANULOCYTE % (test 0.5 % 0.0-1.0 N code = IG%) LYMPHOCYTE % (test code = LY%) 40.5 % 14.0-56.4 N MONOCYTE % (test code = MO%) 4.5 % 0.0-12.9 N EOSINOPHIL % (test code = EO%) 2.3 % 0.0-7.0 N BASOPHIL % (test code = BA%) 0.5 % 0-2.0 N NUCLEATED RBC % (test code = 0.0 % 0-0.2 N NRBC%) NEUTROPHIL # (test code = NT#) 5.10 10 3/uL 1.5-7.0 N IMMATURE GRANULOCYTE # (test 0.050 x10 3/uL 0.000-0.100 N code = IG#) LYMPHOCYTE # (test code = LY#) 3.99 10 3/uL 1.50-4.00 N MONOCYTE # (test code = MO#) 0.44 10 3/uL 0.20-0.80 N EOSINOPHIL # (test code = EO#) 0.23 10 3/uL 0.0-0.5 N BASOPHIL # (test code = BA#) 0.05 10 3/uL 0.0-0.1 N HGB [id number] 10:44:00 Test Item Value Reference Range Interpretation Comments HEMOGLOBIN (test code = HGB) 7.5 g/dL 12.0-16.0 L HEMATOCRIT (test code = HCT) 24.2 % 37.0-55.0 L CBC W/AUTO [id number] 02:21:00 Test Item Value Reference Range Interpretation Comments WHITE BLOOD CELL (test code = 10.0 10 3/uL 4.5-11.0 N WBC) RED BLOOD CELL (test code = 2.42 10 6/uL 3.50-5.50 L RBC) HEMOGLOBIN (test code = HGB) 7.4 g/dL 12.0-16.0 L HEMATOCRIT (test code = HCT) 23.2 % 37.0-55.0 L MEAN CELL VOLUME (test code = 96 fL 81-102 N MCV) MEAN CELL HGB (test code = 30.6 pg 26.0-34.0 N MCH) MEAN CELL HGB CONCENTRATION 31.9 g/dL 31.0-37.0 N (test code = MCHC) RED CELL DISTRIBUTION WIDTH 12.9 % 11.6-14.4 N (test code = RDW) PLATELET COUNT (test code = 212 10 3/uL 150-400 N PLT) MEAN PLATELET VOLUME (test 10.8 fL 9.0-12.6 N code = MPV) NEUTROPHIL % (test code = NT%) 54.5 % 33.0-76.0 N IMMATURE GRANULOCYTE % (test 0.2 % 0.0-1.0 N code = IG%) LYMPHOCYTE % (test code = LY%) 36.6 % 14.0-56.4 N MONOCYTE % (test code = MO%) 6.9 % 0.0-12.9 N EOSINOPHIL % (test code = EO%) 1.4 % 0.0-7.0 N BASOPHIL % (test code = BA%) 0.4 % 0-2.0 N NUCLEATED RBC % (test code = 0.0 % 0-0.2 N NRBC%) NEUTROPHIL # (test code = NT#) 5.43 10 3/uL 1.5-7.0 N IMMATURE GRANULOCYTE # (test 0.020 x10 3/uL 0.000-0.100 N code = IG#) LYMPHOCYTE # (test code = LY#) 3.65 10 3/uL 1.50-4.00 N MONOCYTE # (test code = MO#) 0.69 10 3/uL 0.20-0.80 N EOSINOPHIL # (test code = EO#) 0.14 10 3/uL 0.0-0.5 N BASOPHIL # (test code = BA#) 0.04 10 3/uL 0.0-0.1 N BASIC METABOLIC [id number] 02:15:00 Test Item Value Reference Range Interpretation Comments SODIUM (test code 146 mmol/L 135-145 H = NA) POTASSIUM (test 3.7 mmol/L 3.5-5.1 N code = K) CHLORIDE (test 115 mmol/L 98-107 H code = CL) CARBON DIOXIDE 24 mmol/L 21-32 N (test code = CO2) ANION GAP (test 10.7 2.0-16.0 N code = GAP) GLUCOSE (test code 103 mg/dL 65-99 H = GLU) BLOOD UREA 22 mg/dL 4-23 N NITROGEN (test code = BUN) GLOMERULAR >=60 max >60 The estimated FILTRATION RATE estimate ml/min glomerula r (test code = GFR) filtration rate is computed usingpatient ra ce, age (>18), sex, and serum creatinin e. If anyof the neede d data elements a re missing the Laboratory ryley ot compute an estimation of t he glomerular filtration rate . CREATININE (test 0.9 mg/dL 0.6-1.5 N code = CREAT) BUN/CREATININE 24.4 12.0-20.0 H RATIO (test code = BUN/CREA) CALCIUM (test code 8.5 mg/dL 8.5-10.1 N = CA) HGB [id number] 18:06:00 Test Item Value Reference Range Interpretation Comments HEMOGLOBIN (test code = HGB) 8.3 g/dL 12.0-16.0 L HEMATOCRIT (test code = HCT) 26.4 % 37.0-55.0 L HGB [id number] 11:23:00 Test Item Value Reference Range Interpretation Comments HEMOGLOBIN (test code = HGB) 8.8 g/dL 12.0-16.0 L HEMATOCRIT (test code = HCT) 27.4 % 37.0-55.0 L BASIC METABOLIC [id number] 08:44:00 Test Item Value Reference Range Interpretation Comments SODIUM (test code = 143 mmol/L 135-145 N NA) POTASSIUM (test code 4.5 mmol/L 3.5-5.1 N = K) CHLORIDE (test code = 112 mmol/L 98-107 H CL) CARBON DIOXIDE (test 22 mmol/L 21-32 N code = CO2) ANION GAP (test code 13.5 2.0-16.0 N = GAP) GLUCOSE (test code = 133 mg/dL 65-99 H GLU) BLOOD UREA NITROGEN 23 mg/dL 4-23 N (test code = BUN) GLOMERULAR FILTRATION 54 ml/min >60 L The es timated RATE (test code = glomerular filtration GFR) rate is compute d usingpatient ra ce, age (>18), sex, and serum creatinine. If anyof the needed data elements are mi ssing the Laboratory cannot compute an ajzmyn mation of the glomerul ar filtration rate . CREATININE (test code 1.1 mg/dL 0.6-1.5 N = CREAT) BUN/CREATININE RATIO 20.9 12.0-20.0 H (test code = BUN/CREA) CALCIUM (test code = 8.0 mg/dL 8.5-10.1 L CA) CBC W/AUTO [id number] 07:14:00 Test Item Value Reference Range Interpretation Comments WHITE BLOOD CELL (test code = 11.6 10 3/uL 4.5-11.0 H WBC) RED BLOOD CELL (test code = 3.06 10 6/uL 3.50-5.50 L RBC) HEMOGLOBIN (test code = HGB) 9.1 g/dL 12.0-16.0 L HEMATOCRIT (test code = HCT) 29.4 % 37.0-55.0 L MEAN CELL VOLUME (test code = 96 fL 81-102 N MCV) MEAN CELL HGB (test code = 29.7 pg 26.0-34.0 N MCH) MEAN CELL HGB CONCENTRATION 31.0 g/dL 31.0-37.0 N (test code = MCHC) RED CELL DISTRIBUTION WIDTH 12.7 % 11.6-14.4 N (test code = RDW) PLATELET COUNT (test code = 287 10 3/uL 150-400 N PLT) MEAN PLATELET VOLUME (test 10.9 fL 9.0-12.6 N code = MPV) NEUTROPHIL % (test code = NT%) 66.5 % 33.0-76.0 N IMMATURE GRANULOCYTE % (test 0.3 % 0.0-1.0 N code = IG%) LYMPHOCYTE % (test code = LY%) 26.9 % 14.0-56.4 N MONOCYTE % (test code = MO%) 5.6 % 0.0-12.9 N EOSINOPHIL % (test code = EO%) 0.3 % 0.0-7.0 N BASOPHIL % (test code = BA%) 0.4 % 0-2.0 N NUCLEATED RBC % (test code = 0.0 % 0-0.2 N NRBC%) NEUTROPHIL # (test code = NT#) 7.72 10 3/uL 1.5-7.0 H IMMATURE GRANULOCYTE # (test 0.030 x10 3/uL 0.000-0.100 N code = IG#) LYMPHOCYTE # (test code = LY#) 3.12 10 3/uL 1.50-4.00 N MONOCYTE # (test code = MO#) 0.65 10 3/uL 0.20-0.80 N EOSINOPHIL # (test code = EO#) 0.03 10 3/uL 0.0-0.5 N BASOPHIL # (test code = BA#) 0.05 10 3/uL 0.0-0.1 N COMPREHENSIVE METABOLIC [id number] 14:32:00 Test Item Value Reference Range Interpretation Comments SODIUM (test code 143 mmol/L 135-145 N = NA) POTASSIUM (test 4.3 mmol/L 3.5-5.1 N code = K) CHLORIDE (test 110 mmol/L 98-107 H code = CL) CARBON DIOXIDE 29 mmol/L 21-32 N (test code = CO2) ANION GAP (test 8.3 2.0-16.0 N code = GAP) GLUCOSE (test 91 mg/dL 65-99 N code = GLU) BLOOD UREA 17 mg/dL 4-23 N NITROGEN (test code = BUN) GLOMERULAR >=60 max >60 The estimated g lomerular FILTRATION RATE estimate filtration r ate is (test code = GFR) ml/min computed u singpatient race, age (>18) , sex, and serum creat inine. If anyof the neede d data elements are mi ssing the Laboratory ryley ot compute an jazmyn mation of the glomerular filtration rate . CREATININE (test 0.9 mg/dL 0.6-1.5 N code = CREAT) BUN/CREATININE 18.9 12.0-20.0 N RATIO (test code = BUN/CREA) TOTAL PROTEIN 7.7 g/dL 6.4-8.2 N (test code = PROT) ALBUMIN (test 3.8 g/dL 3.4-5.0 N code = ALB) CALCIUM (test 9.7 mg/dL 8.5-10.1 N code = CA) BILIRUBIN TOTAL 1.2 mg/dL 0.2-1.2 N Use of this assay is not (test code = recommended for patients BILT) undergoingtreat ment with Eltrombopag due to the potential for falselyelevated results. SGOT/AST (test 12 U/L 15-37 L code = AST) SGPT/ALT (test 25 U/L 6-50 N code = ALT) ALKALINE 71 U/L 45-117 N PHOSPHATASE (test code = ALKP) PROTHROMBIN [id number] 14:27:00 Test Item Value Reference Range Interpretation Comments PROTHROMBIN TIME 12.2 SECONDS 9.4-12.5 N PATIENT (test code = PTP) INTERNATIONAL 1.0 RATIO 0.8-1.1 N THE INR IS USE FUL ONLY NORMAL RATIO (test FOR MONIT ORING code = INR) ANTICOAGULANT THERAPY.IT MAY BE UNRELIABLE IN T HE INITIAL PHASE O F ANTICOAGULATION AND IN UNSTABLE PATIEN TS. 2.0-3.0 is the recommended INR for the following:Preve ntion of venous thrombol ism in high-risk patients;treatm ent of venous thrombos is and pulmonary embol ism aftera course o f heparin; preven tion of systemic emboli sm in avariety of con dition, including atria l fibrillation andprosthetic t issue heart valves.2. 5-3.5 is the recommended INR for the following:Prost hetic mechanical hear t values and/or recurren t systemicemboliz ation. THROMBOPLASTIN TIME [id number] 14:27:00 Test Item Value Reference Range Interpretation Comments THROMBOPLASTIN TIME PARTIAL 33.7 SECONDS 25.1-36.5 N (test code = PTT) Coronavirus 2018 nCoV [id number] 14:18:00 Test Item Value Reference Range Interpretation Comments Coronavirus 2018 Negative Negative This test h ad not been FDA nCoV Bedside cleared or appr ciro; This (test code = testhas been au thorized by [id number]) FDA under an E UA for use byauthorized la boratories only for the de tection of nucleicacid fro m SARS-CoV-2, not for any oth er viruses orpathogens. ID NOW COVID-19 assay performed on the ID [employer] i s a rapid molecular in vi tro diagnostic testutilizing a n isothermal nucleic acid amplificationte chnology intended for th e qualitative detection of nu cleicacid from the SARS-CoV-2 viral RNA in direct nasal,na sopharyngeal or throat swabs from individuals who aresuspected of COVID-19 by their healthcare prov ider withinthe first seven day s of the onset of symptoms. Te sting isauthorized fo r laboratories certified under the ClinicalLaborat ory Improvement [place] ndments of 1987 (CLIA), CBC W/AUTO [id number] 14:15:00 Test Item Value Reference Range Interpretation Comments WHITE BLOOD CELL (test code = 7.3 10 3/uL 4.5-11.0 N WBC) RED BLOOD CELL (test code = 4.06 10 6/uL 3.50-5.50 N RBC) HEMOGLOBIN (test code = HGB) 12.3 g/dL 12.0-16.0 N HEMATOCRIT (test code = HCT) 37.3 % 37.0-55.0 N MEAN CELL VOLUME (test code = 92 fL 81-102 N MCV) MEAN CELL HGB (test code = 30.3 pg 26.0-34.0 N MCH) MEAN CELL HGB CONCENTRATION 33.0 g/dL 31.0-37.0 N (test code = MCHC) RED CELL DISTRIBUTION WIDTH 12.2 % 11.6-14.4 N (test code = RDW) PLATELET COUNT (test code = 263 10 3/uL 150-400 N PLT) MEAN PLATELET VOLUME (test 10.6 fL 9.0-12.6 N code = MPV) NEUTROPHIL % (test code = NT%) 57.7 % 33.0-76.0 N IMMATURE GRANULOCYTE % (test 0.1 % 0.0-1.0 N code = IG%) LYMPHOCYTE % (test code = LY%) 36.7 % 14.0-56.4 N MONOCYTE % (test code = MO%) 4.0 % 0.0-12.9 N EOSINOPHIL % (test code = EO%) 0.8 % 0.0-7.0 N BASOPHIL % (test code = BA%) 0.7 % 0-2.0 N NUCLEATED RBC % (test code = 0.0 % 0-0.2 N NRBC%) NEUTROPHIL # (test code = NT#) 4.20 10 3/uL 1.5-7.0 N IMMATURE GRANULOCYTE # (test 0.010 x10 3/uL 0.000-0.100 N code = IG#) LYMPHOCYTE # (test code = LY#) 2.67 10 3/uL 1.50-4.00 N MONOCYTE # (test code = MO#) 0.29 10 3/uL 0.20-0.80 N EOSINOPHIL # (test code = EO#) 0.06 10 3/uL 0.0-0.5 N BASOPHIL # (test code = BA#) 0.05 10 3/uL 0.0-0.1 N [id number] 16:14:00 Test Item Value Reference Range Interpretation Comments SURG (test code = SURG) --------RUN DATE: 03/04/21 [facility] PAGE 1 RUN TIME: 1614 Specimen Inquiry RUN USER: INTERFACE --------PATIENT: RICHMOND STANFORD LOC: JAVIER U #: [id number] AGE/SX: 60/F ROOM: RE03/03/21[facility]: Agnes Bashir MD : 60 BED: DIS: STATUS: [facility] TLOC: -------- SPEC #: [id number]:[id number] RECD: 03/03/21 STATUS: EVER REEssence #: [id number] CAMRYN: 03/03/[address] [facility] [address]: Agnes Bashir MD ENTERED: 03/03/21 SP TYPE: SURG OTHR DR: No Primary or Family PhysicianORDERED: SURG PATH LVL 4 COPIES TO: No Primary or Family Physician Agnes Bashir MD [address] [place] [address] HISTOLOGY: TISSUE ID BLK PCS CASE LEV PROCEDURE DISPOSITION ____ ___ ___ ___ STOMACH, NOS A 1 2 PROCEDURES: SURG PATH LVL 4 (03/03/21) TISSUES: A. 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 Received in formalin is a borden tissue fragment, 0.3 cm, all as A. /ba/pdb Grossing performed at [facility] Pathology, [address] [place] [address], [address], [place], [place] [address]. Roller Cleaner: Edilberto White M.D. CONTINUED ON NEXT PAGE --------RUN DATE: 03/04/21 [facility] - LAB PAGE 2 RUN TIME: 1614 Specimen Inquiry RUN USER: INTERFACE --------SPEC #: [facility]:[id number] PATIENT: RICHMOND STANFORD #[id number] (Continued) MICROSCOPIC DESCRIPTION Antrum mass biopsy. Sections demonstrate oxyntic-type mucosa with mild chronic inflammatory cells in the lamina propria. Rare glands demonstrate intraepithelial neutrophils. Intestinal metaplasia is not identified on the Alcian Blue/PAS stain. Abundant Helicobacter pylori organisms are seen on the Diff-Quik stain. There is no evidence of neoplasm or malignancy. /pdb Signed SIGNATURE ON Dafne Cade 03/04/21 1614 -------- END OF REPORT BASIC METABOLIC [id number] 08:22:00 Test Item Value Reference Range Interpretation Comments SODIUM (test code = NA) 143 mmol/L 134-147 N POTASSIUM (test code = 3.4 mmol/L 3.4-5.0 N K) CHLORIDE (test code = 110 mmol/L 100-108 H CL) CARBON DIOXIDE (test 29 mmol/L 21-32 N code = CO2) ANION GAP (test code = 4.0 GAP calc 4.0-15.0 N GAP) GLUCOSE (test code = 102 MG/DL 70-110 N GLU) BLOOD UREA NITROGEN 17 MG/DL 7-18 N (test code = BUN) GLOMERULAR FILTRATION >=60 max estimate >60 RATE (test code = GFR) estGFR CREATININE (test code = 0.9 MG/DL 0.6-1.0 N CREAT) CALCIUM (test code = CA) 9.1 MG/DL 8.5-10.1 N CBC W/AUTO [id number] 08:19:00 Test Item Value Reference Range Interpretation Comments WHITE BLOOD CELL (test code = 9.8 K/mm3 3.5-11.0 N WBC) RED BLOOD CELL (test code = 3.84 M/mm3 4.70-6.10 L RBC) HEMOGLOBIN (test code = HGB) 11.8 G/DL 10.4-14.9 N HEMATOCRIT (test code = HCT) 35.9 % 31.5-44.1 N MEAN CELL VOLUME (test code = 93.5 Fl 84.5-98.6 N MCV) MEAN CELL HGB (test code = MCH) 30.7 pg 27.0-34.2 N MEAN CELL HGB CONCETRATION 32.9 G/DL 31.5-34.0 N (test code = MCHC) RED CELL DISTRIBUTION WIDTH 13.2 SD 11.5-14.5 N (test code = RDW) PLATELET COUNT (test code = 271 K/mm3 150-450 N PLT) MEAN PLATELET VOLUME (test code 11.10 fL 7.0-10.5 H = MPV) NEUTROPHIL % (test code = NT%) 59.7 % 40-76 N IMMATURE GRANULOCYTE % (test 0.3 % 0.0-5.0 N code = IG%) LYMPHOCYTE % (test code = LY%) 32.3 % 20.5-51.1 N MONOCYTE % (test code = MO%) 5.5 % 1.7-9.3 N EOSINOPHIL % (test code = EO%) 1.6 % 0.0-6.0 N BASOPHIL % (test code = BA%) 0.6 % 0.0-2.0 N NUCLEATED RBC % (test code = 0.0 /100WBC% 0.0-1.0 N NRBC%) NEUTROPHIL # (test code = NT#) 5.8 K/mm3 1.8-7.6 N IMMATURE GRANULOCYTE # (test 0.03 x10 3/uL 0.00-0.03 N code = IG#) LYMPHOCYTE # (test code = LY#) 3.2 K/mm3 0.6-3.2 N MONOCYTE # (test code = MO#) 0.5 K/mm3 0.3-1.1 N EOSINOPHIL # (test code = EO#) 0.2 K/mm3 0.0-0.4 N BASOPHIL # (test code = BA#) 0.1 K/mm3 0.0-0.1 N NUCLEATED RBC # (test code = 0.0 K/mm3 0.0-0.1 N NRBC#) MANUAL DIFF REQUIRED (test code NO DIFF/SCN CRITERIA = MDIFF) UA RFLX MICR CULT IF [id number] 22:30:00 Test Item Value Reference Range Interpretation Comments UA COLOR (test code = YELLOW discript YEL/STRAW COLU) UA APPEARANCE (test code CLEAR discript CLEAR = APPU) UA GLUCOSE DIPSTICK (test NEGATIVE mg/dL NEG code = DGLUU) UA BILIRUBIN DIPSTICK NEGATIVE mg/dL NEG (test code = BILU) UA KETONE DIPSTICK (test 1+ mg/dL NEG code = KETU) UA SPECIFIC GRAVITY (test 1.010 SG 1.005-1.030 code = SGU) UA BLOOD DIPSTICK (test TRACE mg/DL NEG A code = ARCHANA) UA PH DIPSTICK (test code 7.0 pH UNITS 5.0-7.0 = CALEB) UA PROTEIN DIPSTICK (test NEGATIVE mg/dL NEG code = PROU) UA UROBILINIOGEN DIPSTICK 0.2 mg/dL <2.0 (test code = URO) UA NITRITE DIPSTICK (test NEGATIVE SCREEN NEG code = MELIA) UA LEUKOCYTE ESTERASE 1+ Leuk/mcL NEGATIVE A DIPSTICK (test code = LEUU) UA WBC (test code = WBCU) 3-5 #WBC/HPF 0-3 A UA RBC (test code = RBCU) 1-3 #RBC/HPF 0-3 UA BACTERIA (test code = TRACE /HPF NONE-TRACE BACU) UA SQUAMOUS CELLS (test TRACE /HPF NONE code = SQU) UA CULTURE NEEDED? (test NO, WBC<10 Criteria Culture CHK code = UACULT) Indication for culture: RiskForSepsis-no oth srcUA RFLX MICR CULT IF INDICATED 2021-02-07 22:20:00 Test Item Value Reference Range Interpretation Comments UA COLOR (test code = COLU) YELLOW discript YEL/STRAW UA APPEARANCE (test code = CLEAR discript CLEAR APPU) UA GLUCOSE DIPSTICK (test NEGATIVE mg/dL NEG code = DGLUU) UA BILIRUBIN DIPSTICK (test NEGATIVE mg/dL NEG code = BILU) UA KETONE DIPSTICK (test code 1+ mg/dL NEG = KETU) UA SPECIFIC GRAVITY (test 1.010 SG 1.005-1.030 code = SGU) UA BLOOD DIPSTICK (test code TRACE mg/DL NEG A = ARCHANA) UA PH DIPSTICK (test code = 7.0 pH UNITS 5.0-7.0 CALEB) UA PROTEIN DIPSTICK (test NEGATIVE mg/dL NEG code = PROU) UA UROBILINIOGEN DIPSTICK 0.2 mg/dL <2.0 (test code = URO) UA NITRITE DIPSTICK (test NEGATIVE SCREEN NEG code = MELIA) UA LEUKOCYTE ESTERASE 1+ Leuk/mcL NEGATIVE A DIPSTICK (test code = LEUU) UA CULTURE NEEDED? (test code Criteria Culture CHK = UACULT) Indication for culture: RiskForSepsis-no oth srcBASIC METABOLIC [id number] 21:16:00 Test Item Value Reference Range Interpretation Comments SODIUM (test code = NA) 141 mmol/L 134-147 N POTASSIUM (test code = 3.1 mmol/L 3.4-5.0 L K) CHLORIDE (test code = 104 mmol/L 100-108 N CL) CARBON DIOXIDE (test 30 mmol/L 21-32 N code = CO2) ANION GAP (test code = 7.0 GAP calc 4.0-15.0 N GAP) GLUCOSE (test code = 89 MG/DL 70-110 N GLU) BLOOD UREA NITROGEN 10 MG/DL 7-18 N (test code = BUN) GLOMERULAR FILTRATION >=60 max estimate >60 RATE (test code = GFR) estGFR CREATININE (test code = 0.7 MG/DL 0.6-1.0 N CREAT) CALCIUM (test code = CA) 9.2 MG/DL 8.5-10.1 N Completed by Nursing: DALTONHEPATIC FUNCTION [id number] 21:16:00 Test Item Value Reference Range Interpretation Comments TOTAL PROTEIN (test code = PROT) 7.7 G/DL 6.4-8.2 N ALBUMIN (test code = ALB) 3.8 G/DL 3.4-5.0 N BILIRUBIN TOTAL (test code = BILT) 1.00 MG/DL 0.2-1.2 N BILIRUBIN DIRECT (test code = 0.20 MG/DL 0.00-0.30 N BILD) BILIRUBIN INDIRECT (test code = 0.80 MG/DL 0.2-1.2 N BILIND) SGOT/AST (test code = AST) 13 Unit/L 15-37 L SGPT/ALT (test code = ALT) 26 Unit/L 12-78 N ALKALINE PHOSPHATASE TOTAL (test 76 Unit/L 45-117 N code = ALKP) Completed by Nursing: [id number] 21:16:00 Test Item Value Reference Range Interpretation Comments LIPASE (test code = LIP) 82 Unit/L 114-286 L Completed by Nursing: [id number] 21:16:00 Test Item Value Reference Range Interpretation Comments TROPONIN-I (test < 0.015 NG/ML 0.000-0.045 N Negative: </= 0.045 code = TROPI) Positive: >/= 0.046 Correlation wit h serial results, other cardiac markers, and cl inical findings is nec essary to determine the c linical significance of this result. Quantit ative results using d ifferent methodologies s hould not be compared to one another as nume rical results may filiberto yby method. Completed by Nursing: DALTONBASIC METABOLIC [id number] 21:04:00 Test Item Value Reference Range Interpretation Comments SODIUM (test code = NA) 141 mmol/L 134-147 N POTASSIUM (test code = K) 3.1 mmol/L 3.4-5.0 L CHLORIDE (test code = CL) 104 mmol/L 100-108 N CARBON DIOXIDE (test code = CO2) 30 mmol/L 21-32 N ANION GAP (test code = GAP) 7.0 GAP calc 4.0-15.0 N GLUCOSE (test code = GLU) 89 MG/DL 70-110 N BLOOD UREA NITROGEN (test code = 10 MG/DL 7-18 N BUN) GLOMERULAR FILTRATION RATE (test estGFR >60 code = GFR) CREATININE (test code = CREAT) MG/DL 0.6-1.0 CALCIUM (test code = CA) 9.2 MG/DL 8.5-10.1 N Completed by Nursing: NOHEPATIC FUNCTION [id number] 21:04:00 Test Item Value Reference Range Interpretation Comments TOTAL PROTEIN (test code = PROT) G/DL 6.4-8.2 ALBUMIN (test code = ALB) G/DL 3.4-5.0 BILIRUBIN TOTAL (test code = BILT) MG/DL 0.2-1.2 BILIRUBIN DIRECT (test code = BILD) MG/DL 0.00-0.30 BILIRUBIN INDIRECT (test code = MG/DL 0.2-1.2 BILIND) SGOT/AST (test code = AST) Unit/L 15-37 SGPT/ALT (test code = ALT) Unit/L 12-78 ALKALINE PHOSPHATASE TOTAL (test code Unit/L 45-117 = ALKP) Completed by Nursing: [id number] 21:04:00 Test Item Value Reference Range Interpretation Comments LIPASE (test code = LIP) 82 Unit/L 114-286 L Completed by Nursing: [id number] 21:04:00 Test Item Value Reference Range Interpretation Comments TROPONIN-I (test code = TROPI) NG/ML 0.000-0.045 Completed by Nursing: NOCBC W/AUTO [id number] 20:51:00 Test Item Value Reference Range Interpretation Comments WHITE BLOOD CELL (test code = 9.9 K/mm3 3.5-11.0 N WBC) RED BLOOD CELL (test code = 3.83 M/mm3 4.70-6.10 L RBC) HEMOGLOBIN (test code = HGB) 11.6 G/DL 10.4-14.9 N HEMATOCRIT (test code = HCT) 34.8 % 31.5-44.1 N MEAN CELL VOLUME (test code = 90.9 Fl 84.5-98.6 N MCV) MEAN CELL HGB (test code = MCH) 30.3 pg 27.0-34.2 N MEAN CELL HGB CONCETRATION 33.3 G/DL 31.5-34.0 N (test code = MCHC) RED CELL DISTRIBUTION WIDTH 13.2 SD 11.5-14.5 N (test code = RDW) PLATELET COUNT (test code = 292 K/mm3 150-450 N PLT) MEAN PLATELET VOLUME (test code 10.50 fL 7.0-10.5 N = MPV) NEUTROPHIL % (test code = NT%) 66.7 % 40-76 N IMMATURE GRANULOCYTE % (test 0.2 % 0.0-5.0 N code = IG%) LYMPHOCYTE % (test code = LY%) 27.5 % 20.5-51.1 N MONOCYTE % (test code = MO%) 4.0 % 1.7-9.3 N EOSINOPHIL % (test code = EO%) 1.2 % 0.0-6.0 N BASOPHIL % (test code = BA%) 0.4 % 0.0-2.0 N NUCLEATED RBC % (test code = 0.0 /100WBC% 0.0-1.0 N NRBC%) NEUTROPHIL # (test code = NT#) 6.6 K/mm3 1.8-7.6 N IMMATURE GRANULOCYTE # (test 0.02 x10 3/uL 0.00-0.03 N code = IG#) LYMPHOCYTE # (test code = LY#) 2.7 K/mm3 0.6-3.2 N MONOCYTE # (test code = MO#) 0.4 K/mm3 0.3-1.1 N EOSINOPHIL # (test code = EO#) 0.1 K/mm3 0.0-0.4 N BASOPHIL # (test code = BA#) 0.0 K/mm3 0.0-0.1 N NUCLEATED RBC # (test code = 0.0 K/mm3 0.0-0.1 N NRBC#) MANUAL DIFF REQUIRED (test code NO DIFF/SCN CRITERIA = MDIFF) COVID-19 (ID NOW RAPID TESTING)2020-11-18 23:04:06 Test Item Value Reference Range Interpretation Comments SARS-CoV-2 Rapid ID NOW Not Detected Not Detected (test code = 27730-7) SALUD (test code = SALUD) ID NOW COVID-19 Assay is an isothermal nucleic acid amplification test intended for the qualitative detection of nucleic acid from SARS-CoV-2 viral RNA in nasopharyngeal ([employer]NAGER) specimens. It is used under Emergency Use Authorization (EUA) by FDA. The limit of detection (LOD) of the assay is 125 Genome Equivalents/mL. A positive result is indicative of the presence of SARS-CoV-2 RNA. ?Clinical correlation with patient history and other diagnostic information is necessary to determine patient infection status. A negative (Not Detected) result does not preclude SARS-CoV-2 infection. In patients with clinical symptoms and other tests that are consistent with SARS-CoV-2 infection, negative results should be treated as presumptive negative and a new specimen should be tested with alternative PCR molecular test. Invalid: Please collect a new specimen for repeat patient testing if clinically indicated. Lab Interpretation Normal (test code = 66773-5) [facility]B, T.PRO, BILI T, BU/BC, ALT, AST, ALK PHOS)2020-11-18 23:02:24 Test Item Value Reference Range Interpretation Comments TOTAL BILI (test code = 4956603858) 1.3 mg/dL 0.1-1.1 H BILI UNCON (test code = 4867193285) 1.4 mg/dL 0.1-1.1 H BILI CONJ (test code = 7820827215) 0.0 mg/dL 0.0-0.3 T PROTEIN (test code = 3823098583) 8.6 g/dL 6.3-8.2 H ALBUMIN (test code = 1716927029) 5.1 g/dL 3.5-5.0 H ALK PHOS (test code = 9805996873) 106 U/L 34-122 ALTv (test code = 1742-6) 32 U/L 5-35 AST(SGOT) (test code = 2705153630) 25 U/L 13-40 Lab Interpretation (test code = Abnormal 00419-7) [facility] Metabolic Panel (NA, K, CL, CO2, GLUCOSE, BUN, CREATININE, CA)2020-11-18 23:02:04 Test Item Value Reference Range Interpretation Comments NA (test code = 141 mmol/L 135-145 5047014109) K (test code = 3.9 mmol/L 3.5-5.0 5386173258) CL (test code = 104 mmol/L 98-108 2170503719) CO2 TOTAL (test code = 27 mmol/L 23-31 2040592616) AGAP (test code = 2-16 1074230756) BUN (test code = 14 mg/dL 7-23 9584009257) GLUCOSE (test code = 93 mg/dL 70-110 4627143713) CREATININE (test code 0.73 mg/dL 0.50-1.04 = 4965046218) CALCIUM (test code = 9.5 mg/dL 8.6-10.6 1657058209) eGFR Calculation mL/min/1.73m2 (Non-) (test code = 2909353317) eGFR Calculation mL/min/1.73m2 () (test code = 4056360139) SALUD (test code = SALUD) Association of Glomerular Filtration Rate (GFR) and Staging of Kidney Disease* + -+ + ---+| GFR (mL/min/1.73 m2) ?| With Kidney Damage ?| ?Without Kidney Damage+ -------+ ------+ ---------+| ?>90 ?| ?Stage one ?| ? Normal ?+ --+ -+ ----+| ?60-89 ?| ?Stage two ?| ? Decreased GFR ? + -+ + ---+| ?30-59 ?| ?Stage three ?| ? Stage three ? + -+ + ---+| ?15-29 ?| ?Stage four ? | ? Stage four ?+ --+ -+ ----+| ?<15 (or dialysis) ? ?| ?Stage five ? | ? Stage five ?+ --+ -+ ----+ *Each stage assumes the associated GFR level has been in effect for at least three months. ?Stages 1 to 5, with or without kidney disease, indicate chronic kidney disease. Notes: Determination of stages one and two (with eGFR >59mL/min/1.73 m2) requires estimation of kidney damage for at least three months as defined by structural or functional abnormalities of the kidney, manifested by either:Pathological abnormalities or Markers of kidney damage (including abnormalities in the composition of the blood or urine or abnormalities in imaging tests). [facility] [id number] 23:02:04 Test Item Value Reference Range Interpretation Comments LIPASE (test code = 7155664969) 40 U/L 0-220 Lab Interpretation (test code = Normal 94934-6) [facility] Test Item Value Reference Range Interpretation Comments APPEARANCE (test code = Cloudy Clear A 4200815160) COLOR (test code = Hilaria Yellow A 8024020334) PH (test code = 4.8-8.0 8099051639) SP GRAVITY (test code = 1.003-1.030 5209327896) GLU U QUAL (test code = Normal Normal 6339970795) BLOOD (test code = Negative Negative 6312761741) KETONES (test code = 20 mg/dL Negative A 9657326138) PROTEIN (test code = Negative Negative 2887-8) UROBILIN (test code = Normal Normal 2763986144) BILIRUBIN (test code = Negative Negative 4125760676) NITRITE (test code = Negative Negative 2633032590) LEUK DARYN (test code = Negative Negative 3346245944) RBC/HPF (test code = See_Comment [Autom ated message] 8468481898) The system [employer] generated this result transmitted ref erence range: 0 - 3 HP F. The reference range was not used to int erpret this result as normal/abnormal . WBC/HPF (test code = See_Comment [Autom ated message] 3453409682) The system [employer] generated this result transmitted ref erence range: 0 - 5 HP F. The reference range was not used to int erpret this result as normal/abnormal . BACTERIA (test code = Few Negative A 6846031467) MUCOUS (test code = Marked Negative LPF A 1599336930) AMORPHOUS (test code = Rare Rare HPF 4966659127) SQ EPITH (test code = HPF 7705781687) CA OXALATE (test code = See_Comment H [Au tomated message] 1193156590) The system [employer] generated this result transmitted ref erence range: <=1 HPF. The reference range was not used to int erpret this result as normal/abnormal . Lab Interpretation (test Abnormal code = 29077-3) [facility] [id number] 22:52:42 Test Item Value Reference Range Interpretation Comments WBC (test code = See_Comment [Automated message] 6690-2) The system [employer] generated this result transmitted ref erence range: 4.30 - 1 1.10 10*3/?L. The re ference range was not u sed to interpret this result as normal/abnor mal. RBC (test code = See_Comment [Automated message] 789-8) The system [employer] generated this result transmitted ref erence range: 3.93 - 5 .25 10*6/?L. The re ference range was not u sed to interpret this result as normal/abnor mal. HGB (test code = 13.3 g/dL 11.6-15.0 718-7) HCT (test code = 40.3 % 35.7-45.2 4544-3) MCV (test code = 89.8 fL 80.6-95.5 787-2) MCH (test code = 29.6 pg 25.9-32.8 785-6) MCHC (test code = 33.0 g/dL 31.6-35.1 786-4) RDW-SD (test code 40.4 fL 39.0-49.9 = 37166-1) RDW-CV (test code 12.2 % 12.0-15.5 = 788-0) PLT (test code = See_Comment [Automated message] 777-3) The system whic h generated this result transmitted ref erence range: 166 - 35 8 10*3/?L. The re ference range was not u sed to interpret this result as normal/abnor mal. MPV (test code = 10.5 fL 9.5-12.9 35026-8) NRBC/100 WBC (test See_Comment [Automat ed message] code = 2307010436) The syste m which generated this result transmitted ref erence range: 0.0 - 10 .0 /100 WBCs. The refer ence range was not u sed to interpret this result as normal/abnor mal. NRBC x10^3 (test <0.01 See_Comment [Automated message] code = 8978222617) The syste m which generated this result transmitted ref erence range: 10*3/?L. The reference range was not used to interpr et this result as normal/abnormal . GRAN MAT (NEUT) % 60.4 % (test code = 770-8) IMM GRAN % (test 0.30 % code = 7440727501) LYMPH % (test code 34.0 % = 736-9) MONO % (test code 4.0 % = 5905-5) EOS % (test code = 0.5 % 713-8) BASO % (test code 0.8 % = 706-2) GRAN MAT 5.33 10*3/uL 1.88-7.09 x10^3(ANC) (test code = 5337735476) IMM GRAN x10^3 0.03 10*3/uL 0.00-0.06 (test code = 2172124138) LYMPH x10^3 (test 3.00 10*3/uL 1.32-3.29 code = 731-0) MONO x10^3 (test 0.35 10*3/uL 0.33-0.92 code = 742-7) EOS x10^3 (test 0.04 10*3/uL 0.03-0.39 code = 711-2) BASO x10^3 (test 0.07 10*3/uL 0.01-0.07 code = 704-7) [facility][U] XRAY HAND MIN 3 VWS LEFT [id number] 08:31:00Images acquired, not reported on this accession number.[facility][U] XRAY HAND MIN 3 VWS LEFT [id number] 15:09:00Images acquired, not reported on this accession number.[facility][U] XRAY HAND MIN 3 VWS LEFT [id number] 2018-11-03 09:32:00Images acquired, not reported on this accession number.[facility] Notes Date/Time Note Provider Source 2021-08-12 15:41:00-00:00 [id number] [facility] [address] [facility] [address] PATIENT NAME: RICHMOND STANFORD ADMIT DATE: ACCOUNT NO: [id number] ROOM NO: NC.4208 AGE: 60 REPORT TYPE: OPERATIVE REPORT SEX: F ADMITTING PHYSICIAN:Daya Clemens MD ATTENDING PHYSICIAN:Daya Clemens MD OPERATION DATE: 08/12/2021 SURGEON: Daya Clemens MD RESOURCE EFFICIENCY MANAGER: Seth Christiansen, licensed surgica l assist. SECOND CASH PROCESSOR: Ira Mao, nurse practitio ner. THIRD CASH PROCESSOR: Kamron West, PGY3, surgery reside nt. ANESTHESIA: General. PREOPERATIVE DIAGNOSIS: Gastric mass. POSTOPERATIVE DIAGNOSIS: Gastric mass involving the posterior aspect of the antrum close to the greater curvature. PROCEDURE: Robotic-assisted resection of gastric mass. COMPLICATIONS: None. ESTIMATED BLOOD LOSS: Minimal. SPECIMEN TAKEN OUT: Gastric mass. INDICATIONS FOR THE PROCEDURE: The patient is a 60-year-old female, who has been worked up by GI and her primary care doctor for abdominal pain. Workup has shown that she has a gastric mass on the posteri or aspect of her stomach, was scheduled today for resectio n. Risks and benefits of the surgery were discussed with her in detail and the family. PROCEDURE IN DETAIL: The patient was taken to [facility] operating room and placed supine on the operating table. After inducing ge neral anesthesia, her abdomen cleaned and draped in the standard surgical formerly [facility] ion. After that, appropriate timeout was done. An incision was made to the le ft side of the umbilicus with 11 blade. Using a 5-mm, 0-degree camera and Visi port, her abdomen was entered successfully and insufflated with carbon dioxide gas to a pressure of 15 mmHg. After that, I have switched the camera to a 5 mm, 30-degree scope. There was no injury to any bowels. I have placed 2 other 8-mm ports in the left upper quadrant in the left anterior axillary l ine and left midclavicular line. Entry port was switched to an 8-mm port. The 8-mm port in the right upper quadrant in the right anterior axillary line was placed unde r direct visualization of the PATIENT NAME: RICHMOND STANFORD [id number] camera. She had some adhesions from her open cho lecystectomy. I placed the camera in the middle, a fenestrated bipolar on t he right side of the patient, and Cadiere and vessel jas r alternating with the scissors on the left side of the patient. Initially, I have taken down some o f the adhesions robotically, which were like omentum to a bdominal wall and then I have used the vessel sealer to open the greater curvature of the stomach at the antrum. I have identified the gastric mass. It was posterior on the antrum and close to the greater curvature of the stomach, so I decided j ust to wedge it out robotically with a stapler. I have used 2 green loads robotic 60 mm half reinforced with SeamGuards and made sure kristin t I do not narrow the incisura angularis. There was plenty of space. At that point, the surg blu has been done. The staple line was dry. I have undocked the piedad ot, scrubbed back again, dilated the 12-mm port and pulled out the specimen and gave it away . Then, I approximated the fascia with #1 PDS with a vyvdrt-eo-accfy. No other patholog y was found. The abdomen deflated and the ports were taken under direct visualization of the camera. The PDS was tied down. Marcaine 0.5% mixed with Expa rel was injected at all port sites. A 4-0 Monocryl was used to close skin sub cuticularly and Dermabond applied. The patient tolerated the procedure wel l, extubated, and sent to recovery room in good condition. Number of needl e count, sponge, and instruments was correct x2 at the end of the case e. Dictated By: Daya Clemens MD WT: OP:NC.ESTEPHANIE/JEWELS/NTS Conf#: [id number]/DID#: [id number] Authenticated by Daya Clemens MD On 08/13/2021 05:5 5:24 PM Electronically Signed by Daya Clemens MD on 1 at 0555 PATIENT NAME: RICHMOND STANFORD [id number] 2021-08-07 13:58:00-00:00 [id number] [place] [address] PATIENT NAME: RICHMOND STANFORD ADMIT DATE: ACCOUNT NO: [id number] ROOM NO: AGE: 60 REPORT TYPE: eELECTROCARDIOGRAM SEX: F ADMITTING PHYSICIAN:Daya Clemens MD ATTENDING PHYSICIAN:Daya Clemens MD Order: [id number] Test Reason : PREOP Test Date/Time Stamp: WedAug 07 2021 13:58:17 Blood Pressure : / mmHG Vent. Rate : 064 BPM Atrial Rate : 064 BPM P-R Int : 138 ms QRS Dur : 092 ms QT Int : 414 ms P-R-T Axes : 075 022 030 degree s QTc Int : 427 ms Normal sinus rhythm Incomplete right bundle branch block Anteroseptal infarct , age undetermined Abnormal ECG No previous ECGs available Confirmed by SHONDA DELVALLE MD ([id number]) on 08/07/2021 8:04:09 PM Referred By: Daya Clemens Confirmed by:SHONDA SAUCEDA MD Electronically Signed by Shonda Magaña MD o n 08/07/21 at [address] [address] PATIENT NAME: RICHMOND STANFORD [id number] 2021-03-03 09:26:00-00:00 [id number] [facility] [address] [place] [address] PATIENT NAME: RICHMOND STANFORD ADMIT DATE: ACCOUNT NO: [id number] ROOM NO: AGE: 60 REPORT TYPE: OPERATIVE REPORT SEX: F ADMITTING PHYSICIAN: ATTENDING PHYSICIAN: Agnes Bashir MD OPERATION DATE: 03/03/2021 PROCEDURES: 1. EGD. 2. Biopsy. 3. Endoscopic ultrasound, re al and static image interpretation, both radial and linear. SURGEON: Agnes Bashir MD CASH PROCESSOR: ANESTHESIA: Administered by Department of Anesth esia. INDICATION: Gastric mass. COMPLEXITY: Complex procedure. TOLERANCE TO ANESTHESIA: Excellent. PROCEDURE IN DETAIL: Procedure, possible complic ation, and alternatives including but not limited to possibility of blee ding, perforation, tear, infection, sepsis, need for surgery, need for bl ood transfusion, and lack of guarantee were explained to the patient. Informe d consent obtained. She was placed in left lateral position. After appropria te level of anesthesia, first forward forward-view EGD sco pe was inserted. The gastric impression of external gastric mass was noted at the junction of the kyle dy and the antrum. Minimal gastritis noted throughout. Duodenal bul b, duodenal angle, and duodenal part 2 appeared to be normal. Esophagus was nor mal. After this, the scope was removed and radial ultrasound was used. Major structures including the pancreas and liver appeared to be within normal range . The patient had cholecystectomy. The mass was noted to be arising out of the muscle layer well circumscribed dense 16 x 14 mm. No invasion was noted in any other reyes cent area, this was well circumscribed. After defining, radial scope was removed and linear scope was used. In the linear scope also, same thi ng was confirmed and no other invasion noted. Having done the above procedure in safe, diligen t, and satisfactory manner, endoscope and rest of the endoscopic accessories were removed. The patient's oropharyngeal area cleaned out in respec tful manner. The patient has been sent in excellent condition to postoperative recovery , from there to the home. 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 PLAN: We will discuss with the patient and recom mend surgery. COMPLICATIONS: None. The patient tolerated the procedure well. DISPOSITION: As above. Dictated By: Agnes Bashir MD WT: OP:L.ESTEPHANIE/DEDRICK/SERGIO Conf#: [id number]/DID#: [id number] Authenticated by Agnes Bashir MD On 03/19/2021 08:41:56 AM at 0842 PATIENT NAME: RICHMOND STANFORD [id number] 2021-02-07 19:19:00-00:00 [facility] ([facility]) EMERGENCY PROVIDER REPORT REPORT#:[id number] REPORT STATUS: Signed DATE:02/07/21 TIME:1918 PATIENT: RICHMOND STANFORD UNIT #: [id number] ROOM/BED: : 60 AGE: 60 SEX: F PCP PHYS: No Primar y or Family Physician SERVICE AUTHOR: Hans Kang MD * ALL edits or amendments must be made on the el Network Chemistry/computer document * HPI-Abd Pain F 40 and Over Free Text HPI Notes Free Text HPI Notes 60-year-old female with past medical history of H. pylori and hiatal hernia presents the emergency department with upper abd ominal pain associated with nausea and shortness of breath. Patient states s he said symptoms overall over the last 6 months. She last had an EGD in December which showed a stomach lesion and was diagnosed with hiatal hernia at that keo e. Patient states that she is undergone 2 treatment rounds for H. pylori but c ontinues to have persistent symptoms. She states she was due to have an EGD today however the EGD was canceled. She states that she was told by Dr. Me ayers's office to present to the emergency department for admission and E GD. Patient denies vomiting, diarrhea, fever, chills, chest pain. Patient reports the p ain is in the upper quadrants bilateral burning and sharp constant. General Initial Greet Date/Time 02/07/211907 Presentation Chief Complaint Abdominal pain Hx Obtained From Patient Sudden in Onset? No Risk-Abd Pain F 40 and Over )( Abdominal Aortic Aneurysm Risk factors review ed Review of Systems ROS Statements All systems rev neg except as marked. Focused Review of Systems Constitutional Denies: Chills, Fever, Lethargy. Respiratory Reports: Shortness of breath . Denies: Cough, non-productive, Cough, productive. Cardiovascular Denies: Chest pain, Syncope. GI Reports: Abdominal pain, Nausea. Denies: Vomitin g. Female Denies: Dysuria, Flank pain, Pelvic pain. Musculoskeletal Denies: Back pain, Extremity pain. Past Medical History - Adult Stated Complaint ENDOSCOPY NEEDED PER DR BASHIR-TO LD HER TO COME Allergies Coded Allergies: ibuprofen (From ADVIL) (Severe, ANGIOEDEMA 02/07) peanut (Severe, ANGIOEDEMA 02/07/21) Uncoded Allergies: TRIPLE MIX (Severe, SHORTNESS OF BREATH 02/07/21 ) Pt reports no significant: P ast surgical history, Family history, Social history Smoking status: Smoking status for patients 13 years old or old er: Never Smoker Physical Exam Vital Signs Vital Signs First Documented: Result Date Time Pulse Ox 98 02/08 1908 B/P 159/83 02/08 1908 B/P Mean 108 02/08 1908 O2 Delivery Room air 02/08 1908 Temp 36.3 02/08 1908 Pulse 80 02/08 1908 Resp 16 02/08 1908 Last Documented: Result Date Time Pulse Ox 100 02/07 2215 B/P 170/70 02/07 2215 B/P Mean 103 02/07 2215 O2 Delivery Room air 02/07 2215 Pulse 76 02/07 221 Temp 36.3 02/08 1908 Resp 16 02/08 1908 Review of Vital Signs Reviewed Focused PE General/Const General/Const Awake, Alert MS Head Head Normocephalic Eyes Eyes PERRL Ears/Nose/Throat Ears/Nose/Throat Airway patent, Mucous membrane s moist, Pharynx NL Resp/Chest Respiratory/Chest Breath sounds NL, Breath soun ds = bilat, No respiratory distress, No rales, No rhonchi, No wheezing Cardiovascular Cardiovascular Heart rate NL, Regular rhythm, H eart sounds NL, Peripheral circulation NL Abdomen/GI Abdomen/GI Soft, McBurney's non-tender, No guar ding, No rebound, BS normoactive, No distention, No hernia, No palpab le mass, No pulsatile mass Text/Dict Notes Mild tenderness in the upper quadrants to palpat ion MS Back Back Inspection NL, Non-tender, No CVA tenderne ss Skin Skin Color NL, Warm, Dry, Turgor NL Neurologic Neurologic Oriented X3, Speech NL, No motor def icits, Gait NL Interpretation Diagnostics Lab Results Interpretation Results Laboratory Tests 02/07/212039: [Embedded Image Not Available] Laboratory Tests: 02/07 Chemistry Sodium (134 - 147 mmol/L) 141 Potassium (3.4 - 5.0 mmol/L) 3.1 L Chloride (100 - 108 mmol/L) 104 Carbon Dioxide (21 - 32 mmol/L) 30 Anion Gap (4.0 - 15.0 GAP calc) 7.0 BUN (7 - 18 MG/DL) 10 Creatinine (0.6 - 1.0 MG/DL) 0.7 Glomerular Filtr Rate (>60 estGFR) >=60 max est imate Glucose (70 - 110 MG/DL) 89 Calcium (8.5 - 10.1 MG/DL) 9.2 Total Bilirubin (0.2 - 1.2 MG/DL) 1.00 Direct Bilirubin (0.00 - 0.30 MG/DL) 0.20 Indirect Bilirubin (0.2 - 1.2 MG/DL) 0.80 AST (15 - 37 Unit/L) 13 L ALT (12 - 78 Unit/L) 26 Total Alk Phosphatase (45 - 117 Unit/L) 76 Troponin I (0.000 - 0.045 NG/ML) < 0.015 Total Protein (6.4 - 8.2 G/DL) 7.7 Albumin (3.4 - 5.0 G/DL) 3.8 Lipase (114 - 286 Unit/L) 82 L Hematology WBC (3.5 - 11.0 K/mm3) 9.9 RBC (4.70 - 6.10 M/mm3) 3.83 L Hgb (10.4 - 14.9 G/DL) 11.6 Hct (31.5 - 44.1 %) 34.8 MCV (84.5 - 98.6 Fl) 90.9 MCH (27.0 - 34.2 pg) 30.3 MCHC (31.5 - 34.0 G/DL) 33.3 RDW (11.5 - 14.5 SD) 13.2 Plt Count (150 - 450 K/mm3) 292 MPV (7.0 - 10.5 fL) 10.50 Neut % (Auto) (40 - 76 %) 66.7 Lymph % (Auto) (20.5 - 51.1 %) 27.5 [place] % (Auto) (1.7 - 9.3 %) 4.0 Eos % (Auto) (0.0 - 6.0 %) 1.2 Baso % (Auto) (0.0 - 2.0 %) 0.4 Neut # (Auto) (1.8 - 7.6 K/mm3) 6.6 Lymph # (Auto) (0.6 - 3.2 K/mm3) 2.7 [place] # (Auto) (0.3 - 1.1 K/mm3) 0.4 Eos # (Auto) (0.0 - 0.4 K/mm3) 0.1 Baso # (Auto) (0.0 - 0.1 K/mm3) 0.0 Abs Immat Gran (auto) (0.00 - 0.03 x10 3/uL) 0. 02 Add Manual Diff (CRITERIA DIFF/SCN) NO Immature Gran % (0.0 - 5.0 %) 0.2 Nucleated RBC % (0.0 - 1.0 /100WBC%) 0.0 Urines Urine Color (YEL/STRAW discript) YELLOW Urine Appearance (CLEAR discript) CLEAR Urine pH (5.0 - 7.0 pH UNITS) 7.0 Ur Specific [place] (1.005 - 1.030 SG) 1.010 Urine Protein (NEG mg/dL) NEGATIVE Urine Glucose (UA) (NEG mg/dL) NEGATIVE Urine Ketones (NEG mg/dL) 1+ Urine Blood (NEG mg/DL) TRACE H Urine Nitrite (NEG SCREEN) NEGATIVE Urine Bilirubin (NEG mg/dL) NEGATIVE Urine Urobilinogen (<2.0 mg/dL) 0.2 Ur Leukocyte Esterase (NEGATIVE Leuk/mcL) 1+ H Urine RBC (0 - 3 #RBC/HPF) 1-3 Urine WBC (0 - 3 #WBC/HPF) 3-5 H Ur Squamous Epith Cells (NONE /HPF) TRACE Urine Bacteria (NONE - TRACE /HPF) TRACE Urine Culture Screen (Culture CHK Criteria) NO, WBC<10 ECG #1 Interpretation Text/Dict Note EKG reviewed and interpreted by myself. Time 1917. Heart rate 75, normal sinus rhythm, nonspecific ST-T changes, no STEMI. Re-Evaluation MDM Free Text MDM Notes Free Text MDM Notes Differential diagnosis gastritis, GERD, peptic u lcer, among others. Labs reviewed and discussed with patient. Patient declined imaging at this time. P.o. tolerant in ED abdomen benign. Longstanding hist ory with recent EGD 2 months ago. Discussed with patient no indication at thi s time for urgent or emergent EGD. Follow-up with GI, plan s meds, return collections. Patient understands and agrees to plan. )( Re-Evaluation/Progress #1 Time of Re-Eval 2206 )( Re-Eval Status stable ED Course Medication(s) Ordered Medication(s) Ordered: Autonomic Drugs Sig/Yesy Start time Last Medication Dose Route Stop Time Status Admin Dicyclomine HCl 20 MG ONCE 02/07 2015 DCD 02/07 PO 03/09 Cardiovascular Drugs Sig/Yesy Start time Last Medication Dose Route Stop Time Status Admin Lidocaine HCl 10 ML ONCE 02/07 2015 DCD 02/07 PO 03/09 Central Nervous System Agents Sig/Yesy Start time Last Medication Dose Route Stop Time Status Admin Morphine Sulfate 2 MG ONCE ONE 02/07 2145 DC IV 02/07 Morphine Sulfate 2 MG ONCE ONE 02/07 2100 DC IV 02/07 Morphine Sulfate 4 MG X1ED STA 02/07 1946 CAN IV 02/07 1947 Electrolytic, Caloric, And Rose Marie Sig/Yesy Start time Last Medication Dose Route Stop Time Status Admin Sodium Chloride 1,000 ML X1ED STA 02/07 1946 DC / IV 02/07 2046 204 Gastrointestinal Drugs Sig/Yesy Start time Last Medication Dose Route Stop Time Status Admin Sucralfate 1 GM X1ED STA 02/07 2145 DC 02/07 PO 02/07 Al Hydrox/Mg Hydrox/ 20 ML ONCE ONE 02/07 2015 DC 02/07 Simethicone PO 02/07 Ondansetron HCl 4 MG X1ED PRN PRN 02/08 2000 DC 02/07 IV 02/08 Consultation Consultation Referral/Consult Name Agnes Bashir MD Baseball Inspector Called Gastroenterology Requested Call Time 1943 Requested Call Date 02/07/21 Call Returned Call returned Call Returned Time 1999 Call Returned Date 02/07/21 Free Text Consult Notes Discussed with Dr. Bashir he s vlad if and work-up indicates admission for urgent or emergent EGD that is fine if not okay for out patient follow-up. Patient Discharge Departure Vital Signs/Condition Vital Signs First Documented: Result Date Time Pulse Ox 98 02/07 1908 B/P 159/83 / 1908 B/P Mean 108 02/07 1908 O2 Delivery Room air 02/08 1908 Temp 36.3 02/08 1908 Pulse 80 02/07 190 Resp 16 02/08 1908 Last Documented: Result Date Time Pulse Ox 100 02/07 2215 B/P 170/70 / 2215 B/P Mean 103 / 2215 O2 Delivery Room air 02/07 2215 Pulse 76 02/07 221 Temp 36.3 02/07 190 Resp 16 02/08 1908 All vital signs available at the time of this en try have been reviewed. Condition Stable Clinical Impression Clinical Impression Primary Impression: Abdominal pain Disposition Decision Discharge )( Discharged to Home Yes )( Time 2206 )( Date 02/07/21 Discharge/Care Plan Counseled Regarding Diagnosis, Lab resul ts, Prescriptions, Need for follow-up, When to return to ED Rx Drug Database Reviewed Yes (Auto) Prescriptions Current Visit Scripts ACETAMINOPHEN/CODEINE (TYLENOL WITH CODE INE #3 300/30 MG) 1 TAB PO Q4H PRN PRN ACUTE PAIN ACETAMINOPHEN/CODEINE (TYLENOL WITH CODEINE #3 300/30 MG) 1 TAB PO Q4H PRN PRN ACUTE PAIN #15 TABS ONDANSETRON ODT (ZOFRAN ODT) 4 MG PO Q6H PRN PRN NAUSEA/VOMITING ONDANSETRON ODT (ZOFRAN ODT) 4 MG PO Q6H PRN CA N NAUSEA/VOMITING #[address] (NexIUM) 40 MG PO DAILY ESOMEPRAZOLE MAG DR (NexIUM) 40 MG PO DAILY #30 CAPS SUCRALFATE (CARAFATE 1 GM/10 ML) 1 GM PO AC HS SUCRALFATE (CARAFATE 1 GM/10 ML) 1 GM PO AC HS #1200 ML 1 GM = 10ML Patient Instructions ED Epigastric Pain Uncertai n Cause, ED PEPTIC ULCER vs GASTRITIS Referrals Víctor Harkins MD: 2-3 Days gastroenterology Discharge Note I have spoken with the patie nt and/or caregivers. I have explained the patient's condition, diagnoses and juan atment plan based on the information available to me at this time. I have answered the patient's and/ or caregiver's questions and addressed any concerns. The patient and/or careg jorge have as good an understanding of the patient 's diagnosis, condition and treatment plan as can be expected at this point. The vital signs have bee n stable. The patient's condition is stable and appr opriate for discharge from the emergency department. The patient will pursue further outpatient evalu ation with the primary care physician or other designated or consulting phys ician as outlined in the discharge instructions. The patient and/or caregivers are agreeable to this plan of care and follow-up instructions have been exp lained in detail. The patient and/or caregivers have received these instructio ns in written format and have expressed an understanding of the discharge inst ructions. The patient and/or caregivers are aware that any significant change in condition or worsening of symptoms should prompt an immediate return to [facility] or the closest emergency department or a call to 911. Electronically Signed by Hans Kang MD on at 1553 RPT #: [id number] END OF REPORT 2021-02-07 19:18:00-00:00 [id number] [facility] [address] [place] [address] PATIENT NAME: RICHMOND STANFORD ADMIT DATE: ACCOUNT NO: [id number] ROOM NO: AGE: 60 REPORT TYPE: eELECTROCARDIOGRAM SEX: F ADMITTING PHYSICIAN: ATTENDING PHYSICIAN: Agnes Bashir MD Order: [id number] Test Reason : ABD PAIN Test Date/Time Stamp: WedFeb 07 2021 19:18:54 Blood Pressure : / mmHG Vent. Rate : 075 BPM Atrial Rate : 075 BPM P-R Int : 130 ms QRS Dur : 094 ms QT Int : 396 ms P-R-T Axes : 070 014 000 degree s QTc Int : 442 ms Normal sinus rhythm Incomplete right bundle branch block Borderline ECG No previous ECGs available Confirmed by Wes Keen ([id number]) on 02/10/2021 7:57:35 PM Referred By: Agnes Bashir Confirmed by:Wes meyer at 1957 PATIENT NAME: RICHMOND STANFORD [id number]
[2023-03-10] MEDS ORDERED: ACETAMINOPHEN 500 MG TAB ONE (21:18)
--- NOTE | 2023-03-10 22:03 | RAD REPORT ---
EXAM DESCRIPTION: CT - Head Brain Wo Cont - 03/10/2023 9:54 pm CLINICAL HISTORY: Headache COMPARISON: None TECHNIQUE: Computed axial tomography of the head was obtained. IV contrast was not requested. All CT scans are performed using dose optimization technique as appropriate and may include automated exposure control or mA/KV adjustment according to patient size. FINDINGS: An intracranial bleed is not seen The ventricles are normal in caliber No extra-axial fluid collection is noted. No significant hypodensity within the brain is noted. 11 x 8 soft tissue structure superficial tissue adjacent to the left mastoid. The most inferior slice demonstrates a soft tissue structure which is only partially included in the field of view within the posterior left parotid gland. It is palpable. A couple of additional 3 dominick meter round soft tissue structures left parotid probably lymph nodes. Fluid within the sinuses/ mastoids is not seen. IMPRESSION: No acute intracranial abnormality is seen 11 x 8 soft tissue structure superficial tissues adjacent to the left mastoid probably a lymph node. Follow-up ultrasound in 3 months recommended to assess stability Soft tissue structure within the left parotid gland only partially included the field of view is palp able. It is recommended that the patient either have an ultrasound or CT neck for further evaluation
--- NOTE | 2023-03-10 22:29 | RAD REPORT ---
EXAM DESCRIPTION: CT - Soft Tissue Neck Wo Contr - 03/10/2023 10:01 pm CLINICAL HISTORY: Neck pain/. TECHNIQUE: Computed axial tomography of the neck was obtained. IV contrast was not requested. Coron al and sagittal reconstruction was performed. All CT scans are performed using dose optimization technique as appropriate and may include automated exposure control or mA/KV adjustment according to patient size. FINDINGS: The pharynx, tongue base, larynx and subglottic trachea appear unremarkable Several lymph nodes are present with the left parotid gland. The largest measures 1 centimeter 1 centimeter right supraclavicular lymph node. Several subcentimeter bilateral neck lymph. . Fluid within the sinuses/mastoids is not seen. IMPRESSION: 1 centimeter left parotid lymph node. 1 centimeter right supraclavicular node. Most like ly these are benign. However, it is recommended that patient have follow-up neck ultrasound in 3 bucky hs to assess stability
--- NOTE | 2023-03-10 23:09 | ER ---
Nurse's Notes [facility] Name: Alexander Byrd Age: 62 yrs Sex: Female : 1960 Arrival Date: 03/10/2023 Time: 20:40 Bed 19 Private MD: Diagnosis: Acute cervical lymphadenopathy, supraclavicular lymphadenopathy, parotid gland lymphadenopathy Presentation: 03/10 20:52 Chief complaint: Patient states: left ear pain and ringing X3 months. 3 days ago i cm10 noticed a knot under my ear by my neck and the pain is increasing. Coronavirus screen: Client denies travel out of the [place] in the last 14 days. At this time, the client does not indicate any symptoms associated with coronavirus-19. Ebola Screen: No symptoms or risks identified at this time. Initial Sepsis Screen: Does the patient meet any 2 criteria? No. Patient's initial sepsis screen is negative. Does the patient have a suspected source of infection? No. Patient's initial sepsis screen is negative. Risk Assessment: Do you want to hurt yourself or someone else? Patient reports no desire to harm self or others. Onset of symptoms is unknown. 20:52 Method Of Arrival: Ambulatory cm10 20:52 Acuity: ISAIAS 4 cm10 Triage Assessment: 20:54 General: Appears in no apparent distress. uncomfortable, Behavior is calm, cooperative. cm10 Pain: Complains of pain in left ear. EENT: No deficits noted. Reports ringing in left ear. Neuro: No deficits noted. Bunn Agitation-Sedation Scale (RASS): 0 - Alert and Calm Level of Consciousness is awake, alert, obeys commands, Oriented to person, place, time, situation. Cardiovascular: No deficits noted. Denies chest pain, shortness of breath, Capillary refill < 3 seconds Clubbing of nail beds is absent JVD is absent Patient's skin is warm and dry. Respiratory: No deficits noted. GI: No deficits noted. No signs and/or symptoms were reported involving the gastrointestinal system. : No deficits noted. No signs and/or symptoms were reported regarding the genitourinary system. Derm: No deficits noted. Skin is intact, is healthy with good turgor, Skin is dry, Skin is normal, Skin temperature is warm. Musculoskeletal: No deficits noted. Circulation, motion, and sensation intact. Range of motion: intact in all extremities. Historical: - Allergies: 20:54 Advil (lip swelling); cm10 20:54 peanuts; cm10 - Home Meds: 20:54 None [Active]; cm10 - PMHx: 20:54 h. pylori; Anxiety; cm10 - PSHx: 20:54 abdomminal tumor; cm10 - Immunization history:: Adult Immunizations up to date, Client reports having NOT received the Covid vaccine. - Social history:: Smoking status: Patient denies any tobacco usage or history of. Patient/guardian denies using alcohol, street drugs. - Family history:: not pertinent. Screenin:03 [facility] ED Fall Risk Assessment (Adult) History of falling in the last 3 months, sg5 including since admission No falls in past 3 months (0 pts). Abuse screen: Denies threats or abuse. Nutritional screening: No deficits noted. Tuberculosis screening: No symptoms or risk factors identified. Assessment: 21:03 General: Appears comfortable, Behavior is calm, cooperative, appropriate for age. Pain: sg5 Complains of pain in left ear Pain currently is 6 out of 10 on a pain scale. Neuro: Level of Consciousness is awake, alert, obeys commands, Oriented to person, place, time, situation, Appropriate for age. Cardiovascular: Capillary refill < 3 seconds Patient's skin is warm and dry. Respiratory: Airway is patent Trachea midline. GI: Abdomen is flat, non-distended. : No signs and/or symptoms were reported regarding the genitourinary system. EENT: Ear canal wax. Reports pain in left ear. Derm: No signs and/or symptoms reported regarding the dermatologic system. Musculoskeletal: No signs and/or symptoms reported regarding the musculoskeletal system. Vital Signs: 20:52 BP 178 / 86; Pulse 79; Resp 17 S; Temp 99.4(O); Pulse Ox 99% on R/A; Weight 68.04 kg cm10 (R); Height 5 ft. 2 in. (R); 22:00 BP 155 / 76; Pulse 65; Resp 16; Pulse Ox 98% on R/A; Pain 5/10; sg5 22:16 BP 150 / 83; Pulse 65; Resp 16; Pulse Ox 100% on R/A; sg5 20:52 Body Mass Index 27.44 (68.04 kg, 157.48 cm) cm10 22:00 Pain Scale: Adult sg5 ED Course: 20:45 Patient arrived in ED. ja2 20:54 Triage completed. cm10 20:54 Arm band placed on right wrist. cm10 20:56 Ash Dee MD is Attending Physician. sp4 21:03 Nina Rhodes, RN is Primary Nurse. sg5 21:03 Patient has correct armband on for positive identification. Bed in low position. Call sg5 light in reach. Valuables Left with patient. 21:56 CT Head Brain wo Cont In Process Unspecified. EDMS 22:03 Soft Tissue Neck Wo Contr In Process Unspecified. EDMS 23:07 Danny Mortensen MD is Referral Physician. sp4 23:32 No provider procedures requiring assistance completed. Patient did not have IV access sg5 during this emergency room visit. Administered Medications: 21:09 Drug: Acetaminophen PO 1000 mg Route: PO; sg5 23:31 Drug: Cephalexin PO 500 mg Route: PO; sg5 Medication: 23:32 VIS not applicable for this client. sg5 Outcome: 23:08 Discharge ordered by . sp4 23:32 Discharged to home ambulatory. sg5 23:32 Condition: good 23:32 Discharge instructions given to patient, Instructed on discharge instructions, follow up and referral plans. 23:32 Patient left the ED. sg5 Signatures: Dispatcher [employer] EDWV Nena Gonzales Ash Brewster MD MD sp4 Nina Rhodes, RN RN sg5 Carleen Mendoza RN RN cm10
--- NOTE | 2023-03-10 23:09 | EDPHYS ---
Physician Documentation [facility] Name: Alexander Byrd Age: 62 yrs Sex: Female : 1960 Arrival Date: 03/10/2023 Time: 20:40 Bed 19 Private MD: ED Physician Ash Dee HPI: 03/10 20:56 This 62 yrs old Female presents to ER via Ambulatory with complaints of Ear sp4 Injury. 23:34 62-year-old female presents with left earring given, left ear pain described as pain sp4 just below the left auricle also complaining of a swollen node below left auricle for the past 3-month. Patient states that she had a experiences bilateral ringing in the ears . Denied any ear discharge. Historical: - Allergies: 20:54 Advil (lip swelling); cm10 20:54 peanuts; cm10 - Home Meds: 20:54 None [Active]; cm10 - PMHx: 20:54 h. pylori; Anxiety; cm10 - PSHx: 20:54 abdomminal tumor; cm10 - Immunization history:: Adult Immunizations up to date, Client reports having NOT received the Covid vaccine. - Social history:: Smoking status: Patient denies any tobacco usage or history of. Patient/guardian denies using alcohol, street drugs. - Family history:: not pertinent. ROS: 23:34 Constitutional: Negative for fever, chills, and weight loss, Eyes: Negative for injury, sp4 pain, redness, and discharge, ENT: Negative for injury, and discharge, positive for left earache, pain under the left ear, positive for bilateral tinnitus Neck: Negative for injury, pain, and swelling, Cardiovascular: Negative for chest pain, palpitations, and edema, Respiratory: Negative for shortness of breath, cough, wheezing, and pleuritic chest pain, Abdomen/GI: Negative for abdominal pain, nausea, vomiting, diarrhea, and constipation, Back: Negative for injury and pain, : Negative for injury, bleeding, discharge, and swelling, MS/Extremity: Negative for injury and deformity, Skin: Negative for injury, rash, and discoloration, Neuro: Negative for headache, weakness, numbness, tingling, and seizure, Psych: Negative for depression, anxiety, Allergy/Immunology: Negative for hives, rash, and allergies Endocrine: Negative for neck swelling, polydipsia, polyuria, polyphagia, and weight changes Hematologic/Lymphatic: Negative for swollen nodes, abnormal bleeding, and unusual bruising Exam: 23:34 Constitutional: This is a well developed, well nourished patient who is awake, alert, sp4 and in no acute distress. Head/Face: Normocephalic, atraumatic. Eyes: Pupils equal round and reactive to light, extra-ocular motions intact. Lids and lashes normal. Conjunctiva and sclera are not injected. Cornea within normal limits. Periorbital areas with no swelling, redness, or edema. ENT: Nares patent. No nasal discharge, no septal abnormalities noted. Tympanic membranes are normal and external auditory canals are clear. Oropharynx with no redness, swelling, or masses, exudates, or evidence of obstruction, uvula midline. Mucous membranes moist. There is swelling and tenderness directly under the left auricle Neck: Trachea midline, no thyromegaly or masses palpated, and no cervical lymphadenopathy. Supple, full range of motion without nuchal rigidity, or vertebral point tenderness. Chest/axilla: Normal chest wall appearance and motion. Nontender with no deformity. No lesions are appreciated. Cardiovascular: Regular rate and rhythm with a normal S1 and S2. No gallops, murmurs, or rubs. Normal PMI, no JVD. No pulse deficits. Respiratory: Lungs have equal breath sounds bilaterally, clear to auscultation and percussion. No rales, rhonchi or wheezes noted. No increased work of breathing, no retractions or nasal flaring. Abdomen/GI: Soft, non-tender, with normal bowel sounds. No distension or tympany. No guarding or rebound. No evidence of tenderness throughout. Back: No spinal tenderness. No costovertebral tenderness. Female : Normal external genitalia. Skin: Warm, dry with normal turgor. Normal color with no rashes, no lesions, and no evidence of cellulitis. MS/ Extremity: Pulses equal, no cyanosis. Neurovascular intact. Full, normal range of motion. Neuro: Awake and alert, GCS 15, oriented to person, place, time, and situation. Cranial nerves II-XII grossly intact. Motor strength 5/5 in all extremities. Sensory grossly intact. Psych: Awake, alert, with orientation to person, place and time. Behavior, mood, and affect are within normal limits Vital Signs: 20:52 BP 178 / 86; Pulse 79; Resp 17 S; Temp 99.4(O); Pulse Ox 99% on R/A; Weight 68.04 kg cm10 (R); Height 5 ft. 2 in. (R); 22:00 BP 155 / 76; Pulse 65; Resp 16; Pulse Ox 98% on R/A; Pain 5/10; sg5 22:16 BP 150 / 83; Pulse 65; Resp 16; Pulse Ox 100% on R/A; sg5 20:52 Body Mass Index 27.44 (68.04 kg, 157.48 cm) cm10 22:00 Pain Scale: Adult sg5 MDM: 22:33 Patient medically screened. sp4 23:06 Data reviewed: radiologic studies, CT scan. ED course: EXAM DESCRIPTION: CT - Soft sp4 Tissue Neck Wo Contr - 03/10/2023 10:01 pm CLINICAL HISTORY: Neck pain/. TECHNIQUE: Computed axial tomography of the neck was obtained. IV contrast was not requested. Coronal and sagittal reconstruction was performed. All CT scans are performed using dose optimization technique as appropriate and may include automated exposure control or mA/KV adjustment according to patient size. FINDINGS: The pharynx, tongue base, larynx and subglottic trachea appear unremarkable Several lymph nodes are present with the left parotid gland. The largest measures 1 centimeter 1 centimeter right supraclavicular lymph node. Several subcentimeter bilateral neck lymph. . Fluid within the sinuses/mastoids is not seen. IMPRESSION: 1 centimeter left parotid lymph node. 1 centimeter right supraclavicular node. Most likely these are benign. However, it is recommended that patient have follow-up neck ultrasound in 3 months to assess stability. ED course: EXAM DESCRIPTION: CT - Head Brain Wo Cont - 03/10/2023 9:54 pm CLINICAL HISTORY: Headache COMPARISON: None TECHNIQUE: Computed axial tomography of the head was obtained. IV contrast was not requested. All CT scans are performed using dose optimization technique as appropriate and may include automated exposure control or mA/KV adjustment according to patient size. FINDINGS: An intracranial bleed is not seen The ventricles are normal in caliber No extra-axial fluid collection is noted. No significant hypodensity within the brain is noted. 11 x 8 soft tissue structure superficial tissue adjacent to the left mastoid. The most inferior slice demonstrates a soft tissue structure which is only partially included in the field of view within the posterior left parotid gland. It is palpable. A couple of additional 3 millimeter round soft tissue structures left parotid probably lymph nodes. Fluid within the sinuses/ mastoids is not seen. IMPRESSION: No acute intracranial abnormality is seen 11 x 8 soft tissue structure superficial tissues adjacent to the left mastoid probably a lymph node. Follow-up ultrasound in 3 months recommended to assess stability Soft tissue structure within the left parotid gland only partially included the field of view is palpable. It is recommended that the patient either have an ultrasound or CT neck for further evaluation. 23:34 Differential diagnosis: otitis media, otitis externa, ruptured TM, foreign body, acute sp4 otalgia, cerumen impaction. ED course: CT has revealed some scattered lymphadenopathy particularly below the left auricle, left parotid gland, right supraclavicular area. Although based on the CT report it does not appear like lymphoma or malignancy, patient was advised to see [facility] Dr. Mortensen in the office. Referral was provided to the patient. Patient was advised to have repeat CT with IV contrast of the head and neck within the next 30 days and also screening lab work at the primary MD office. . 03/10 21:05 Order name: CT Head Brain wo Cont; Complete Time: 22:51 sp4 03/10 21:56 Order name: Soft Tissue Neck Wo Contr; Complete Time: 22:51 EDMS Administered Medications: 21:09 Drug: Acetaminophen PO 1000 mg Route: PO; sg5 23:31 Drug: Cephalexin PO 500 mg Route: PO; sg5 Disposition Summary: 03/10/23 23:08 Discharge Ordered Location: Home sp4 Problem: new sp4 Symptoms: are unchanged sp4 Condition: Stable sp4 Diagnosis - Acute cervical lymphadenopathy, supraclavicular lymphadenopathy, parotid gland sp4 lymphadenopathy Followup: sp4 - With: Danny Mortensen MD - When: 10 - 14 days - Reason: Recheck today's complaints Discharge Instructions: - Discharge Summary Sheet sp4 - Lymphadenopathy sp4 Forms: - [email or web address] sp4 Prescriptions: - Cephalexin 500 mg Oral Capsule - take 1 capsule by ORAL route every 12 hours for 10 days; 20 capsule; Refills: sp4 0, Product Selection Permitted Signatures: Dispatcher [employer] sAh Moulton MD MD sp4 Nina Rhodes, RN RN sg5 Carleen Mendoza RN RN cm10
[2023-03-10 23:37] VITALS: TEMP 99.4
[2023-03-10] MEDS ORDERED: CEPHALEXIN 250 MG CAP ONE (23:37)
[2023-03-10 23:41] VITALS: BP 150/83; O2SAT 100
== END 2023-03-10 23:32 | disposition home or self-care (01) ==
LOC: ER 20:40
DX: R59.0 Localized enlarged lymph nodes (principal)
CPT/HCPCS: 70450; 70490; 99283

== ENCOUNTER 2024-08-18 10:06 | Emergency (ER) | payer SELFPAY ==
--- NOTE | 2024-08-18 10:52 | RAD REPORT ---
Procedure: Chest Single View HISTORY: Shortness of breath COMPARISON: 2020 FINDINGS: The lungs appear clear of acute infiltrate. Lungs are hyperaerated. No significant pleural effusion noted. The heart is normal size. IMPRESSION: No acute abnormality is displayed.
[2024-08-18 10:55] LABS: Absolute Basophils 0.1 K/uL (0-0.5); Absolute Eosinophils 0.1 K/uL (0-0.5); Absolute Monocytes 0.3 K/uL (0.1-1.3); Absolute Neutrophil 4.1 K/uL (1.8-8.0); Basophils % 0.7 % (0-1.3); Eosinophils % 1.3 % (0-4.4); Hematocrit 40.5 % (36.0-45.0); Hemoglobin 13.7 g/dL (12.0-15.0); Lymphocytes % 39.9 % (15.3-44.8); MCH 30.6 pg (27.0-35.0); MCHC 33.9 g/dL (32.0-36.0); MCV 90.3 fL (80-100); MPV 8.7 fL (7.6-11.3); Monocytes % 3.6 % (3.3-12.3); Neutrophils % 54.5 % (41.7-73.7); Nucleated Red Blood Cells % 0.2 % (0-0); Platelets 307 thou/uL (152-406); RBC Red Blood Cell Count 4.49 M/uL (3.86-4.86); Red Cell Distribution Width 12.8 % (12.1-15.2)
[2024-08-18 11:11] LABS: ALT/SGPT 17 U/L (13-56); AST/SGOT 12 U/L (15-37); Albumin 4.1 g/dL (3.4-5.0); Alkaline Phosphatase 105 U/L (45-117); Anion Gap 9.3 mEq/L (5.0-15.0); BUN Blood Urea Nitrogen 16 mg/dL (7-18); Bicarbonate 24 mEq/L (21-32); Bilirubin Direct 0.3 mg/dL (0-0.2); Bilirubin Indirect, Calculated 0.9 mg/dL (0.2-0.8); Bilirubin Total 1.2 mg/dL (0.2-1.0); Globulin 4.3 g/dL (2.3-3.5); Glomerular Filtration Rate 67 ml/min (=/>90); Glucose Level 103 mg/dL (74-106); Magnesium 2.2 mg/dL (1.6-2.4); NT PRO-BNP 73 pg/mL (<125); Potassium 3.3 mEq/L (3.5-5.1); Protein, Total 8.4 g/dL (6.4-8.2); Sodium Level 142 mEq/L (136-145)
[2024-08-18 11:14] LABS: PT Prothrombin Time 11.3 SECONDS (9.4-12.5); Protime INR 1.01; Troponin High Sensitivity < 3.0 pg/mL (<58.9)
--- NOTE | 2024-08-18 11:55 | ER ---
Nurse's Notes [facility] Name: Alexander Byrd Age: 63 yrs Sex: Female : 1960 Arrival Date: 08/18/2024 Time: 10:06 Bed 13 Private MD: Diagnosis: Shortness of breath, anxiety, gastritis Presentation: 08/18 10:11 Chief complaint: Chief complaint: Patient states: SOB, chest congestion, and pain to aa5 lower chest, pt states "every time I feel like this is H.Pylori but I just went to Dr. Guerrero and they tested me and I was negative for H.Pylori". Pt appears anxious during triage. 10:11 Coronavirus screen: congestion, nausea. Ebola Screen: Patient denies travel to an [facility] Ebola-affected area in the 21 days before illness onset. Initial Sepsis Screen: Does the patient meet any 2 criteria? No. Patient's initial sepsis screen is negative. Does the patient have a suspected source of infection? No. Patient's initial sepsis screen is negative. Risk Assessment: Do you want to hurt yourself or someone else? Patient reports no desire to harm self or others. Onset of symptoms was 2023. 10:11 Method Of Arrival: Ambulatory aa5 10:11 Acuity: ISAIAS 3 aa5 Historical: - Allergies: 10:22 peanuts; aa5 - PMHx: 10:22 Anxiety; h. pylori; aa5 - PSHx: 10:22 Abdominal tumor (Unknown); Cholecystectomy; aa5 - Immunization history:: Adult Immunizations unknown. - Infectious Disease History:: Denies. - Social history:: Smoking status: Patient denies any tobacco usage or history of. Screenin:36 [facility] ED Fall Risk Assessment (Adult) History of falling in the last 3 months, tm6 including since admission No falls in past 3 months (0 pts) Confusion or Disorientation No (0 pts) Intoxicated or Sedated No (0 pts) Impaired Gait No (0 pts) Mobility Assist Device Used No (0 pt) Altered Elimination No (0 pt) Score/Fall Risk Level 0 - 2 = Low Risk Oriented to surroundings, Maintained a safe environment, Educated pt \\T\\ family on fall prevention, incl call for assistance when getting out of bed. Abuse screen: Denies threats or abuse. Denies injuries from another. Nutritional screening: No deficits noted. Tuberculosis screening: No symptoms or risk factors identified. Assessment: 10:36 Reassessment: patient refusing swabs. General: Appears in no apparent distress. tm6 Behavior is anxious. Pain: Complains of pain in chest Pain currently is 2 out of 10 on a pain scale. Neuro: Level of Consciousness is awake, alert, obeys commands, Oriented to person, place, time, situation. Cardiovascular: Reports chest pain, Patient's skin is warm and dry. Rhythm is sinus rhythm. Respiratory: Reports shortness of breath Airway is patent Respiratory effort is even, unlabored, Respiratory pattern is regular, symmetrical, Breath sounds are clear. GI: Abdomen is flat, non-distended, Reports nausea. : No signs and/or symptoms were reported regarding the genitourinary system. EENT: No signs and/or symptoms were reported regarding the EENT system. Derm: No signs and/or symptoms reported regarding the dermatologic system. Musculoskeletal: No signs and/or symptoms reported regarding the musculoskeletal system. 11:57 Reassessment: Patient and/or family updated on plan of care and expected duration. Pain tm6 level reassessed. Patient is alert, oriented x 3, equal unlabored respirations, skin warm/dry/pink. 12:09 Reassessment: Patient and/or family updated on plan of care and expected duration. Pain tm6 level reassessed. Patient is alert, oriented x 3, equal unlabored respirations, skin warm/dry/pink. Vital Signs: 10:11 BP 161 / 91; Pulse 81; Resp 18 S; Temp 97.8(O); Pulse Ox 100% on R/A; Weight 63.96 kg aa5 (R); Height 5 ft. 2 in. (R); 10:45 BP 154 / 85; Pulse 71; Pulse Ox 98% on R/A; MAP 105 mmHg; tm6 11:56 BP 151 / 73; Pulse 66; Resp 17; Temp 97.8; Pulse Ox 99% on R/A; MAP 96 mmHg; Pain 0/10; tm6 10:11 Body Mass Index 25.79 (63.96 kg, 157.48 cm) aa5 11:56 Pain Scale: Adult tm6 ED Course: 10:07 Patient arrived in ED. im 10:10 Alfreda Singh MD is Attending Physician. sp3 10:11 Arm band placed on. aa5 10:24 Triage completed. aa5 10:26 EKG done, by ED staff, reviewed by Alfreda Singh MD. tm6 10:36 Jonah Dominguez, RN is Primary Nurse. tm6 10:36 Patient has correct armband on for positive identification. Placed in gown. Bed in low tm6 position. Call light in reach. Side rails up X 1. Provided Education on: use of call mckeon. Client placed on continuous cardiac and pulse oximetry monitoring. NIBP monitoring applied. gambling monitor on. Pulse ox on. NIBP on. Door closed. Noise minimized. Warm blanket given. Pillow given. 10:36 Missed attempt(s): 22 gauge in right upper arm. Bleeding controlled, band aid applied, tm6 catheter tip intact. Patient maintains SpO2 saturation greater than 95% on room air. 10:40 XRAY Chest (1 view) In Process Unspecified. EDMS 10:45 Troponin HS Sent. tm6 10:45 PT-INR Sent. tm6 10:45 NT PRO-BNP Sent. tm6 10:45 Magnesium Sent. tm6 10:45 LFT's Sent. tm6 10:45 CBC with Diff Sent. tm6 10:45 Basic Metabolic Panel Sent. tm6 10:45 Initial lab(s) drawn, by nj, sent to lab. Inserted saline lock: 22 gauge in right em1 wrist, using aseptic technique. Blood collected. Flushed with 10 mL NS. 12:09 No provider procedures requiring assistance completed. IV discontinued, intact, tm6 bleeding controlled, No redness/swelling at site. Pressure dressing applied. Administered Medications: No medications were administered Medication: 10:36 VIS not applicable for this client. tm6 Outcome: 11:55 Discharge ordered by . sp3 12:09 Discharged to home ambulatory, tm6 12:09 Condition: stable 12:09 Condition: stable 12:09 Discharge instructions given to patient, Instructed on discharge instructions, follow up and referral plans. Demonstrated understanding of instructions, follow-up care, 12:10 Patient left the ED. tm6 Signatures: Dispatcher [employer] EDMS Henrik Mendoza em1 Malaika Anderson, RN RN aa5 Alfreda Singh MD MD sp3 Sepideh Chilel Jonah Dominguez, RN RN tm6 Corrections: (The following items were deleted from the chart) 10:22 PSHx: abdomminal tumor; aa5 aa5 10:26 10:11 Chief complaint: aa5 aa5
--- NOTE | 2024-08-18 11:56 | EDPHYS ---
Physician Documentation [facility] Name: Alexander Byrd Age: 63 yrs Sex: Female : 1960 Arrival Date: 08/18/2024 Time: 10:06 Bed 13 Private MD: ED Physician Alfreda Singh HPI: 08/18 10:45 This 63 yrs old Female presents to ER via Ambulatory with complaints of sp3 Shortness Of Breath, Chest Pain, under breast pain, Sore Throat. 10:45 63-year-old female with a history of H. pylori in the past now presents from GI office sp3 for mild shortness of breath and upper respiratory symptoms. She is really upset because she tested negative for H. pylori. Patient states "I just want to know what the heck is going on". She denies any chest pain, back pain, lower abdominal pain, bleeding, diarrhea, no sick contacts, travel history, prolonged immobilization, or any other signs or symptoms on ROS at this time. She does states she has epigastric pain that radiates up that has been chronic in nature. That is what she was seeing Dr. Chapis sagastume.. Historical: - Allergies: 10:22 peanuts; aa5 - PMHx: 10:22 Anxiety; h. pylori; aa5 - PSHx: 10:22 Abdominal tumor (Unknown); Cholecystectomy; aa5 - Immunization history:: Adult Immunizations unknown. - Infectious Disease History:: Denies. - Social history:: Smoking status: Patient denies any tobacco usage or history of. ROS: 10:46 Constitutional: Negative for fever, chills, and weight loss, Eyes: Negative for injury, sp3 pain, redness, and discharge, Neck: Negative for injury, pain, and swelling, Cardiovascular: Negative for chest pain, palpitations, and edema, Abdomen/GI: Negative for abdominal pain, nausea, vomiting, diarrhea, and constipation, Back: Negative for injury and pain, : Negative for injury, bleeding, discharge, and swelling, MS/Extremity: Negative for injury and deformity, Skin: Negative for injury, rash, and discoloration, Neuro: Negative for headache, weakness, numbness, tingling, and seizure, Psych: Negative for depression, anxiety, suicide ideation, homicidal ideation, and hallucinations, Allergy/Immunology: Negative for hives, rash, and allergies, Endocrine: Negative for neck swelling, polydipsia, polyuria, polyphagia, and marked weight changes, 10:46 All other systems are negative, Exam: 10:46 Constitutional: This is a well developed, well nourished patient who is awake, alert, sp3 and in no acute distress. Head/Face: Normocephalic, atraumatic. Eyes: Pupils equal round and reactive to light, extra-ocular motions intact. Lids and lashes normal. Conjunctiva and sclera are non-icteric and not injected. Cornea within normal limits. Periorbital areas with no swelling, redness, or edema. ENT: Nares patent. No nasal discharge, no septal abnormalities noted. External auditory canals are clear. Oropharynx with no redness, swelling, or masses, exudates, or evidence of obstruction, uvula midline. Mucous membranes moist. Neck: Trachea midline, no thyromegaly or masses palpated, and no cervical lymphadenopathy. Supple, full range of motion without nuchal rigidity, or vertebral point tenderness. No Meningismus. Chest/axilla: Normal chest wall appearance and motion. Nontender with no deformity. No lesions are appreciated. Cardiovascular: Regular rate and rhythm with a normal S1 and S2. No gallops, murmurs, or rubs. Normal PMI, no JVD. No pulse deficits. Respiratory: Lungs have equal breath sounds bilaterally, clear to auscultation and percussion. No rales, rhonchi or wheezes noted. No increased work of breathing, no retractions or nasal flaring. Abdomen/GI: Soft, non-tender, with normal bowel sounds. No distension or tympany. No guarding or rebound. No evidence of tenderness throughout. Back: No spinal tenderness. No costovertebral tenderness. Full range of motion. Skin: Warm, dry with normal turgor. Normal color with no rashes, no lesions, and no evidence of cellulitis. MS/ Extremity: Pulses equal, no cyanosis. Neurovascular intact. Full, normal range of motion. Neuro: Awake and alert, GCS 15, oriented to person, place, time, and situation. Cranial nerves II-XII grossly intact. Motor strength 5/5 in all extremities. Sensory grossly intact. Cerebellar exam normal. Normal gait. Psych: Awake, alert, with orientation to person, place and time. Behavior, mood, and affect are within normal limits. 10:46 ECG was reviewed by the Attending Physician. EKG demonstrates normal sinus rhythm at 70 bpm with normal intervals, normal QRS, normal axis, normal ST/T-segment's without evidence of acute ischemia. Vital Signs: 10:11 BP 161 / 91; Pulse 81; Resp 18 S; Temp 97.8(O); Pulse Ox 100% on R/A; Weight 63.96 kg aa5 (R); Height 5 ft. 2 in. (R); 10:45 BP 154 / 85; Pulse 71; Pulse Ox 98% on R/A; MAP 105 mmHg; tm6 11:56 BP 151 / 73; Pulse 66; Resp 17; Temp 97.8; Pulse Ox 99% on R/A; MAP 96 mmHg; Pain 0/10; tm6 10:11 Body Mass Index 25.79 (63.96 kg, 157.48 cm) aa5 11:56 Pain Scale: Adult tm6 MDM: 10:11 Medical Screening Exam initiated sp3 10:47 Data reviewed: vital signs, nurses notes, lab test result(s), EKG, radiologic studies. sp3 ED course: 63-year-old female with shortness of breath. I am not highly suspicious of H. pylori, acute coronary syndrome, PE, pneumonia or any other critical process including sepsis and shock. Patient declined/refused all of viral swabs. Consider viral illness versus GERD versus gastritis. If initial workup is negative we will safely discharge patient home to continue GI follow-up.. 11:54 ED course: Full workup negative. Patient declined swabs. At this time we will safely sp3 discharge patient home to PCP follow-up.. 08/18 10:11 Order name: Basic Metabolic Panel; Complete Time: 11:54 sp3 08/18 10:11 Order name: CBC with Diff; Complete Time: 11:54 sp3 08/18 10:11 Order name: LFT's; Complete Time: 11:54 sp3 08/18 10:11 Order name: Magnesium; Complete Time: 11:54 sp3 08/18 10:11 Order name: NT PRO-BNP; Complete Time: 11:54 sp3 08/18 10:11 Order name: PT-INR; Complete Time: 11:54 sp3 08/18 10:11 Order name: Troponin HS; Complete Time: 11:54 sp3 08/18 10:22 Order name: Strep sp3 08/18 10:11 Order name: XRAY Chest (1 view); Complete Time: 10:57 sp3 08/18 10:11 Order name: EKG; Complete Time: 10: sp3 08/18 10:11 Order name: Cardiac monitoring; Complete Time: 10:26 sp3 08/18 10:11 Order name: EKG - Nurse/Tech; Complete Time: 10: sp3 08/18 10:11 Order name: IV Saline Lock; Complete Time: 10:45 sp3 08/18 10:11 Order name: Labs collected and sent; Complete Time: 10:45 sp3 08/18 10:11 Order name: O2 Per Protocol; Complete Time: 10: sp3 08/18 10:11 Order name: O2 Sat Monitoring; Complete Time: 10: sp3 Administered Medications: No medications were administered Disposition Summary: 08/18/24 11:55 Discharge Ordered Notes: Location: Home sp3 Condition: Stable sp3 Diagnosis - Shortness of breath, anxiety, gastritis sp3 Followup: sp3 - With: Private Physician - When: Upon discharge from the Emergency Department - Reason: Continuance of care Discharge Instructions: - Discharge Summary Sheet sp3 - Shortness of Breath, Adult, [id number] sp3 Forms: - Medication Reconciliation Form sp3 - Antibiotic Education sp3 - Prescription Opioid Use sp3 - Patient Portal Instructions sp3 - Leadership Thank You Letter sp3 Signatures: [facility] Malaika Baker RN RN aa5 Alfreda Singh MD MD sp3 Corrections: (The following items were deleted from the chart) 10:23 10:22 PSHx: abdomminal tumor; aa5 aa5
[2024-08-18 12:31] VITALS: TEMP 97.8
[2024-08-18 12:43] VITALS: BP 151/73; O2SAT 99
--- NOTE | 2024-08-22 12:10 | EKG ---
Test Date: 2024-08-18 Test Time: 10:21:12 Rn Social Work: [employer] MEASUREMENT RESULTS: Intervals: Rate: 70 CT: 138 QRSD: 94 QT: 410 QTc: 442 Dawson: P: 74 CT: 138 QRS: 29 T: 15 INTERPRETIVE STATEMENTS: Normal sinus rhythm Septal infarct, age undetermined Abnormal ECG Compared to ECG 02/05/2021 15:29:40 No significant changes Electronically Signed On 08-22-24 12:05:51 SURVEY COORDINATOR by Franki Bryan
== END 2024-08-18 12:10 | disposition home or self-care (01) ==
LOC: ER 10:06
DX: F41.9 Anxiety disorder, unspecified (principal); K29.70 Gastritis, unspecified, without bleeding
CPT/HCPCS: 36415; 71045; 80048; 80076; 83735; 83880; 84484; 85025; 85610; 87070; 87081; 93005; 99284